=== PATIENT | female | born 1940 | race Caucasian/White ===

== ENCOUNTER 2018-05-18 01:01 | Emergency (ER) | payer OTHER, SELFPAY ==
[2018-05-18 01:12] VITALS: BP 124/74; PULSE 100; RESP 18; TEMP 37.3; O2SAT 94; BMI 32.9
[2018-05-18 02:50] VITALS: PULSE 98; RESP 16; O2SAT 99
[2018-05-18 03:07] LABS: RBC Urine None Seen (0-5/HPF)
[2018-05-18 03:08] LABS: Bilirubin Urine UA NEGATIVE (NEGATIVE); Color Urine UA YELLOW; Glucose Urine UA NEGATIVE (Normal); Ketones Urine UA TRACE (NEGATIVE); Leukocyte Esterase Urine UA TRACE (NEGATIVE); Nitrite Urine UA POSITIVE (Negative); Occult Blood Urine UA NEGATIVE (Negative); Protein Urine UA TRACE (Negative); Specific Gravity Urine UA 1.015 (1.000-1.035); Urobilinogen Urine UA 0.2 E.U./dL (0.2); pH Urine UA 7.5 (4.5-8.0)
[2018-05-18 03:11] LABS: Appearance Urine UA Slightly Cloudy
[2018-05-18 03:15] LABS: Bacteria Urine Many (>30); Culture Indicated Urine Specimen Cultured; Squamous Epithelial Cell Urine 0-1 /HPF; WBC Urine 5-10/HPF (0-5/HPF)
[2018-05-18] MEDS: CODEINE/ACETAMINOPHEN 30/300 TABLET 1 TAB PO (03:15)
[2018-05-18] MEDS: KETOROLAC 60 MG/2 ML VIAL 30 MG IM (03:15)
--- NOTE | 2018-05-18 03:17 | ED_ITS ---
HPI - Back Pain/Injury General Chief Complaint: Back Pain/Injury Stated Complaint: Right hip/back pain Time Seen by Provider: 05/18/18 01:10 Source: patient and family Mode of arrival: ambulatory Limitations: no limitations History of Present Illness HPI Narrative: very pleasant 77-year-old female obviously in distress in her right lower back. She states she drove [place] and [place] [facility] [place] today and this afternoon when stepping out of the car she felt a sudden pain in her right lower back. The pain is sharp and stabbing in very much worse when she moves, it improves when she remains still. She denies any numbness, tingling or weakness. She denies any dysuria, frequency or urgency. She denies any specific or member will injury. She denies any history of the same. Patient denies systemic symptoms such as fever, chills nor nausea or vomiting, she denies any change in appetite MD Complaint: back pain Onset (ago): hour(s) Duration: constant Location: lumbar spine Quality: burning and sharp Radiation: right leg and flank Severity scale (1-10): 1 Relieving factors: supine Exacerbating factors: walking Related Data Previous Rx's Medication Instructions Recorded simvastatin [Zocor] 20 mg PO HS #90 tab 12/20/17 pantoprazole [Protonix] 40 mg PO EVERY OTHER DAY #45 tab 12/22/17 zolpidem 10 mg tablet 5 - 10 mg PO HS #30 tab 03/23/18 hydroxyzine HCl 25 mg tablet 25 mg PO BEDTIME PRN #30 tab 04/01/18 naproxen 500 mg tablet 500 mg PO BID #180 tab 04/22/18 fluoxetine 20 mg capsule 20 mg PO Q DAY #30 tab 05/11/18 acetaminophen-codeine 1 tab PO Q6H PRN #10 tab 05/18/18 [Tylenol-Codeine #3] cephalexin [Keflex] 500 mg PO QID 7 Days #28 cap 05/18/18 Review of Systems Review of Systems All systems reviewed & are unremarkable except as noted in HPI and below Constitutional Denies chills, Denies fever(s), Denies lethargy and Denies weakness Eyes Denies change in vision, Denies eye discharge, Denies irritation and Denies loss of vision ENT Ears, Nose, Mouth, and Throat: Denies change in voice, Denies neck pain and Denies sore throat Cardiovascular Denies chest pain, Denies irregular heart rhythm, Denies lightheadedness, Denies palpitations, Denies dyspnea, Denies dyspnea on exertion and Denies orthopnea Respiratory Denies cough, Denies dyspnea, Denies dyspnea on exertion and Denies wheezing Gastrointestinal Gastrointestinal: Denies abdominal pain, Denies change in bowel habits, Denies diarrhea, Denies nausea and Denies vomiting Genitourinary Denies hematuria, Denies flank pain, Denies urinary incontinence and Denies urinary urgency Musculoskeletal Reports limited range of motion, Reports muscle cramps and Denies neck pain Integumentary/Breasts Denies pruritus, Denies erythema, Denies rash and Denies wounds Neurologic Denies confusion, Denies loss of vision and Denies weakness Psychiatric Denies anxiety, Denies confusion, Denies depression, Denies homicidal ideation and Denies suicidal ideation Endocrine Denies palpitations Hematologic/Lymphatic Denies easy bruising Allergic/Immunologic Denies wheezing Exam Initial Vital Signs Initial Vital Signs: Vital Signs Temperature 99.1 F 05/18/18 01:12 Pulse Rate 100 H 05/18/18 01:12 Respiratory Rate 18 05/18/18 01:12 Blood Pressure 124/74 H 05/18/18 01:12 Pulse Oximetry 94 05/18/18 01:12 Const General: cooperative and well developed Nutritional Appearance: well nourished Orientation: alert, awake, oriented x3 and not confused [facility] Head: normocephalic and atraumatic Ears: external ears normal and TM's normal bilaterally Nose: external nose normal and No nasal discharge Face and sinus: sinuses nontender, face symmetric, no sinus tenderness and No dry mucous membranes Mouth: oral mucosae normal and moist mucous membranes Teeth and gingiva: dentition normal Throat: tonsils normal and uvula midline Eyes General: appearance normal, both eyes and all related structures Eyelids: eyelids normal Conjunctivae: conjunctivae normal Sclera: sclerae normal Pupils: PERRL EOM: EOM intact bilaterally Neck Neck: normal visual inspection, trachea midline, No lymphadenopathy, No midline deformity and No JVD Lymphatic: No lymphedema Chest Chest: normal inspection of the chest Resp Effort & Inspection: normal respiratory effort, able to speak in complete sentences, no respiratory distress and no use of accessory muscles Auscultation: clear to auscultation bilaterally, no rales, no rhonchi and no wheezes Cardio Rate: regular rate Rhythm: regular rhythm Heart Sounds: no click, no gallops, no murmurs and no rubs Pulses: normal peripheral pulses GI Inspection: non-distended Palpation: soft, no hepatosplenomegaly, No guarding, No pulsatile mass and No tender Auscultation: normal bowel sounds Back/Spine/Pelvis Back: No CVA tenderness Cervical Spine: cervical ROM normal and No pain with cervical ROM Thoracic/Lumbar Spine: thoracic and lumbar spine normal to inspection, thoraco- lumbar ROM limited, thoracic spinal tenderness and straight leg raise positive Skin General: no rashes or lesions noted, No jaundice and No petechiae Neuro General: alert, oriented x3, gait normal and no focal motor deficits Speech: speech normal Extrem General: full ROM, no clubbing, cyanosis or edema, no pedal edema and no calf tenderness Right lower extremity: normal to inspection and full ROM Psych Appearance: well kempt Mental Status: mental status grossly normal Attitude: cooperative Thought Content: normal and suicidality Judgment: judgment good Course Orders Ordered: ED Orders 05/18/18 02:50 Urinalysis and Microscopic Stat Urine Culture Stat Discontinued Medications Acetaminophen/Codeine Phosphate (Tylenol #3) 1 tab PO NOW ONE Stop: 05/18/18 03:13 Cephalexin HCl (Keflex) 500 mg PO NOW ONE Stop: 05/18/18 03:26 Last Admin: 05/18/18 03:37 Dose: 500 mg Ketorolac Tromethamine (Toradol) 30 mg IM NOW ONE Stop: 05/18/18 03:13 Vital Signs - 8 hr 05/18/18 01:12 Temperature 99.1 F Pulse Rate 100 H Respiratory Rate 18 Blood Pressure 124/74 H Pulse Oximetry 94 MDM - Back Pain/Injury Differential Diagnosis Differential diagnosis: Likely lumbar radiculopathy, sciatica, strain of lumbar region, renal colic, pyelonephritis, thoracic back pain, AAA and discitis Medical Records Attestation: I reviewed the patient's medical records. Lab Data Lab Results 05/18/18 Range/Units 02:50 Urine Color Yellow Urine Appearance Slightly cloudy Urine pH 7.5 (4.5-8.0) Ur Specific [place] 1.015 (1.000-1.035) Urine Protein Trace H (Negative) Urine Glucose (UA) Negative (Normal) g/dL Urine Ketones Trace H (NEGATIVE) Urine Occult Blood Negative (Negative) Urine Nitrate Positive H (Negative) Urine Bilirubin Negative (NEGATIVE) Urine Urobilinogen 0.2 (0.2) E.U./dL Ur Leukocyte Esterase Trace H (NEGATIVE) Urine RBC None seen (0-5/HPF) Urine WBC 5-10/hpf H (0-5/HPF) Ur Squamous Epith Cells 0-1 /hpf Urine Bacteria Many (>30) H (None) Ur Culture Indicated? Specimen cultured Micro UA Comment Not Reportable MDM Narrative Medical decision making narrative: Lumbar strain considered high in the differential with reproducibility of pain with change in motion and straight leg test. She has no numbness or tingling nor change in patellar reflex consistent with cauda equina. She does have pain with internal and external rotation of the hip suggesting potentially a hip joint etiology such as bursitis or labrum. Finally she has urine suggesting the possibility I urinary source such as pyelonephritis, however I would not expect straight leg raising or other isolated motions of the lower extremity to exacerbate pain of pyelonephritis. Given the potential severity of illness associated with not treating pyelonephritis feel administer antibiotics Discharge Plan Departure Patient Disposition: Home, Self-Care Clinical Impression: Strain of lumbar region, Pyelonephritis Instructions: Kidney Infection Activity Restrictions/Additional Instructions: *You have been diagnosed with [ acute lumbar pain and possible pyelonephritis ] *What to do: *Take medications as directed *Follow up with your primary care provider in 2-3 days, call for an appointment. Let them know you were seen in the Emergency Department and that we ask that you be seen in follow up *Return to ER if you should have any new, worsening or concerning symptoms , such as [fever greater than 101 F, persistent vomiting, other bothersome symptoms ] Prescriptions: New acetaminophen-codeine [Tylenol-Codeine #3] 300-30 mg tablet 1 tab PO Q6H PRN (Reason: pain) Qty: 10 RF: 0 cephalexin [Keflex] 500 mg capsule 500 mg PO QID 7 Days Qty: 28 RF: 0 No Action simvastatin [Zocor] 20 MG tablet 20 mg PO HS Qty: 90 RF: 1 pantoprazole [Protonix] 40 MG tablet,delayed release (DR/EC) 40 mg PO EVERY OTHER DAY Qty: 45 RF: 3 zolpidem [Ambien] 10 mg tablet 5 - 10 mg PO HS Qty: 30 RF: 0 hydroxyzine HCl 25 mg tablet 25 mg PO BEDTIME PRN (Reason: insomnia) Qty: 30 RF: 0 naproxen 500 mg tablet 500 mg PO BID Qty: 180 RF: 0 fluoxetine 20 mg capsule 20 mg PO Q DAY Qty: 30 RF: 0
[2018-05-18] MEDS: cephALEXin 250 MG CAPSULE 500 MG PO (03:37)
[2018-05-18 04:54] VITALS: BP 152/49; PULSE 80; RESP 17; O2SAT 99
== END 2018-05-18 04:30 | disposition home or self-care (01) ==
PROVIDERS: Emergency Provider Emergency Medicine; Family Provider Family Medicine; PCP Family Medicine
DX: S39.012A Strain of muscle, fascia and tendon of lower back, initial encounter (principal); N12 Tubulo-interstitial nephritis, not specified as acute or chronic
CPT/HCPCS: 81001; 87077; 87086; 87186; 96372; 99282; 99283; J1885

== ENCOUNTER 2018-05-19 07:55 | Emergency (ER) | payer OTHER, SELFPAY ==
[2018-05-19 08:02] VITALS: BP 134/58; PULSE 85; RESP 14; TEMP 37; O2SAT 94; BMI 33.8
--- NOTE | 2018-05-19 08:32 | DI.CT.S_ITS ---
PROCEDURE: CT KIDNEY URETER BLADDER (KUB) INDICATIONS: right flank pain TECHNIQUE: Noncontrast 5 mm thick sections acquired from the diaphragms to the symphysis. 5 mm thick coronal and sagittal reformats were then performed. For radiation dose reduction, the following was used: automated exposure control, adjustment of mA and/or kV according to patient size. COMPARISON: None. FINDINGS: Image quality: Excellent. Lung bases: Lung bases are clear. Heart size is normal. Urinary system: Both kidneys are atrophic with numerous low-density parapelvic masses most consistent with parapelvic cysts. No kidney stones. No hydronephrosis or perinephric fat stranding. Both ureters appear non-dilated throughout their expected courses. Bladder wall thickness is normal; no calcified bladder stones. Other solid organs: 9 mm low-density nodule in the anterior left lobe of the liver (se 2 im 18). Otherwise the liver is unremarkable. Cholecystectomy. The pancreas, spleen, and adrenal glands are radiographically normal.. Peritoneum and bowel: Unenhanced bowel loops demonstrate normal wall thickness and caliber. No free fluid or air. Small esophageal michaelle hernia. Colonic diverticulosis without evidence of acute diverticulitis. Normal appendix. Nodes and vessels: No retroperitoneal or mesenteric adenopathy by size criteria. Aorta and inferior vena cava are normal in caliber. Abdominal wall: No ventral hernias. Pelvis: No free pelvic fluid. No inguinal hernias or adenopathy. Uterus is present and contains a small hyperdense uterine fibroid. Bones: No suspicious bony lesions. No vertebral body compression fractures. Thoracolumbar curvature. IMPRESSION: 1. Both kidneys are atrophic with numerous circumscribed low-density parapelvic masses most consistent with parapelvic cysts. Confirmation would require a CT urogram with and without contrast. No hydronephrosis or ureterectasis. No renal or ureteral calculi. 2. There is no radiographic etiology identified for the patient's right flank pain. 3. Low-density hepatic nodule likely represents a simple cyst would also be confirmed with CT urogram. Dictated by: Darell Plascencia M.D. on 05/19/2018 at 8:54 Approved by: Darell Plascencia M.D. on 05/19/2018 at 9:03
--- NOTE | 2018-05-19 08:35 | ED_ITS ---
HPI - Back Pain/Injury General Chief Complaint: Back Pain/Injury Stated Complaint: 'bladder infection' Time Seen by Provider: 05/19/18 08:10 Source: patient Mode of arrival: ambulatory Limitations: no limitations History of Present Illness HPI Narrative: Patient is a 77-year-old female presenting with right-sided flank pain. She was seen evaluated here 24 hr ago where she was diagnosed with pyelonephritis and a back strain. Her urine did actually grow E coli waiting for sensitivities. She was discharged home on Keflex and Tylenol threes. She says the pain continues to worsen is nonradiating. It hurts whenever she straightens her leg. She denies any nausea vomiting or fevers. She has no abdominal pain. She denies any injury to her back. MD Complaint: back pain Related Data Previous Rx's Medication Instructions Recorded simvastatin [Zocor] 20 mg PO HS #90 tab 12/20/17 pantoprazole [Protonix] 40 mg PO EVERY OTHER DAY #45 tab 12/22/17 zolpidem 10 mg tablet 5 - 10 mg PO HS #30 tab 03/23/18 hydroxyzine HCl 25 mg tablet 25 mg PO BEDTIME PRN #30 tab 04/01/18 naproxen 500 mg tablet 500 mg PO BID #180 tab 04/22/18 fluoxetine 20 mg capsule 20 mg PO Q DAY #30 tab 05/11/18 acetaminophen-codeine 1 tab PO Q6H PRN #10 tab 05/18/18 [Tylenol-Codeine #3] cephalexin [Keflex] 500 mg PO QID 7 Days #28 cap 05/18/18 Allergies Allergy/AdvReac Type Severity Reaction Status Date / Time No Known Drug Allergies Allergy Verified 05/19/18 08:02 Review of Systems Review of Systems All systems reviewed & are unremarkable except as noted in HPI and below Constitutional Denies chills, Denies fever(s), Denies lethargy and Denies weakness Cardiovascular Denies chest pain, Denies irregular heart rhythm, Denies lightheadedness, Denies palpitations, Denies dyspnea, Denies dyspnea on exertion and Denies orthopnea Respiratory Denies cough, Denies dyspnea, Denies dyspnea on exertion and Denies wheezing Gastrointestinal Gastrointestinal: Denies abdominal pain, Denies change in bowel habits, Denies diarrhea, Denies nausea and Denies vomiting Genitourinary Reports as per HPI Musculoskeletal Denies back pain, Denies muscle weakness, Denies numbness and Denies tingling Integumentary/Breasts Denies pruritus, Denies erythema, Denies rash and Denies wounds Neurologic Denies numbness, Denies tingling and Denies weakness Endocrine Denies palpitations Allergic/Immunologic Denies wheezing PFSH Medical History GERD (gastroesophageal reflux disease) (Chronic Unknown) Osteoarthritis (Chronic Unknown) Depression (Acute) Hyperlipidemia (Acute) Surgical History Hx of cholecystectomy (Resolved Unknown) Family History Sister Cancer Exam Initial Vital Signs Initial Vital Signs: Vital Signs Temperature 98.6 F 05/19/18 08:02 Pulse Rate 85 05/19/18 08:02 Respiratory Rate 14 05/19/18 08:02 Blood Pressure 134/58 H 05/19/18 08:02 Pulse Oximetry 94 05/19/18 08:02 Const General: cooperative, healthy appearing and acute distress ( Appears in mild discomfort holding her right flank) HENMT Head: normal to inspection and normocephalic Mouth: oral mucosae normal Eyes General: appearance normal, both eyes and all related structures Neck Neck: normal visual inspection, full ROM and no meningeal signs Chest Chest: normal inspection of the chest Resp Effort & Inspection: normal respiratory effort, able to speak in complete sentences, no respiratory distress and no use of accessory muscles Auscultation: clear to auscultation bilaterally, no rales, no rhonchi and no wheezes Cardio Rate: regular rate Rhythm: regular rhythm Heart Sounds: S1 normal and S2 normal GI Palpation: soft, No guarding and No tender Auscultation: normal bowel sounds General: CVA tenderness ( right side) Back/Spine/Pelvis Back: back tenderness ( right flank lumbar region tenderness) Thoracic/Lumbar Spine: thoracic and lumbar spine normal to inspection Sacroiliac Joints: nontender Skin General: no rashes or lesions noted, No jaundice and No petechiae Neuro General: alert, oriented x3, gait normal and no focal motor deficits Speech: speech normal Extrem General: full ROM, no clubbing, cyanosis or edema, no pedal edema and no calf tenderness Course Orders Ordered: ED Orders 05/19/18 08:32 CT kidney ureter bladder (KUB) Stat 05/19/18 08:45 Complete Blood Count AUTO DIFF Stat Comprehensive Metabolic Panel Stat Lactate (Lactic Acid) Stat Discontinued Medications Ceftriaxone Sodium/Dextrose (Rocephin) 1 gm in 50 mls @ 100 mls/hr IV NOW ONE Stop: 05/19/18 08:56 Last Infusion: 05/19/18 09:44 Dose: 0 mls/hr Admin: 05/19/18 08:52 Dose: 100 mls/hr Sodium Chloride (Normal Saline 0.9%) 1,000 mls @ 1,000 mls/hr IV BOLUS ONE Stop: 05/19/18 09:26 Last Infusion: 05/19/18 10:35 Dose: 0 mls/hr Admin: 05/19/18 08:52 Dose: 1,000 mls/hr Ketorolac Tromethamine (Toradol) 15 mg IV NOW ONE Stop: 05/19/18 08:28 Last Admin: 05/19/18 08:52 Dose: 15 mg Vital Signs - 8 hr 05/19/18 08:02 05/19/18 09:13 05/19/18 09:48 Temperature 98.6 F Pulse Rate 85 98 H 91 H Respiratory Rate 14 18 18 Blood Pressure 134/58 H Blood Pressure [Left Arm] 129/55 H 127/57 H Pulse Oximetry 94 92 94 05/19/18 10:36 Temperature 98.7 F Pulse Rate 89 Respiratory Rate 19 Blood Pressure 114/55 L Blood Pressure [Left Arm] Pulse Oximetry 96 MDM - Back Pain/Injury Lab Data Result diagrams: 05/19/18 08:45 05/19/18 08:45 Lab Results 05/19/18 05/19/18 05/19/18 Range/Units 08:45 08:45 08:45 WBC 12.3 H (4.5-11.0) X10^3/uL RBC 4.36 (4.0-5.2) X10^6/uL Hgb 13.0 (12.0-16.0) g/dL Hct 38.7 (36-46) % MCV 88.8 (80-100) fL MCH 29.7 (26-34) PG MCHC 33.5 (30-36) % RDW 13.3 (11.6-14.8) % Plt Count 170 (150-400) X10^3/uL Neut % (Auto) 87.7 H (50-75) % Lymph % (Auto) 3.1 L (25-40) % [place] % (Auto) 8.4 (3-14) % Eos % (Auto) 0.4 L (2-4) % Baso % (Auto) 0.4 (0-2) % Neut # (Auto) 81268 H (8799-0136) /uL Sodium 140 (137-145) mmol/L Potassium 4.1 (3.4-5.1) mmol/L Chloride 104 (98-107) mmol/L Carbon Dioxide 25 (22-32) mmol/L BUN 15 (7-17) mg/dL Creatinine 0.70 (0.52-1.04) mg/dL Estimated GFR > 60.0 (>60) mL/min BUN/Creatinine Ratio 21.4 (6-22) Glucose 118 H (80-110) mg/dL Lactate 0.7 (0.7-2.1) mmol/L Calcium 8.7 (8.4-10.2) mg/dL Total Bilirubin 1.1 (0.2-1.3) mg/dL AST 18 (14-36) IU/L ALT 28 (9-52) IU/L Alkaline Phosphatase 74 (38-126) U/L Total Protein 6.5 (6.3-8.2) g/dL Albumin 3.8 (3.5-5.0) g/dL Globulin 2.7 (1.7-4.1) g/dL Albumin/Globulin Ratio 1.4 (1.0-2.8) Imaging Data CT scan - abdomen: Radiologist's impression: PROCEDURE: CT KIDNEY URETER BLADDER (KUB) INDICATIONS: right flank pain TECHNIQUE: Noncontrast 5 mm thick sections acquired from the diaphragms to the symphysis. 5 mm thick coronal and sagittal reformats were then performed. For radiation dose reduction, the following was used: automated exposure control, adjustment of mA and/or kV according to patient size. COMPARISON: None. FINDINGS: Image quality: Excellent. Lung bases: Lung bases are clear. Heart size is normal. Urinary system: Both kidneys are atrophic with numerous low-density parapelvic masses most consistent with parapelvic cysts. No kidney stones. No hydronephrosis or perinephric fat stranding. Both ureters appear non-dilated throughout their expected courses. Bladder wall thickness is normal; no calcified bladder stones. Other solid organs: 9 mm low-density nodule in the anterior left lobe of the liver (se 2 im 18). Otherwise the liver is unremarkable. Cholecystectomy. The pancreas, spleen, and adrenal glands are radiographically normal.. Peritoneum and bowel: Unenhanced bowel loops demonstrate normal wall thickness and caliber. No free fluid or air. Small esophageal michaelle hernia. Colonic diverticulosis without evidence of acute diverticulitis. Normal appendix. Nodes and vessels: No retroperitoneal or mesenteric adenopathy by size criteria. Aorta and inferior vena cava are normal in caliber. Abdominal wall: No ventral hernias. Pelvis: No free pelvic fluid. No inguinal hernias or adenopathy. Uterus is present and contains a small hyperdense uterine fibroid. Bones: No suspicious bony lesions. No vertebral body compression fractures. Thoracolumbar curvature. IMPRESSION: 1. Both kidneys are atrophic with numerous circumscribed low-density parapelvic masses most consistent with parapelvic cysts. Confirmation would require a CT urogram with and without contrast. No hydronephrosis or ureterectasis. No renal or ureteral calculi. 2. There is no radiographic etiology identified for the patient's right flank pain. 3. Low-density hepatic nodule likely represents a simple cyst would also be confirmed with CT urogram. Dictated by: Darell Plascencia M.D. on 05/19/2018 at 8:54 Approved by: Darell Plascencia M.D. on 05/19/2018 at 9:03 MDM Narrative Medical decision making narrative: Patient does not appear septic. Urine did grow E coli that is pansensitive. She received a dose of IV Rocephin and she is on Keflex she likely just the longer on antibiotics. Her pain improved after Toradol. I discussed all findings with the patient and family, Education has been performed regarding treatment plan, diagnosis, warning signs and symptoms and all concerns have been addressed. Verbally agree with and understood all of the above. Discharge Plan Departure Patient Disposition: Home, Self-Care Clinical Impression: Pyelonephritis Discharge Date/Time: 05/19/18 10:36 Interventions: ED Discharge Assessment Last Done: 05/19/18 10:36 Instructions: DI for Kidney Infection Activity Restrictions/Additional Instructions: *You have been diagnosed with kidney infection *What to do: Increase fluid intake, rest *Continue to take medications as directed -finished antibiotic as previously prescribed -may try ibuprofen 400 mg every 6-8 hours if needed for [id number] *Follow up with your primary care provider in 2-3 days *Return to ER if you should have increasing pain, inability a take antibiotic, fever not controlled with Tylenol or ibuprofen or any new, worsening or concerning symptoms Prescriptions: No Action simvastatin [Zocor] 20 MG tablet 20 mg PO HS Qty: 90 RF: 1 pantoprazole [Protonix] 40 MG tablet,delayed release (DR/EC) 40 mg PO EVERY OTHER DAY Qty: 45 RF: 3 zolpidem [Ambien] 10 mg tablet 5 - 10 mg PO HS Qty: 30 RF: 0 hydroxyzine HCl 25 mg tablet 25 mg PO BEDTIME PRN (Reason: insomnia) Qty: 30 RF: 0 naproxen 500 mg tablet 500 mg PO BID Qty: 180 RF: 0 fluoxetine 20 mg capsule 20 mg PO Q DAY Qty: 30 RF: 0 acetaminophen-codeine [Tylenol-Codeine #3] 300-30 mg tablet 1 tab PO Q6H PRN (Reason: pain) Qty: 10 RF: 0 cephalexin [Keflex] 500 mg capsule 500 mg PO QID 7 Days Qty: 28 RF: 0 Referrals: Eden Andrews DO [Primary Care Provider] -
[2018-05-19] MEDS: SODIUM CHLORIDE 0.9% 1,000 ML 1000 ML IV (08:52)
[2018-05-19] MEDS: KETOROLAC 60 MG/2 ML VIAL 15 MG IV (08:52)
[2018-05-19] MEDS: CEFTRIAXONE 1 GM/50 ML FROZ.PIGGY IV (08:52)
[2018-05-19 08:56] LABS: Add Manual Diff / Slide Review NO; Basophils Percent Auto 0.4 % (0-2); Eosinophils Percent Auto 0.4 % (2-4); Hematocrit 38.7 % (36-46); Lymphocytes Percent Auto 3.1 % (25-40); Mean Corpuscular HGB Conc 33.5 % (30-36); Mean Corpuscular Hemoglobin 29.7 PG (26-34); Mean Corpuscular Volume 88.8 fL (80-100); Monocytes Percent Auto 8.4 % (3-14); Neutrophils Absolute Auto 10800 /uL (3000-5900); Neutrophils Percent Auto 87.7 % (50-75); Platelet Count 170 X10^3/uL (150-400); Red Blood Cell Count 4.36 X10^6/uL (4.0-5.2); Red Cell Distribution Width 13.3 % (11.6-14.8); White Blood Cell Count 12.3 X10^3/uL (4.5-11.0)
[2018-05-19 09:06] LABS: Alanine Aminotransferase 28 IU/L (9-52); Albumin 3.8 g/dL (3.5-5.0); Albumin Globulin Ratio 1.4 (1.0-2.8); Alkaline Phosphatase 74 U/L (38-126); Aspartate Aminotransferase 18 IU/L (14-36); BUN Creatinine Ratio 21.4 (6-22); Bilirubin Total 1.1 mg/dL (0.2-1.3); Blood Urea Nitrogen 15 mg/dL (7-17); Calcium 8.7 mg/dL (8.4-10.2); Carbon Dioxide 25 mmol/L (22-32); Chloride 104 mmol/L (98-107); Estimated Glomerular Filt Rate > 60.0 mL/min (>60); Globulin 2.7 g/dL (1.7-4.1); Glucose 118 mg/dL (80-110); HEMOLYSIS < 15 (0-50); Potassium 4.1 mmol/L (3.4-5.1); Sodium 140 mmol/L (137-145); Total Protein 6.5 g/dL (6.3-8.2)
[2018-05-19 09:07] LABS: Lactate (Lactic Acid) 0.7 mmol/L (0.7-2.1)
[2018-05-19 09:13] VITALS: BP 129/55; PULSE 98; RESP 18; O2SAT 92
[2018-05-19 09:48] VITALS: BP 127/57; PULSE 91; RESP 18; O2SAT 94
[2018-05-19 10:36] VITALS: BP 114/55; PULSE 89; RESP 19; TEMP 37.1; O2SAT 96
== END 2018-05-19 10:36 | disposition home or self-care (01) ==
PROVIDERS: Emergency Provider Emergency Medicine; Family Provider Family Medicine; PCP Family Medicine
DX: N12 Tubulo-interstitial nephritis, not specified as acute or chronic (principal)
CPT/HCPCS: 36591; 74176; 80053; 83605; 85025; 96361; 96365; 96375; 99283; 99284; J1885

== ENCOUNTER → 2018-05-23 16:08 | Outpatient (CLI) | payer OTHER, SELFPAY | PROVIDERS: Family Provider Family Medicine; PCP Family Medicine; Visit Provider Physician Assistant | DX: N30.00 Acute cystitis without hematuria (principal) | CPT/HCPCS: 87086 ==

== ENCOUNTER → 2018-05-25 15:16 | Outpatient (CLI) | payer OTHER, SELFPAY ==
[2018-05-25 16:13] LABS: BUN Creatinine Ratio 16.7 (6-22); Blood Urea Nitrogen 15 mg/dL (7-17); Calcium 9.1 mg/dL (8.4-10.2); Carbon Dioxide 30 mmol/L (22-32); Chloride 106 mmol/L (98-107); Estimated Glomerular Filt Rate > 60.0 mL/min (>60); Glucose 128 mg/dL (80-110); HEMOLYSIS < 15 (0-50); Potassium 3.7 mmol/L (3.4-5.1); Sodium 146 mmol/L (137-145)
== END ==
PROVIDERS: Family Provider Family Medicine; PCP Family Medicine; Visit Provider Family Medicine
DX: N39.0 Urinary tract infection, site not specified (principal)
CPT/HCPCS: 36415; 80048

== ENCOUNTER → 2018-06-23 08:05 | Outpatient (CLI) | payer OTHER, SELFPAY ==
[2018-06-23 09:07] LABS: Hemoglobin A1C% w Est Avg Glu 5.5 % (4.0-6.0)
[2018-06-23 09:18] LABS: Appearance Urine UA SL CLOUDY; Bilirubin Urine UA NEGATIVE (NEGATIVE); Color Urine UA YELLOW; Glucose Urine UA NEGATIVE (Normal); Ketones Urine UA NEGATIVE (NEGATIVE); Leukocyte Esterase Urine UA TRACE (NEGATIVE); Nitrite Urine UA Negative (Negative); Occult Blood Urine UA TRACE-LYSED (Negative); Protein Urine UA NEGATIVE (Negative); Specific Gravity Urine UA 1.025 (1.000-1.035); Urobilinogen Urine UA 0.2 E.U./dL (0.2)
[2018-06-23 09:29] LABS: Bacteria Urine Many (>30); Culture Indicated Urine Specimen Cultured; Mucus Urine 1+ (Negative); RBC Urine 0-1/HPF (0-5/HPF); Squamous Epithelial Cell Urine 1-5 /HPF; WBC Urine 10-30/HPF (0-5/HPF)
[2018-06-23 10:06] LABS: Alanine Aminotransferase 21 IU/L (9-52); Albumin 4.2 g/dL (3.5-5.0); Albumin Globulin Ratio 1.6 (1.0-2.8); Alkaline Phosphatase 96 U/L (38-126); Aspartate Aminotransferase 25 IU/L (14-36); BUN Creatinine Ratio 21.3 (6-22); Bilirubin Total 0.5 mg/dL (0.2-1.3); Blood Urea Nitrogen 17 mg/dL (7-17); Calcium 9.5 mg/dL (8.4-10.2); Carbon Dioxide 29 mmol/L (22-32); Chloride 105 mmol/L (98-107); Estimated Glomerular Filt Rate > 60.0 mL/min (>60); Globulin 2.6 g/dL (1.7-4.1); Glucose 101 mg/dL (80-110); HEMOLYSIS < 15 (0-50); Potassium 4.9 mmol/L (3.4-5.1); Sodium 144 mmol/L (137-145); Total Protein 6.8 g/dL (6.3-8.2)
== END ==
PROVIDERS: PCP Family Medicine; Visit Provider Family Medicine
DX: R73.9 Hyperglycemia, unspecified (principal); N39.0 Urinary tract infection, site not specified
CPT/HCPCS: 36415; 80053; 81003; 81015; 83036; 87077; 87086; 87186

== ENCOUNTER → 2018-09-02 07:33 | Outpatient (CLI) | payer OTHER, SELFPAY ==
[2018-09-02 07:58] LABS: BUN Creatinine Ratio 26.3 (6-22); Blood Urea Nitrogen 21 mg/dL (7-17); Estimated Glomerular Filt Rate > 60.0 mL/min (>60)
--- NOTE | 2018-09-02 08:49 | DI.CT.S_ITS ---
PROCEDURE: CT ABDOMEN PELVIS WO/W CON INDICATIONS: renal cyst, hx of pyelonephritis TECHNIQUE: Optional 5 mm thick noncontrast images acquired from the diaphragm to the symphysis pubis. After the administration of intravenous contrast, 5 mm thick images acquired from the diaphragm to the symphysis pubis after a 10-minute delay. 2 mm thick coronal and sagittal reformats were then performed of the kidneys and ureters. For radiation dose reduction, the following was used: automated exposure control, adjustment of mA and/or kV according to patient size. COMPARISON: [facility], CT, CT KIDNEY URETER BLADDER (KUB), 05/19/2018, 8:26. FINDINGS: Image quality: Excellent. Lung bases: Lung bases are clear. Heart size is normal. Urinary system: Both kidneys are normal in size, without hydronephrosis or nephrolithiasis on pre-contrast images. No perinephric fat stranding. There is normal bilateral renal enhancement. Renal calyces appear normal in morphology when filled with contrast. Opacified portions of both ureters demonstrate normal caliber. Bladder wall thickness is normal. No calcified bladder stones. There are simple peripelvic cysts greater on the left than the right, with expected mild impingement on the course of the renal pelvis and collecting system but no urinary tract obstruction is found and no urothelial or renal cortical mass is identified. Other solid organs: Liver is normal in size and enhancement. Gallbladder is surgically resected. Biliary system is non dilated. Pancreas enhances normally. Spleen is normal in size and enhancement. No adrenal nodules. Peritoneum and bowel: Bowel loops demonstrate normal wall thickness and caliber. No free fluid or air. Nodes and vessels: No retroperitoneal or mesenteric adenopathy by size criteria. Aorta and inferior vena cava are normal in size. Abdominal wall: No ventral hernias. Pelvis: No pathologic free pelvic fluid. No inguinal hernias or adenopathy. Normal appendix right lower quadrant. Extensive diverticulosis but without acute diverticulitis at this time. Bones: No suspicious bony lesions. No vertebral body compression fractures. IMPRESSION: Peripelvic cysts are present in each kidney, left greater than right, and no urothelial or renal cortical mass lesion is found. No source of recurrent urinary tract infection is found either. Dictated by: Emir Smalls M.D. on 09/02/2018 at 13:00 Approved by: Emir Smalls M.D. on 09/02/2018 at 13:05
== END ==
PROVIDERS: PCP Family Medicine; Visit Provider Family Medicine
DX: Z01.812 Encounter for preprocedural laboratory examination (principal); N28.1 Cyst of kidney, acquired; Z87.448 Personal history of other diseases of urinary system
CPT/HCPCS: 36415; 74178; 82565; 84520; Q9967

== ENCOUNTER → 2019-02-07 07:06 | Outpatient (CLI) | payer OTHER, SELFPAY ==
[2019-02-07 09:17] LABS: Add Manual Diff / Slide Review NO; Basophils Absolute Auto 0 /uL (0-100); Eosinophils Absolute Auto 100 /uL (0-450); Eosinophils Percent Auto 3.8 % (2-4); Hematocrit 42.4 % (36-46); Hemoglobin 14.3 g/dL (12.0-16.0); Lymphocytes Absolute Auto 1100 /uL (1100-4500); Lymphocytes Percent Auto 30.5 % (25-40); Mean Corpuscular HGB Conc 33.8 % (30-36); Mean Corpuscular Hemoglobin 30.5 PG (26-34); Mean Corpuscular Volume 90.4 fL (80-100); Monocytes Absolute Auto 400 /uL (0-900); Monocytes Percent Auto 10.2 % (3-14); Neutrophils Absolute Auto 1900 /uL (1500-7000); Neutrophils Percent Auto 54.5 % (50-75); Platelet Count 237 X10^3/uL (150-400); Red Blood Cell Count 4.69 X10^6/uL (4.0-5.2); Red Cell Distribution Width 13.5 % (11.6-14.8); White Blood Cell Count 3.5 X10^3/uL (4.5-11.0)
[2019-02-07 09:35] LABS: Alanine Aminotransferase 23 IU/L (9-52); Albumin 4.2 g/dL (3.5-5.0); Albumin Globulin Ratio 1.5 (1.0-2.8); Alkaline Phosphatase 83 U/L (38-126); Aspartate Aminotransferase 20 IU/L (14-36); BUN Creatinine Ratio 13.3 (6-22); Bilirubin Total 0.3 mg/dL (0.2-1.3); Blood Urea Nitrogen 12 mg/dL (7-17); Calcium 9.4 mg/dL (8.4-10.2); Carbon Dioxide 29 mmol/L (22-32); Chloride 104 mmol/L (98-107); Cholesterol 181 mg/dL (140-199); Estimated Glomerular Filt Rate > 60.0 mL/min (>60); Globulin 2.8 g/dL (1.7-4.1); Glucose 97 mg/dL (80-110); HDL Cholesterol 58 mg/dL (40-60); HEMOLYSIS < 15 (0-50); LDL Cholesterol Calculated 95 mg/dL (<100); Potassium 4.3 mmol/L (3.4-5.1); Sodium 142 mmol/L (137-145); Triglycerides 140 mg/dL (35-150)
[2019-02-07 10:02] LABS: Thyroid Stimulating Hormone 0.66 uIU/mL (0.47-4.68)
== END ==
PROVIDERS: PCP Family Medicine; Visit Provider Family Medicine
DX: E78.5 Hyperlipidemia, unspecified (principal); Z51.81 Encounter for therapeutic drug level monitoring
CPT/HCPCS: 36415; 80053; 80061; 84443; 85025

== ENCOUNTER → 2019-10-19 07:29 | Outpatient (CLI) | payer OTHER, SELFPAY ==
[2019-10-19 08:47] LABS: Add Manual Diff / Slide Review NO; Basophils Absolute Auto 0 /uL (0-100); Basophils Percent Auto 1.3 % (0-2); Eosinophils Absolute Auto 200 /uL (0-450); Eosinophils Percent Auto 6.8 % (2-4); Hematocrit 42.4 % (36-46); Hemoglobin 14.1 g/dL (12.0-16.0); Lymphocytes Absolute Auto 1000 /uL (1100-4500); Lymphocytes Percent Auto 28.9 % (25-40); Mean Corpuscular HGB Conc 33.3 % (30-36); Mean Corpuscular Hemoglobin 29.7 PG (26-34); Mean Corpuscular Volume 89.3 fL (80-100); Monocytes Absolute Auto 300 /uL (0-900); Monocytes Percent Auto 10.2 % (3-14); Neutrophils Absolute Auto 1800 /uL (1500-7000); Neutrophils Percent Auto 52.8 % (50-75); Platelet Count 201 X10^3/uL (150-400); Red Blood Cell Count 4.74 X10^6/uL (4.0-5.2); White Blood Cell Count 3.3 X10^3/uL (4.5-11.0)
[2019-10-19 08:51] LABS: Hemoglobin A1C% w Est Avg Glu 5.1 % (4.0-6.0)
[2019-10-19 09:21] LABS: Alanine Aminotransferase 11 IU/L (<35); Albumin Globulin Ratio 1.7 (1.0-2.8); Alkaline Phosphatase 91 U/L (38-126); Aspartate Aminotransferase 21 IU/L (14-36); BUN Creatinine Ratio 13.3 (6-22); Bilirubin Total 0.4 mg/dL (0.2-1.3); Blood Urea Nitrogen 12 mg/dL (7-17); Calcium 9.3 mg/dL (8.4-10.2); Carbon Dioxide 29 mmol/L (22-32); Chloride 105 mmol/L (98-107); Cholesterol 166 mg/dL (140-199); Estimated Glomerular Filt Rate > 60.0 mL/min (>60); Globulin 2.3 g/dL (1.7-4.1); Glucose 92 mg/dL (80-110); HDL Cholesterol 66 mg/dL (40-60); HEMOLYSIS < 15 (0-50); LDL Cholesterol Calculated 74 mg/dL (<100); Potassium 4.3 mmol/L (3.4-5.1); Sodium 140 mmol/L (137-145); Total Protein 6.3 g/dL (6.3-8.2); Triglycerides 129 mg/dL (35-150)
[2019-10-19 09:52] LABS: Thyroid Stimulating Hormone 1.05 uIU/mL (0.47-4.68)
== END ==
PROVIDERS: PCP Family Medicine; Visit Provider Family Medicine
DX: E78.5 Hyperlipidemia, unspecified (principal); K21.9 Gastro-esophageal reflux disease without esophagitis; Z51.81 Encounter for therapeutic drug level monitoring
CPT/HCPCS: 36415; 80053; 80061; 83036; 84443; 85025

== ENCOUNTER → 2019-12-01 09:55 | Outpatient (CLI) | payer OTHER, SELFPAY ==
--- NOTE | 2019-12-01 09:56 | DI.MG.S_ITS ---
BILATERAL DIGITAL SCREENING MAMMOGRAM 3D/2D WITH CAD: 12/01/2019 CLINICAL: Routine screening. Family history of breast cancer. Comparison is made to exams dated: 12/14/2017 mammogram, 12/01/2016 mammogram, and 10/21/2015 mammogram - [facility]. The tissue of both breasts is heterogeneously dense. This may lower the sensitivity of mammography. Current study was also evaluated with a Computer Aided Detection (CAD) system. There is an oval low density asymmetry with an indistinct margin in the left breast posterior depth central to the nipple seen on the craniocaudal view only. No other significant masses, calcifications, or other findings are seen in either breast. IMPRESSION: INCOMPLETE: NEEDS ADDITIONAL IMAGING EVALUATION The oval low density asymmetry in the left breast is indeterminate. Mediolateral and spot compression views as well as additional views with possible ultrasound are recommended. This exam was interpreted at Station ID: [id number]. NOTE: For mammograms, a report in lay terms will be sent to the patient. Approximately 15% of breast malignancies will not be visualized mammographically. In the management of a palpable breast mass, a negative mammogram must not discourage biopsy of a clinically suspicious lesion. Electronically Signed By: Omari green/lc:12/01/2019 11:44:31 letter sent: Additional Imaging Needed ACR BI-RADS Category 0: Incomplete 3340F
== END ==
PROVIDERS: PCP Family Medicine; Visit Provider Family Medicine
DX: Z12.31 Encounter for screening mammogram for malignant neoplasm of breast (principal); Z80.3 Family history of malignant neoplasm of breast
CPT/HCPCS: 77063; 77067

== ENCOUNTER → 2019-12-07 14:27 | Outpatient (CLI) | payer OTHER, SELFPAY ==
--- NOTE | 2019-12-07 14:33 | DI.MG.S_ITS ---
Patient Name: GURINDER BLISS date: 1940 Sex: F Attending Physician: Juliana Indications: Date: 12/07/2019 14:33 At the request of: DALI WEEKS Procedure: MM special view LT UNILATERAL LEFT DIGITAL DIAGNOSTIC MAMMOGRAM 3D/2D WITH ADDITIONAL VIEWS: 12/07/2019 CLINICAL: Additional evaluation requested from prior study. Comparison is made to exams dated: 12/01/2019 mammogram, 12/14/2017 mammogram, and 12/01/2016 mammogram - [facility]. The tissue of left breast is heterogeneously dense. This may lower the sensitivity of mammography. Previously identified oval low density asymmetry with an indistinct margin in the left breast posterior depth central to the nipple seen on the craniocaudal view only on comparison screening mammograms of 12/01/19 persists with additional views. This localizes to the superior left breast on additional views. IMPRESSION: INCOMPLETE: NEEDS ADDITIONAL IMAGING EVALUATION Previously identified oval low density asymmetry with an indistinct margin in the left breast posterior depth central to the nipple seen on the craniocaudal view only on comparison screening mammograms of 12/01/19 persists with additional views. This localizes to the superior left breast on additional views. A targeted ultrasound is recommended for further evaluation, and will be performed immediately following this exam. This exam was interpreted at Station ID: [id number]. NOTE: For mammograms, a report in lay terms will be sent to the patient. Approximately 15% of breast malignancies will not be visualized mammographically. In the management of a palpable breast mass, a negative mammogram must not discourage biopsy of a clinically suspicious lesion. Electronically Signed By: Juan Barr M.D. ecl/:12/07/2019 15:00:35 ACR BI-RADS Category 0: Incomplete 3340F Continued Report - Page 2 of 2 Patient Name: GURINDER BLISS date: 1940 Sex: F Attending Physician: Juliana Indications: Date: 12/07/2019 14:33 At the request of: DALI WEEKS Procedure: MM special view LT
--- NOTE | 2019-12-07 15:35 | DI.US.S_ITS ---
Patient Name: GURINDER BLISS date: 1940 Sex: F Attending Physician: Rj Indications: Date: 12/07/2019 15:37 At the request of: KENTRELL CANNON Procedure: US breast LT limited LIMITED ULTRASOUND OF LEFT BREAST: 12/07/2019 CLINICAL: Patient returns for additional imaging over an asymmetry in the left breast. Comparison is made to exams dated: 12/01/2019 mammogram, 12/14/2017 mammogram, 12/01/2016 mammogram, and 12/07/2019 mammogram - [facility]. Color flow and real-time ultrasound of the left breast 6-7 o'clock, 11-12 o'clock, and retroareolar regions were performed. Ashford scale images of the real-time examination were reviewed. No underlying breast mass or abnormality is identified. There is no ultrasound correlate for the previously identified oval low density asymmetry with an indistinct margin in the left breast posterior depth central to the nipple seen on the craniocaudal view only on comparison screening mammograms of 12/01/19 which persisted with additional diagnostic views performed earlier today 12/07/19. IMPRESSION: PROBABLY BENIGN No ultrasound correlate for the previously identified oval low density asymmetry with an indistinct margin in the left breast posterior depth central to the nipple seen on the craniocaudal view only on comparison screening and diagnostic mammography. A follow-up mammogram and possible ultrasound in 6 months is recommended to demonstrate stability. The patient is advised to monitor her breasts and to return sooner for re-evaluation should she feel anything grow or change. This exam was interpreted at Station ID: [id number]. Electronically Signed By: Juan Barr M.D. ecl/:12/07/2019 16:12:56 letter sent: Followup Recommended Ultrasound BI-RADS: 3 Probably benign
== END ==
PROVIDERS: PCP Family Medicine; Referring Provider Family Medicine; Visit Provider Family Medicine
DX: R92.8 Other abnormal and inconclusive findings on diagnostic imaging of breast (principal); N64.89 Other specified disorders of breast
CPT/HCPCS: 76642; 77065; G0279

== ENCOUNTER → 2020-06-06 12:33 | Outpatient (CLI) | payer OTHER, SELFPAY ==
--- NOTE | 2020-06-06 | DI.MG.S_ITS ---
UNILATERAL LEFT DIGITAL DIAGNOSTIC MAMMOGRAM 3D/2D SHORT-TERM FOLLOW-UP: 06/06/2020 CLINICAL: Patient returns for a 6 month follow up of the left breast. Comparison is made to exams dated: 12/07/2019 mammogram, 12/01/2019 mammogram, and 12/14/2017 mammogram - [facility]. The tissue of left breast is heterogeneously dense. This may lower the sensitivity of mammography. There is a 0.7 cm oval low density focal asymmetry with indistinct margins in the left breast at 12 o'clock posterior depth. This is not significantly changed from the prior study and similar to the 2018 study. No other significant masses or calcifications are seen in the breast. IMPRESSION: PROBABLY BENIGN The 0.7 cm oval low density focal asymmetry in the left breast is probably benign. A follow-up mammogram in 6 months is recommended. A follow-up mammogram in 6 months is recommended to demonstrate stability. Patient will be due for screening mammography of the contralateral breast at that time. This exam was interpreted at Station ID: [id number]. NOTE: For mammograms, a report in lay terms will be sent to the patient. Approximately 15% of breast malignancies will not be visualized mammographically. In the management of a palpable breast mass, a negative mammogram must not discourage biopsy of a clinically suspicious lesion. Electronically Signed By: Omari green/:06/06/2020 13:18:14 letter sent: Followup Recommended ACR BI-RADS Category 3: Probably benign 3343F
== END ==
PROVIDERS: PCP Nurse Practitioner Family; Referring Provider Nurse Practitioner Family; Visit Provider Nurse Practitioner Family
DX: R92.8 Other abnormal and inconclusive findings on diagnostic imaging of breast (principal); N64.89 Other specified disorders of breast; D72.819 Decreased white blood cell count, unspecified
CPT/HCPCS: 77065; G0279

== ENCOUNTER → 2020-09-10 11:16 | Outpatient (CLI) | payer OTHER, SELFPAY ==
[2020-09-10 11:59] LABS: Add Manual Diff / Slide Review NO; Basophils Absolute Auto 0 /uL (0-100); Basophils Percent Auto 0.6 % (0-2); Eosinophils Absolute Auto 100 /uL (0-450); Eosinophils Percent Auto 2.5 % (2-4); Hemoglobin 14.1 g/dL (12.0-16.0); Lymphocytes Absolute Auto 1100 /uL (1100-4500); Lymphocytes Percent Auto 23.3 % (25-40); Mean Corpuscular HGB Conc 32.7 % (30-36); Mean Corpuscular Hemoglobin 29.8 PG (26-34); Mean Corpuscular Volume 90.9 fL (80-100); Monocytes Absolute Auto 400 /uL (0-900); Monocytes Percent Auto 9.6 % (3-14); Neutrophils Absolute Auto 3000 /uL (1500-7000); Platelet Count 230 X10^3/uL (150-400); Red Blood Cell Count 4.73 X10^6/uL (4.0-5.2); Red Cell Distribution Width 13.3 % (11.6-14.8); White Blood Cell Count 4.6 X10^3/uL (4.5-11.0)
== END ==
PROVIDERS: PCP Nurse Practitioner Family; Referring Provider Nurse Practitioner Family; Visit Provider Nurse Practitioner Family
DX: D72.819 Decreased white blood cell count, unspecified (principal)
CPT/HCPCS: 36415; 85025

== ENCOUNTER → 2020-11-22 12:23 | Outpatient (CLI) | payer MEDICARE, SELFPAY ==
[2020-11-22] MEDS: COVID-19 VACC #1, MRNA(MOD) 100 MCG/0.5 ML VIAL IM (12:37)
== END ==
PROVIDERS: PCP Nurse Practitioner Family; Visit Provider Internal Medicine
DX: Z23 Encounter for immunization (principal)
CPT/HCPCS: 0011A; 91301

== ENCOUNTER → 2020-12-13 07:09 | Outpatient (CLI) | payer OTHER, SELFPAY ==
--- NOTE | 2020-12-13 08:28 | DI.MG.S_ITS ---
BILATERAL DIGITAL DIAGNOSTIC MAMMOGRAM 3D/2D SHORT-TERM FOLLOW-UP: 12/13/2020 CLINICAL: Short term follow up of the left breast, due for bilateral imaging. Comparison is made to exams dated: 06/06/2020 mammogram, 12/07/2019 mammogram, 12/01/2019 mammogram, 12/14/2017 mammogram, and 10/21/2015 mammogram - [facility]. The tissue of both breasts is heterogeneously dense. This may lower the sensitivity of mammography. There is a 0.7 cm oval low density focal asymmetry with an indistinct margin in the left breast at 12 o'clock posterior depth. This is not significantly changed. This was not seen on prior ultrasound. No other significant masses, calcifications, or other findings are seen in either breast. IMPRESSION: PROBABLY BENIGN The 0.7 cm oval low density focal asymmetry in the left breast resembles an intramammary node and is probably benign. A follow-up mammogram in 12 months is recommended to demonstrate long-term stability. Exam findings were conveyed to the patient. This exam was interpreted at Station ID: [id number]. NOTE: For mammograms, a report in lay terms will be sent to the patient. Approximately 15% of breast malignancies will not be visualized mammographically. In the management of a palpable breast mass, a negative mammogram must not discourage biopsy of a clinically suspicious lesion. Electronically Signed By: Rakan Antony M.D. [facility] [place]/:12/13/2020 09:16:37 letter sent: Followup Recommended ACR BI-RADS Category 3: Probably benign 3343F
[2020-12-13 08:39] LABS: Hematocrit 44.9 % (36-46); Hemoglobin 14.5 g/dL (12.0-16.0); Mean Corpuscular HGB Conc 32.2 % (30-36); Mean Corpuscular Hemoglobin 29.5 PG (26-34); Mean Corpuscular Volume 91.5 fL (80-100); Platelet Count 206 X10^3/uL (150-400); Red Blood Cell Count 4.91 X10^6/uL (4.0-5.2); Red Cell Distribution Width 13.1 % (11.6-14.8); White Blood Cell Count 3.2 X10^3/uL (4.5-11.0)
[2020-12-13 08:54] LABS: Alanine Aminotransferase 11 IU/L (<35); Albumin 4.2 g/dL (3.5-5.0); Albumin Globulin Ratio 1.8 (1.0-2.8); Alkaline Phosphatase 77 U/L (38-126); Aspartate Aminotransferase 21 IU/L (14-36); BUN Creatinine Ratio 10.7 (6-22); Bilirubin Total 0.4 mg/dL (0.2-1.3); Blood Urea Nitrogen 9 mg/dL (7-17); Calcium 9.9 mg/dL (8.4-10.2); Carbon Dioxide 32 mmol/L (22-32); Chloride 105 mmol/L (98-107); Cholesterol 148 mg/dL (140-199); Estimated Glomerular Filt Rate > 60.0 mL/min (>60); Globulin 2.3 g/dL (1.7-4.1); Glucose 88 mg/dL (80-110); HDL Cholesterol 73 mg/dL (40-60); HEMOLYSIS < 15 (0-50); LDL Cholesterol Calculated 55 mg/dL (<100); Potassium 4.1 mmol/L (3.4-5.1); Sodium 140 mmol/L (137-145); Total Protein 6.5 g/dL (6.3-8.2); Triglycerides 102 mg/dL (35-150)
== END ==
PROVIDERS: PCP Nurse Practitioner Family; Referring Provider Nurse Practitioner Family; Visit Provider Nurse Practitioner Family
DX: R92.8 Other abnormal and inconclusive findings on diagnostic imaging of breast (principal); N64.89 Other specified disorders of breast; E78.5 Hyperlipidemia, unspecified; F32.9 Major depressive disorder, single episode, unspecified; M19.90 Unspecified osteoarthritis, unspecified site; D72.819 Decreased white blood cell count, unspecified
CPT/HCPCS: 36415; 77066; 80053; 80061; 85027; G0279

== ENCOUNTER → 2020-12-20 12:51 | Outpatient (CLI) | payer MEDICARE, SELFPAY ==
[2020-12-20] MEDS: COVID-19 VACC #2, MRNA(MOD) 100 MCG/0.5 ML VIAL IM (13:01)
== END ==
PROVIDERS: PCP Nurse Practitioner Family; Visit Provider Internal Medicine
DX: Z23 Encounter for immunization (principal)
CPT/HCPCS: 0012A; 91301

== ENCOUNTER → 2021-07-10 10:57 | Outpatient (CLI) | payer OTHER, SELFPAY ==
[2021-07-10 11:49] LABS: COVID19 -Nasal RAPID Negative (Negative)
== END ==
PROVIDERS: PCP Nurse Practitioner Family; Visit Provider Nurse Practitioner
DX: J02.9 Acute pharyngitis, unspecified (principal); R09.81 Nasal congestion; Z20.822 Contact with and (suspected) exposure to COVID-19
CPT/HCPCS: 87635

== ENCOUNTER → 2021-12-15 08:33 | Outpatient (CLI) | payer OTHER, SELFPAY ==
--- NOTE | 2021-12-15 08:34 | DI.MG.S_ITS ---
BILATERAL DIGITAL DIAGNOSTIC MAMMOGRAM 3D/2D: 12/15/2021 CLINICAL: 1 year follow up for left breast. Comparison is made to exams dated: 12/13/2020 mammogram, 06/06/2020 mammogram, 12/07/2019 mammogram, 12/01/2019 mammogram, and 12/14/2017 mammogram - [facility]. The tissue of both breasts is heterogeneously dense. This may lower the sensitivity of mammography. There is a 0.7 cm oval low density focal asymmetry with an obscured margin in the left breast at 12 o'clock posterior depth. This is not significantly changed and was not seen on the prior ultrasound. No other significant masses, calcifications, or other findings are seen in either breast. IMPRESSION: BENIGN There is no mammographic evidence of malignancy. The 0.7 cm oval low density focal asymmetry with an obscured margin in the left breast at 12 o'clock posterior depth has demonstrated two years of stability and is consistent with a benign process. A 1 year screening mammogram is recommended. Findings and recommendations were conveyed to the patient during today's evaluation. This exam was interpreted at Station ID: [id number]. NOTE: For mammograms, a report in lay terms will be sent to the patient. Approximately 15% of breast malignancies will not be visualized mammographically. In the management of a palpable breast mass, a negative mammogram must not discourage biopsy of a clinically suspicious lesion. Electronically Signed By: Kyaw Perez M.D. aty/:12/15/2021 09:31:35 letter sent: Normal Exam ACR BI-RADS Category 2: Benign Finding(s) 3342F
== END ==
PROVIDERS: PCP Nurse Practitioner Family; Referring Provider Nurse Practitioner Family; Visit Provider Nurse Practitioner Family
DX: R92.8 Other abnormal and inconclusive findings on diagnostic imaging of breast (principal); N64.89 Other specified disorders of breast
CPT/HCPCS: 77066; G0279

== ENCOUNTER → 2021-12-26 07:27 | Outpatient (CLI) | payer OTHER, SELFPAY ==
[2021-12-26 09:05] LABS: Hematocrit 44.3 % (36-46); Hemoglobin 14.3 g/dL (12.0-16.0); Mean Corpuscular HGB Conc 32.3 % (30-36); Mean Corpuscular Hemoglobin 29.6 PG (26-34); Mean Corpuscular Volume 91.9 fL (80-100); Platelet Count 218 X10^3/uL (150-400); Red Blood Cell Count 4.82 X10^6/uL (4.0-5.2); Red Cell Distribution Width 13.7 % (11.6-14.8); White Blood Cell Count 3.5 X10^3/uL (4.5-11.0)
[2021-12-26 11:03] LABS: Alanine Aminotransferase 13 IU/L (<35); Albumin 4.2 g/dL (3.5-5.0); Albumin Globulin Ratio 1.6 (1.0-2.8); Alkaline Phosphatase 70 U/L (38-126); Aspartate Aminotransferase 24 IU/L (14-36); BUN Creatinine Ratio 13.5 (6-22); Bilirubin Total 0.5 mg/dL (0.2-1.3); Blood Urea Nitrogen 13 mg/dL (7-17); Calcium 9.1 mg/dL (8.4-10.2); Carbon Dioxide 26 mmol/L (22-32); Chloride 108 mmol/L (98-107); Cholesterol 178 mg/dL (140-199); Estimated Glomerular Filt Rate 56.1 mL/min (>60); Globulin 2.7 g/dL (1.7-4.1); Glucose 95 mg/dL (80-110); HDL Cholesterol 75 mg/dL (40-60); HEMOLYSIS < 15 (0-50); LDL Cholesterol Calculated 75 mg/dL (<100); Potassium 4.1 mmol/L (3.4-5.1); Sodium 141 mmol/L (137-145); Total Protein 6.9 g/dL (6.3-8.2); Triglycerides 142 mg/dL (35-150)
== END ==
PROVIDERS: PCP Nurse Practitioner Family; Referring Provider Nurse Practitioner Family; Visit Provider Nurse Practitioner Family
DX: Z13.6 Encounter for screening for cardiovascular disorders (principal); Z00.00 Encounter for general adult medical examination without abnormal findings
CPT/HCPCS: 36415; 80053; 80061; 85027

== ENCOUNTER → 2021-12-29 09:39 | Outpatient (CLI) | payer OTHER, SELFPAY ==
[2021-12-31 08:09] LABS: Fecal Immunochemical Test Negative (Negative)
== END ==
PROVIDERS: PCP Nurse Practitioner Family; Referring Provider Nurse Practitioner Family; Visit Provider Nurse Practitioner Family
DX: Z12.11 Encounter for screening for malignant neoplasm of colon (principal)
CPT/HCPCS: 82274

== ENCOUNTER → 2022-02-19 09:18 | Outpatient (CLI) | payer OTHER, SELFPAY ==
[2022-02-19 10:34] LABS: BUN Creatinine Ratio 15.6 (6-22); Blood Urea Nitrogen 15 mg/dL (7-17); Calcium 9.1 mg/dL (8.4-10.2); Carbon Dioxide 27 mmol/L (22-32); Chloride 109 mmol/L (98-107); Estimated Glomerular Filt Rate > 60 mL/min (>60); Glucose 107 mg/dL (80-110); HEMOLYSIS < 15 (0-50); Potassium 4.3 mmol/L (3.4-5.1); Sodium 141 mmol/L (137-145)
== END ==
PROVIDERS: PCP Nurse Practitioner Family; Referring Provider Nurse Practitioner Family; Visit Provider Nurse Practitioner Family
DX: R94.4 Abnormal results of kidney function studies (principal)
CPT/HCPCS: 36415; 80048

== ENCOUNTER 2022-04-12 10:40 | Emergency (ER) | payer OTHER, SELFPAY ==
[2022-04-12] VITALS (11 sets, daily range): BP systolic 119–146; BP diastolic 61–77; PULSE 76–98; RESP 18; TEMP 36.8; O2SAT 94–98; BMI 30.1
--- NOTE | 2022-04-12 11:04 | DI.RAD.S_ITS ---
PROCEDURE: XR CHEST 1V INDICATIONS: chest pain TECHNIQUE: One view of the chest was acquired. COMPARISON: [facility], CHEST 2 VIEW, 08/19/2009, 14:28. [facility], CHEST 2 VIEW, 01/20/2013, 10:40. FINDINGS: Surgical changes and devices: None. Lungs and pleura: On this semiupright portable chest examination, no large pneumothorax or large pleural effusions are seen. No focal infiltrates are seen. Low lung volumes are noted. This causes a crowded appearance to the lung markings and limits evaluation. Mediastinum: Mediastinal contours appear normal. Heart size is normal. Bones and chest wall: No suspicious bony lesions. Age-appropriate bony degenerative changes are seen. Mild dextroconvex scoliotic curvature is seen. Overlying soft tissues appear unremarkable. IMPRESSION: Limited portable chest examination, without a significant cardiopulmonary abnormality identified. Dictated by: Teodoro Multani M.D. on 04/12/2022 at 10:36 Approved by: Teodoro Multani M.D. on 04/12/2022 at 10:37
--- NOTE | 2022-04-12 12:07 | ED_ITS ---
HPI - Dizziness General Chief Complaint: Dizziness Stated Complaint: dizzy naseaous Time Seen by Provider: 04/12/22 12:05 Source: patient and family Mode of arrival: Ambulatory Limitations: no limitations History of Present Illness HPI Narrative: This is a 81-year-old female with history of dyslipidemia, depression and insomnia. Patient Comes emergency department who states upon awakening this morning when she got up out of bed she felt dizzy, she felt little lightheaded she did have any passing out, she does not admit directly that she has spinning of the room but does feel be off balance and it is worse with movement of her head even when seated. She only really appreciates that when she is walking. About well-seated in the bed if she moves her head quickly or vigorously she has symptoms. She denies headache, no acute vision changes, no numbness, tingling or weakness in her extremities, no facial droop or issues with speech. She has not had similar symptoms in the past. No fevers, chills or cold cough or congestive symptoms. Denies chest pain or shortness of breath. No nausea or vomiting, no issues with bowel movements or urination. She is on simvastatin, sertraline and trazodone daily. She has had a prior cholecystectomy 30 years ago. No allergies. No tobacco, alcohol or illicit. Her primary care was Lorelei Patel who has left the area and she is currently transitioning to a new provider in the same clinic. Related Data Previous Rx's Medication Instructions Recorded trazodone 50 mg tablet See Rx Instructions .Route 01/16/22 .COMPLEX #180 tabs sertraline 50 mg tablet 50 mg PO DAILY #90 tabs 01/20/22 simvastatin 20 mg tablet See Rx Instructions .Route 01/20/22 .COMPLEX #90 tabs meclizine 25 mg tablet 25 mg PO QID PRN dizziness #20 tabs 04/12/22 Allergies Allergy/AdvReac Type Severity Reaction Status Date / Time No Known Drug Allergies Allergy Verified 01/20/22 10:37 Review of Systems Review of Systems ROS Unobtainable: All systems reviewed & are unremarkable except as noted in HPI and below Patient History Medical History Abnormal mammogram Decreased glomerular filtration rate (GFR) (12/2021) Depression GERD (gastroesophageal reflux disease) (Unknown) Hyperlipidemia Osteoarthritis (Unknown) Pain in both knees Surgical History Hx of cholecystectomy (Unknown) Family History Sister Cancer Social History Smoking Status: Never smoker second hand exposure: No alcohol intake: never substance use type: does not use Smoking Status: Never smoker Substance Use Type: does not use Exam Narrative Exam Narrative: GEN: well nourished, well appearing female, alert and oriented x 3, patient appears to be in mild distress. HEENT: Atraumatic, pupils are equal round reactive to light, extraocular movements are intact, nares are clear, TMs are clear with no fluid, there is no conjunctival pallor. Throat is clear without any exudates, erythema, tonsillar enlargement or uvular deviation, no facial droop HEART: Regular rate and rhythm without murmur, clicks, rubs. No carotid bruits, pulses are equal in upper and lower extremities LUNGS:Lungs clear to auscultation, no wheezes, rales, crackles, chest moves symmetrically ABD:bowel sounds normal, soft, non-tender, no guarding, rebound, rigidity, no masses noted, no hepatosplenomegaly :No CVA tenderness MSCL: Non-tender, no muscle atrophy, muscles strength 5/5 upper and lower extremities, full range of motion NEURO:CN 2-12 intact, sensation normal, reflexes 2/4 upper and lower extremities. finger nose finger test normal, heel brambila test normal SKIN: No rash, erythema or other skin changes Initial Vital Signs Initial Vital Signs: Vital Signs Temperature 98.3 F 04/12/22 10:58 Pulse Rate 90 04/12/22 10:58 Respiratory Rate 18 04/12/22 10:58 Blood Pressure 145/70 H 04/12/22 10:58 Pulse Oximetry 97 04/12/22 10:58 Oxygen Delivery Method 04/12/22 10:58 Scores NIH Stroke Scale Level of Conciousness: Alert, keenly responsive Ask month/age: Answers both questions correctly. Open/close eyes, close hand: Performs both tasks correctly Best gaze horizontal: Normal Visual bragg: No visual loss Facial palsy: Normal symetrical movement Left arm drift: No drift for full 10 sec Right arm drift: No drift for full 10 sec Left leg drift: No drift for full 5 sec Right leg drift: No drift for full 5 sec Limb ataxia: Absent Sensory on face/arms/legs: Normal, no sensory loss Best language: No aphasia, normal Dysarthria: Normal Extinction or inattention: No abnormality Total NIH Stroke scale score: 0 Course Orders Ordered: Discontinued Medications Meclizine HCl (Meclizine Hcl 12.5 Mg Tablet) 25 mg PO NOW ONE Stop: 04/12/22 12:38 Last Admin: 04/12/22 13:00 Dose: 25 mg Documented By: ELISHA Vital Signs Vital signs: Vital Signs - 8 hr 04/12/22 10:58 04/12/22 12:08 04/12/22 13:25 Temperature 98.3 F Pulse Rate 90 84 Pulse Rate [Orthostatic Lying] 76 Pulse Rate [Orthostatic Sitting] 83 Pulse Rate [Orthostatic Standing] 98 H Respiratory Rate 18 18 Blood Pressure 145/70 H 127/61 Blood Pressure [Orthostatic Lying] 121/71 Blood Pressure [Orthostatic Sitting] 132/74 Blood Pressure [Orthostatic Standing] 146/77 H Pulse Oximetry 97 94 Oxygen Delivery Method Room Air Room Air 04/12/22 12:07 04/12/22 12:08 04/12/22 12:08 Temperature Pulse Rate 79 77 Pulse Rate [Orthostatic Lying] Pulse Rate [Orthostatic Sitting] Pulse Rate [Orthostatic Standing] Respiratory Rate Blood Pressure 122/62 Blood Pressure [Orthostatic Lying] Blood Pressure [Orthostatic Sitting] Blood Pressure [Orthostatic Standing] Pulse Oximetry 96 96 Oxygen Delivery Method 04/12/22 12:30 04/12/22 12:31 04/12/22 12:31 Temperature Pulse Rate 81 79 Pulse Rate [Orthostatic Lying] Pulse Rate [Orthostatic Sitting] Pulse Rate [Orthostatic Standing] Respiratory Rate Blood Pressure 138/74 Blood Pressure [Orthostatic Lying] Blood Pressure [Orthostatic Sitting] Blood Pressure [Orthostatic Standing] Pulse Oximetry 96 96 Oxygen Delivery Method 04/12/22 13:07 04/12/22 13:11 04/12/22 13:11 Temperature Pulse Rate 84 79 Pulse Rate [Orthostatic Lying] Pulse Rate [Orthostatic Sitting] Pulse Rate [Orthostatic Standing] Respiratory Rate Blood Pressure 121/71 Blood Pressure [Orthostatic Lying] Blood Pressure [Orthostatic Sitting] Blood Pressure [Orthostatic Standing] Pulse Oximetry 97 98 Oxygen Delivery Method 04/12/22 13:17 04/12/22 13:17 04/12/22 13:19 Temperature Pulse Rate 94 H 94 H Pulse Rate [Orthostatic Lying] Pulse Rate [Orthostatic Sitting] Pulse Rate [Orthostatic Standing] Respiratory Rate Blood Pressure 130/77 Blood Pressure [Orthostatic Lying] Blood Pressure [Orthostatic Sitting] Blood Pressure [Orthostatic Standing] Pulse Oximetry 98 97 Oxygen Delivery Method 04/12/22 13:19 04/12/22 13:30 04/12/22 13:30 Temperature Pulse Rate 83 Pulse Rate [Orthostatic Lying] Pulse Rate [Orthostatic Sitting] Pulse Rate [Orthostatic Standing] Respiratory Rate Blood Pressure 146/77 H 119/68 Blood Pressure [Orthostatic Lying] Blood Pressure [Orthostatic Sitting] Blood Pressure [Orthostatic Standing] Pulse Oximetry 97 Oxygen Delivery Method MDM - Dizziness Lab Data Result diagrams: 04/12/22 12:15 04/12/22 12:15 Labs: Lab Results 04/12/22 04/12/22 04/12/22 Range/Units 12:15 12:15 13:08 WBC 4.9 (4.5-11.0) X10^3/uL RBC 4.58 (4.0-5.2) X10^6/uL Hgb 13.8 (12.0-16.0) g/dL Hct 40.9 (36-46) % MCV 89.3 (80-100) fL MCH 30.1 (26-34) PG MCHC 33.7 (30-36) % RDW 12.8 (11.6-14.8) % Plt Count 228 (150-400) X10^3/uL Neut % (Auto) 72.6 (50-75) % Lymph % (Auto) 15.4 L (25-40) % Tripp % (Auto) 10.1 (3-14) % Eos % (Auto) 1.1 L (2-4) % Baso % (Auto) 0.8 (0-2) % Neut # (Auto) 3600 (6440-5101) /uL Lymph # (Auto) 800 L (1844-3976) /uL Tripp # (Auto) 500 (0-900) /uL Eos # (Auto) 100 (0-450) /uL Baso # (Auto) 0 (0-100) /uL Sodium 136 L (137-145) mmol/L Potassium 4.1 (3.4-5.1) mmol/L Chloride 106 (98-107) mmol/L Carbon Dioxide 24 (22-32) mmol/L BUN 13 (7-17) mg/dL Creatinine 0.87 (0.52-1.04) mg/dL Estimated GFR > 60 (>60) mL/min BUN/Creatinine Ratio 14.9 (6-22) Glucose 109 (80-110) mg/dL Calcium 9.0 (8.4-10.2) mg/dL Magnesium 2.2 (1.6-2.3) mg/dL Total Bilirubin 0.4 (0.2-1.3) mg/dL AST 23 (14-36) IU/L ALT 12 (<35) IU/L Alkaline Phosphatase 79 (38-126) U/L Total Creatine Kinase 49 (30-135) U/L CK-MB (CK-2) TNP CK-MB (CK-2) Rel Index TNP Troponin I < 0.012 (0.01-0.034) ng/mL Total Protein 6.9 (6.3-8.2) g/dL Albumin 4.1 (3.5-5.0) g/dL Globulin 2.8 (1.7-4.1) g/dL Albumin/Globulin Ratio 1.5 (1.0-2.8) Lipase 57 (23-300) U/L SARS-CoV-2 (PCR) Negative (Negative) Imaging Data Chest x-ray: Radiologist's Impression: [place] [address] CT Scan Report Signed Patient: Prachi Clark MR#: [id number] : 02/20/1923 Acct:[id number] Age/Sex: 89 / F Date of Service: 04/12/22 Loc: ED Accession Number: [id number] ?? Procedure: CT lumbar spine wo con Ordering Provider: Xenia Boudreaux D.O. PROCEDURE:? CT LUMBAR SPINE WO CON ? INDICATIONS:? low back/leg pain, happened after sat down hard ? TECHNIQUE:? Noncontrast 3 mm thick sections acquired from the T12 level to the sacrum.? Sagittal and coronal reformats were constructed.? For radiation dose reduction, the following was used:? automated exposure control.? ? COMPARISON:? [facility], , US PERIPH VENOUS LOW EXTREM RT, 04/12/2022, 11:45.? [facility], CT, CT PEL WO CON, 04/12/2022, 11:18. ? FINDINGS:? Image quality:? Excellent.? ? Bones:? No acute vertebral body compression fractures.? No suspicious lytic or blastic bony lesions.? No pars defects.? ? Moderate dextroconvex lumbar scoliosis is seen. ? Moderate to prominent degenerative changes are seen throughout.? At L4-L5 and L5-S1, at least moderate bilateral neural foraminal narrowing can be seen, with associated compression upon the exiting L4-L5 and L5-S1 nerve roots. ? Soft tissues:? No retroperitoneal masses or hematomas.? Visualized aorta is normal in caliber.? Atherosclerotic calcification is noted.? Cholecystectomy clips are seen.? Colonic diverticulosis is seen, without findings of active diverticulitis. ? ? IMPRESSION:? Negative for acute fracture. ? Moderate dextroconvex scoliosis. ? Degenerative changes are seen throughout, which are worst inferiorly. ? ? ? Incidental note is made of: Cholecystectomy Diverticulosis, without active diverticulitis ? ? Dictated by: Teodoro Multani M.D. on 04/12/2022 at 11:13 ? ? Approved by: Teodoro Multani M.D. on 04/12/2022 at 11:17?? CT scan - head: Radiologist's Impression: [place] [address] CT Scan Report Signed Patient: Jeannette Rahman MR#: [id number] : 1940 Acct:[id number] Age/Sex: 81 / F Date of Service: 04/12/22 Loc: ED Accession Number: [id number] ?? Procedure: CT head/brain wo con Ordering Provider: Xenia Boudreaux D.O. PROCEDURE:? CT HEAD/BRAIN WO CON ? INDICATIONS:? vertigo, lightheadedness ? TECHNIQUE:? Noncontrast 4.5 mm thick angled axial sections acquired from the foramen magnum to the vertex, with coronal and sagittal reformats.? For radiation dose reduction, the following was used:? automated exposure control, adjustment of mA and/or kV according to patient size.? ? COMPARISON:? None. ? FINDINGS:? Image quality:? Excellent.? ? CSF spaces:? Basal cisterns are patent.? No extra-axial fluid collections.? The ventricles are symmetric in size and shape.? ? Brain:? No intracranial bleeds or masses.? There is cerebral volume loss for age, with resultant ventricular and sulcal prominence.? There are periventricular and deep white matter chronic small vessel ischemic changes.? There is intracranial internal carotid artery atherosclerosis.? ? Skull and face:? Calvarium and visualized facial bones appear intact, without suspicious lesions.? ? Sinuses:? Visualized sinuses and mastoids are clear.? ? IMPRESSION:? 1. No CT evidence of acute intracranial abnormalities. 2. Mild atrophy and moderate white matter chronic small vessel ischemic changes.? ? ? Dictated by: Arnold Mazariegos M.D. on 04/12/2022 at 13:11 ? ? Approved by: Arnold Mazariegos M.D. on 04/12/2022 at 13:11? ECG Data Attestation: I personally reviewed and interpreted this ECG as follows: Prior ECG tracings: not available for review Interpretation: Sinus rhythm, rate 87, MI 162 QRS is 74 QTC 418. Q wave in 3, No acute ST cm ges. No priors for comparison. MDM Narrative Medical decision making narrative: This is a 81-year-old female with acute dizziness which is worsened with quick movements of her head, no acute neurologic changes NIH of 0. Head CT to rule out other causes is negative my suspicion for stroke is low today. Patient labs show no major abnormalities, troponin is negative, patient is COVID negative. Patient's symptoms are mild at this time. Was given prescription for meclizine, return precautions. Discharge Plan Departure Patient Disposition: Home Clinical Impression: Vertigo Instructions: DI for Vertigo Activity Restrictions/Additional Instructions: Follow-up with your physician recheck if your symptoms are persisting I would recommend follow-up with ENT, referral is included below. Please call for an appointment. You may take meclizine 1-2 tablets every 6 hours as needed for symptoms. [facility] in [place]. Please return for fevers, severe headaches, some vision changes, new numbness, tingling weakness, facial droop, in the mid ambulate safely, passing out, new chest pain or shortness of breath or other new or concerning symptoms. Prescriptions: New meclizine 25 mg tablet 25 mg PO QID PRN (Reason: dizziness) Qty: 20 0RF No Action trazodone 50 mg tablet See Rx Instructions .ROUTE .COMPLEX Qty: 180 0RF Dose Instruction: TAKE 2 TABLETS(100MG) BY MOUTH AT BEDTIME Rx Instructions: TAKE 2 TABLETS(100MG) BY MOUTH AT BEDTIME triamcinolone acetonide [Kenalog] 40 mg/mL suspension 80 mg intra-articular ONCE Qty: 2 0RF sertraline 50 mg tablet 50 mg PO DAILY Qty: 90 2RF simvastatin 20 mg tablet See Rx Instructions .ROUTE .COMPLEX Qty: 90 1RF Dose Instruction: Take one tablet by mouth at bedtime Rx Instructions: Take one tablet by mouth at bedtime Referrals: Megha Milligan MD [Primary Care Provider] - Preet Boyd MD [Physician] - Visit Report Forms: Patient Portal/API
--- NOTE | 2022-04-12 12:37 | DI.CT.S_ITS ---
PROCEDURE: CT HEAD/BRAIN WO CON INDICATIONS: vertigo, lightheadedness TECHNIQUE: Noncontrast 4.5 mm thick angled axial sections acquired from the foramen magnum to the vertex, with coronal and sagittal reformats. For radiation dose reduction, the following was used: automated exposure control, adjustment of mA and/or kV according to patient size. COMPARISON: None. FINDINGS: Image quality: Excellent. CSF spaces: Basal cisterns are patent. No extra-axial fluid collections. The ventricles are symmetric in size and shape. Brain: No intracranial bleeds or masses. There is cerebral volume loss for age, with resultant ventricular and sulcal prominence. There are periventricular and deep white matter chronic small vessel ischemic changes. There is intracranial internal carotid artery atherosclerosis. Skull and face: Calvarium and visualized facial bones appear intact, without suspicious lesions. Sinuses: Visualized sinuses and mastoids are clear. IMPRESSION: 1. No CT evidence of acute intracranial abnormalities. 2. Mild atrophy and moderate white matter chronic small vessel ischemic changes. Dictated by: Arnold Mazariegos M.D. on 04/12/2022 at 13:11 Approved by: Arnold Mazariegos M.D. on 04/12/2022 at 13:11
[2022-04-12] MEDS: MECLIZINE HCL 12.5 MG TABLET 25 MG PO (13:00)
[2022-04-12 13:20] LABS: Add Manual Diff / Slide Review NO; Basophils Absolute Auto 0 /uL (0-100); Basophils Percent Auto 0.8 % (0-2); Eosinophils Absolute Auto 100 /uL (0-450); Eosinophils Percent Auto 1.1 % (2-4); Hematocrit 40.9 % (36-46); Hemoglobin 13.8 g/dL (12.0-16.0); Lymphocytes Absolute Auto 800 /uL (1100-4500); Lymphocytes Percent Auto 15.4 % (25-40); Mean Corpuscular HGB Conc 33.7 % (30-36); Mean Corpuscular Hemoglobin 30.1 PG (26-34); Mean Corpuscular Volume 89.3 fL (80-100); Monocytes Absolute Auto 500 /uL (0-900); Monocytes Percent Auto 10.1 % (3-14); Neutrophils Absolute Auto 3600 /uL (1500-7000); Neutrophils Percent Auto 72.6 % (50-75); Platelet Count 228 X10^3/uL (150-400); Red Blood Cell Count 4.58 X10^6/uL (4.0-5.2); Red Cell Distribution Width 12.8 % (11.6-14.8); White Blood Cell Count 4.9 X10^3/uL (4.5-11.0)
[2022-04-12 13:33] LABS: Alanine Aminotransferase 12 IU/L (<35); Albumin 4.1 g/dL (3.5-5.0); Albumin Globulin Ratio 1.5 (1.0-2.8); Alkaline Phosphatase 79 U/L (38-126); Aspartate Aminotransferase 23 IU/L (14-36); BUN Creatinine Ratio 14.9 (6-22); Bilirubin Total 0.4 mg/dL (0.2-1.3); Blood Urea Nitrogen 13 mg/dL (7-17); Carbon Dioxide 24 mmol/L (22-32); Chloride 106 mmol/L (98-107); Creatine Kinase 49 U/L (30-135); Estimated Glomerular Filt Rate > 60 mL/min (>60); Globulin 2.8 g/dL (1.7-4.1); Glucose 109 mg/dL (80-110); HEMOLYSIS < 15 (0-50); Lipase 57 U/L (23-300); Magnesium 2.2 mg/dL (1.6-2.3); Potassium 4.1 mmol/L (3.4-5.1); Sodium 136 mmol/L (137-145); Total Protein 6.9 g/dL (6.3-8.2)
[2022-04-12 13:39] LABS: COVID19 -Nasal RAPID Negative (Negative)
[2022-04-12 13:44] LABS: Troponin I < 0.012 ng/mL (0.01-0.034)
== END 2022-04-12 14:00 | disposition home or self-care (01) ==
PROVIDERS: Emergency Provider Emergency Medicine; PCP Family Medicine
DX: R42 Dizziness and giddiness (principal); R07.9 Chest pain, unspecified; Z20.822 Contact with and (suspected) exposure to COVID-19
CPT/HCPCS: 36415; 70450; 71045; 80053; 82550; 83690; 83735; 84484; 85025; 87635; 93005; 93010; 99284; C9803

== ENCOUNTER 2022-10-17 15:13 | Emergency (ER) | payer OTHER, SELFPAY ==
[2022-10-17 15:20] VITALS: BP 195/90; PULSE 86; RESP 18; TEMP 36.3; O2SAT 95; BMI 28.9
--- NOTE | 2022-10-17 15:31 | DI.RAD.S_ITS ---
PROCEDURE: XR RIBS RT MIN 3V W CXR 1V INDICATIONS: Fall right rib injury pain TECHNIQUE: 2 views of the right ribs were acquired, along with a single view chest. COMPARISON: None. FINDINGS: Surgical changes and devices: None. Bones and chest wall: Mildly displaced fractures of the right 8th and 9th ribs. Lungs and pleura: Low lung volumes are prominent interstitium. No pleural effusions. Mediastinum: Mediastinal contours appear normal. Heart size is normal. IMPRESSION: Mildly displaced right lower rib fractures involving involving the 8th and 9th ribs. Prominent pulmonary interstitium can be seen with atypical infection or edema. Consider future imaging surveillance to assess for resolution. Dictated by: Mohamud Rothman M.D. on 10/17/2022 at 15:36 Approved by: Mohamud Rothman M.D. on 10/17/2022 at 15:37
--- NOTE | 2022-10-17 15:48 | ED_ITS ---
HPI - Fall <JEY Marie - Last Filed: 10/17/22 18:55> General Chief Complaint: Trauma Stated Complaint: Fall Time Seen by Provider: 10/17/22 15:43 Source: patient Mode of arrival: Ambulatory History of Present Illness HPI Narrative: This is an 82-year-old female who is not on anticoagulants who presents to the emergency department with her daughter after she had a fall today down 1 stair due to her cat in the way, and stumbled into a baby grand piano onto her right side. She denies hitting her head but complains of right-sided rib pain, denies shortness of breath, difficulty breathing, wheezing, chest pain, headache, or other abnormality. Patient's daughter states that she has complained of pain and been uncomfortable since her injury. Patient's daughter denies any head injury, loss of consciousness, change in behavior, change in breathing or new weakness. Patient denies any recent change in frequency of urination, cough, denies any illness or new symptoms recently.. Related Data Previous Rx's Medication Instructions Recorded sertraline 50 mg tablet 50 mg PO DAILY #90 tabs 01/20/22 meclizine 25 mg tablet 25 mg PO QID PRN dizziness #20 tabs 04/12/22 meloxicam 7.5 mg tablet 7.5 mg PO DAILY #90 tabs 06/29/22 simvastatin 20 mg tablet See Rx Instructions .Route 07/31/22 .COMPLEX #90 tabs erythromycin 5 mg/gram (0.5 %) eye 0.5 inch EYE-RIGHT QID Bacterial 08/22/22 ointment conjunctivitis #7 grams trazodone 100 mg tablet 100 mg PO BEDTIME PRN insomnia #90 09/23/22 tabs benzonatate 100 mg capsule 100 mg PO BID PRN cough #20 caps 10/05/22 hydrocodone 5 mg-acetaminophen 325 1 tab PO Q8H PRN pain #14 tabs 10/17/22 mg tablet lidocaine 5 % topical patch 1 patch topical Q12HR #30 ea 10/17/22 meloxicam 15 mg tablet 15 mg PO DAILY PRN pain #20 tabs 10/17/22 Allergies Allergy/AdvReac Type Severity Reaction Status Date / Time No Known Drug Allergies Allergy Verified 10/17/22 15:20 Review of Systems <JEY Marie - Last Filed: 10/17/22 18:55> Review of Systems ROS Unobtainable: All systems reviewed & are unremarkable except as noted in HPI and below Patient History <JEY Marie - Last Filed: 10/17/22 18:55> Medical History Abnormal mammogram Decreased glomerular filtration rate (GFR) (12/2021) Depression GERD (gastroesophageal reflux disease) (Unknown) Hyperlipidemia Osteoarthritis (Unknown) Pain in both knees Vertigo Surgical History Hx of cholecystectomy (Unknown) Family History Sister Cancer Social History Smoking Status: Never smoker second hand exposure: No alcohol intake: never substance use type: does not use Smoking Status: Never smoker Substance Use Type: does not use Exam <JEY Marie - Last Filed: 10/17/22 18:55> Narrative Exam Narrative: Reviewed vitals signs and nursing notes. General: cooperative, comfortable, without respiratory distress, well groomed sitting upright HEENT: symmetrical facial expressions, moist mucous membranes Cardiovascular: regular rate and rhythm, no peripheral edema, warm extremities, hypertensive, S1-S2 without additional sounds Respiratory: normal effort, able to speak in complete sentences, without wheezin g, stridor, or abnormal breath sounds. No retractions or tachypnea. Right lateral ribs 8 through 10 tender to palpation, without ecchymosis, crepitus, erythema, alone wound, asymmetrical chest rise or abnormal breath sound. GI: abdomen soft, nontender to palpation, nondistended, without masses, rebound tenderness or exquisite tenderness with exam. MSK: moves all extremities, neurovascularly intact, no weakness, normal tone Skin: brisk capillary refill, without pallor or erythema Neuro: normal speech and cognition, A&O x3, ambulatory, clear speech Psych: mental status is grossly normal, congruent mood, normal affect, pleasant and cooperative Initial Vital Signs Initial Vital Signs: Vital Signs Temperature 97.3 F L 10/17/22 15:20 Pulse Rate 86 10/17/22 15:20 Respiratory Rate 18 10/17/22 15:20 Blood Pressure 195/90 H 10/17/22 15:20 Pulse Oximetry 95 10/17/22 15:20 Oxygen Delivery Method 10/17/22 15:20 <Apolinar Morrison DO - Last Filed: 10/18/22 06:24> Initial Vital Signs Initial Vital Signs: Vital Signs Temperature 97.3 F L 10/17/22 15:20 Pulse Rate 86 10/17/22 15:20 Respiratory Rate 18 10/17/22 15:20 Blood Pressure 195/90 H 10/17/22 15:20 Pulse Oximetry 95 10/17/22 15:20 Oxygen Delivery Method 10/17/22 15:20 Course <JEY Marie - Last Filed: 10/17/22 18:55> Orders Ordered: Discontinued Medications Acetaminophen (Acetaminophen 325 Mg Tablet) 650 mg PO NOW ONE Stop: 10/17/22 15:54 Last Admin: 10/17/22 16:02 Dose: 650 mg Documented By: RL Ketorolac Tromethamine (Ketorolac 10 Mg Tablet) 10 mg PO NOW ONE Stop: 10/17/22 15:54 Last Admin: 10/17/22 16:02 Dose: 10 mg Documented By: RL Lidocaine (Lidocaine Patch 1 Each Adh..Patch) 1 each TOP NOW ONE Stop: 10/17/22 15:54 Last Admin: 10/17/22 16:02 Dose: 1 each Documented By: RL Lidocaine (Remove Lidocaine Patch) 1 each TOP BEDTIME TERRY Vital Signs Vital signs: Vital Signs - 8 hr 10/17/22 15:20 10/17/22 15:47 10/17/22 16:11 Temperature 97.3 F L Pulse Rate 86 Respiratory Rate 18 Blood Pressure 195/90 H Pulse Oximetry 95 98 Oxygen Delivery Method Room Air Room Air Room Air <Apolinar Morrison DO - Last Filed: 10/18/22 06:24> Orders Ordered: Discontinued Medications Acetaminophen (Acetaminophen 325 Mg Tablet) 650 mg PO NOW ONE Stop: 10/17/22 15:54 Last Admin: 10/17/22 16:02 Dose: 650 mg Documented By: RL Ketorolac Tromethamine (Ketorolac 10 Mg Tablet) 10 mg PO NOW ONE Stop: 10/17/22 15:54 Last Admin: 10/17/22 16:02 Dose: 10 mg Documented By: FRANCO Lidocaine (Lidocaine Patch 1 Each Adh..Patch) 1 each TOP NOW ONE Stop: 10/17/22 15:54 Last Admin: 10/17/22 16:02 Dose: 1 each Documented By: FRANCO Lidocaine (Remove Lidocaine Patch) 1 each TOP BEDTIME TERRY Vital Signs Vital signs: Vital Signs - 8 hr 10/17/22 15:20 10/17/22 15:47 10/17/22 16:11 Temperature 97.3 F L Pulse Rate 86 Respiratory Rate 18 Blood Pressure 195/90 H Pulse Oximetry 95 98 Oxygen Delivery Method Room Air Room Air Room Air MDM - Fall <Sera Swartz, CHECKERING MACHINE OPERATOR - Last Filed: 10/17/22 18:55> Lab Data Result diagrams: 10/17/22 17:05 10/17/22 18:10 Labs: Lab Results 10/17/22 10/17/22 Range/Units 17:05 18:10 WBC 9.3 (4.5-11.0) X10^3/uL RBC 4.74 (4.0-5.2) X10^6/uL Hgb 13.9 (12.0-16.0) g/dL Hct 41.4 (36-46) % MCV 87.2 (80-100) fL MCH 29.4 (26-34) PG MCHC 33.7 (30-36) % RDW 13.4 (11.6-14.8) % Plt Count 208 (150-400) X10^3/uL Neut % (Auto) 85.1 H (50-75) % Lymph % (Auto) 6.6 L (25-40) % [place] % (Auto) 7.4 (3-14) % Eos % (Auto) 0.3 L (2-4) % Baso % (Auto) 0.6 (0-2) % Neut # (Auto) 7900 H (4226-8350) /uL Lymph # (Auto) 600 L (9448-9702) /uL [place] # (Auto) 700 (0-900) /uL Eos # (Auto) 0 (0-450) /uL Baso # (Auto) 100 (0-100) /uL Sodium 138 (137-145) mmol/L Potassium 3.7 (3.4-5.1) mmol/L Chloride 103 (98-107) mmol/L Carbon Dioxide 24 (22-32) mmol/L BUN 13 (7-17) mg/dL Creatinine 0.69 (0.52-1.04) mg/dL Estimated GFR > 60 (>60) mL/min BUN/Creatinine Ratio 18.8 (6-22) Glucose 123 H (80-110) mg/dL Calcium 8.8 (8.4-10.2) mg/dL Total Bilirubin 0.2 (0.2-1.3) mg/dL AST 23 (14-36) IU/L ALT 18 (<35) IU/L Alkaline Phosphatase 117 (38-126) U/L Total Protein 6.7 (6.3-8.2) g/dL Albumin 3.9 (3.5-5.0) g/dL Globulin 2.8 (1.7-4.1) g/dL Albumin/Globulin Ratio 1.4 (1.0-2.8) Lipase 46 (23-300) U/L Imaging Data Chest x-ray: Radiologist's Impression: PROCEDURE:? XR RIBS RT MIN 3V W CXR 1V ? INDICATIONS:? Fall right rib injury pain ? TECHNIQUE:? 2 views of the right ribs were acquired, along with a single view chest.? ? COMPARISON:? None. ? FINDINGS:? ? Surgical changes and devices:? None.? ? Bones and chest wall:? Mildly displaced fractures of the right 8th and 9th ribs. ? Lungs and pleura:? Low lung volumes are prominent interstitium.? No pleural effusions. ? Mediastinum:? Mediastinal contours appear normal.? Heart size is normal.? ? IMPRESSION:? Mildly displaced right lower rib fractures involving involving the 8th and 9th ribs. Prominent pulmonary interstitium can be seen with atypical infection or edema.? Consider future imaging surveillance to assess for resolution. ? ? ? Dictated by: Mohamud Rothman M.D. on 10/17/2022 at 15:36 ? ? Approved by: Mohamud Rothman M.D. on 10/17/2022 at 15:37 ? CT Chest: Radiologist's Impression: PROCEDURE:? CT CHEST W CON ? INDICATIONS:? rt rib fractures, ? TECHNIQUE:? After the administration of intravenous contrast, 5 mm thick sections acquired from the pulmonary apices to the posterior costophrenic angles.? 1 mm axial lung, 5 mm thick coronal and sagittal reformats and 7 mm axial MIP were acquired.? For radiation dose reduction, the following was used:? automated exposure control, adjustment of mA and/or kV according to patient size.? ? COMPARISON:? None. ? FINDINGS:? Image quality:? Good ? Lungs and pleura:? Bibasilar opacities, also involving the lingula.? There is also linear atelectasis or scar in the inferior segment of the right upper lobe.? No pneumothorax.? There is only a trace right pleural effusion. ? Mediastinum, heart, and esophagus:? Small hiatal hernia and possible epiphrenic diverticulum.? Nonspecific thickening of the distal esophagus.? No pathologic adenopathy by size criteria.? Coronary calcifications are present. ? Chest wall and thyroid:? Overall unremarkable ? Upper abdomen:? Gallbladder is absent.? Partially seen upper abdominal structures are grossly unremarkable.? Subcentimeter lesions are too small to characterize. Colonic diverticula. ? Bones:? The lower ribs are not completely visualized.? Mildly displaced right 9th rib fracture.? There may be a buckle segmental component.? Mildly displaced right 10th and 11th rib fractures also present.? There is extrapleural fat stranding and hemorrhage.? Indeterminate small lucency in the T11 vertebral body.? This may be benign assuming patient does not have history of malignancy, for example a vertebral hemangioma ? IMPRESSION:? Mildly displaced right lower rib fractures with extrapleural hemorrhage. No pneumothorax.? Trace right pleural effusion.? The far lowest ribs are not visualized. ? Bilateral lung scarring/atelectasis, with mild basilar opacities that may represent aspiration. ? Other findings as above.? ? Dictated by: Mohamud Rothman M.D. on 10/17/2022 at 17:16 ? ? Approved by: Mohamud Rothman M.D. on 10/17/2022 at 17:23 ? MDM Narrative Medical decision making narrative: This is a 82-year-old female presents to the emergency department with right- sided rib pain after she had a mechanical fall down 1 stair over a cat into a baby urine piano on her right side complaining of rib pain. Chest x-ray shows to right-sided rib fractures, patient has tenderness over the sole region, I suspect a 3rd fracture based on exam. Without abnormal breath sounds but mildly diminished on the right, patient is without tachypnea, hypoxia, increased work of breathing are other symptoms. CT of her chest was obtained of patient is 82 years old, she does not have any respiratory symptoms or hypoxia at this time but concern for how she will do a home. She lives with her daughter and her extended family who care for her, she is in good health otherwise, is steady on her feet, without any other symptoms at this time. Chest CT shows displaced fractures of ribs 910 and 11 on the right lateral chest with extrapleural hemorrhage, no pneumothorax, trace right pleural effusion and bilateral lung scarring/atelectasis with mild basilar opacities that may represent aspiration. Patient does not have any crackles or rhonchi. Her lab work overall is unremarkable, she has follow-up scheduled with Dr. Patino in 2 weeks and understands to return to the emergency department for shortness of breath, worsening symptoms, weakness, altered mentation, productive cough, fever, chills, or difficulty getting around. She was provided pain control, recommend using a walker for safety, patient and her daughter endorse safety plan to discharge home and will return for any concerns. She did not have loss of consciousness, she denies new dizziness, weakness, incontinence, head injury. Patient is appropriate and amenable to discharge home. Vital signs are stable on repeat examination is unremarkable. Patient has been informed of results. Patient has been given strict return to ER precautions for any new or worsening symptoms. Patient understands to follow up closely with outpatient providers as instructed. Patient understands plan and agrees to discharge home. All questions and concerns answered at this time. <Apolinar Morrison, DO - Last Filed: 10/18/22 06:24> Lab Data Labs: Lab Results 10/17/22 10/17/22 Range/Units 17:05 18:10 WBC 9.3 (4.5-11.0) X10^3/uL RBC 4.74 (4.0-5.2) X10^6/uL Hgb 13.9 (12.0-16.0) g/dL Hct 41.4 (36-46) % MCV 87.2 (80-100) fL MCH 29.4 (26-34) PG MCHC 33.7 (30-36) % RDW 13.4 (11.6-14.8) % Plt Count 208 (150-400) X10^3/uL Neut % (Auto) 85.1 H (50-75) % Lymph % (Auto) 6.6 L (25-40) % [place] % (Auto) 7.4 (3-14) % Eos % (Auto) 0.3 L (2-4) % Baso % (Auto) 0.6 (0-2) % Neut # (Auto) 7900 H (9777-7060) /uL Lymph # (Auto) 600 L (1180-4711) /uL [place] # (Auto) 700 (0-900) /uL Eos # (Auto) 0 (0-450) /uL Baso # (Auto) 100 (0-100) /uL Sodium 138 (137-145) mmol/L Potassium 3.7 (3.4-5.1) mmol/L Chloride 103 (98-107) mmol/L Carbon Dioxide 24 (22-32) mmol/L BUN 13 (7-17) mg/dL Creatinine 0.69 (0.52-1.04) mg/dL Estimated GFR > 60 (>60) mL/min BUN/Creatinine Ratio 18.8 (6-22) Glucose 123 H (80-110) mg/dL Calcium 8.8 (8.4-10.2) mg/dL Total Bilirubin 0.2 (0.2-1.3) mg/dL AST 23 (14-36) IU/L ALT 18 (<35) IU/L Alkaline Phosphatase 117 (38-126) U/L Total Protein 6.7 (6.3-8.2) g/dL Albumin 3.9 (3.5-5.0) g/dL Globulin 2.8 (1.7-4.1) g/dL Albumin/Globulin Ratio 1.4 (1.0-2.8) Lipase 46 (23-300) U/L Discharge Plan Departure Patient Disposition: Home Clinical Impression: Pleural effusion on right Multiple rib fractures Qualifiers: Encounter type: initial encounter Fracture type: closed Laterality: right Qualified Code(s): S22.41XA - Multiple fractures of ribs, right side, initial encounter for closed fracture Instructions: How to Use an Incentive Spirometer, Rib Fracture Activity Restrictions/Additional Instructions: *You have been diagnosed with numerous right-sided rib fractures. I am sorry this is a painful injury for a few weeks.. Use your incentive spirometer to help prevent pneumonia. Use pain medication daily to allow for breathing exercises. Please stay hydrated, take a strong pain pill as needed. Use lidocaine patches or topical Voltaren gel for additional pain adjuncts. These can be painful for a few weeks, I am sorry. Please follow-up with Dr. Patino and ask for referral to physical therapy. Please come back if you have worsening shortness of breath, cough, fever, chills, or if you feel worse. Hope that you have a nice holiday. Please take all precautions at home to avoid a fall, if you have worsening sh ortness of breath, fatigue, productive cough, chills or fever please come back to the emergency department. *What to do: *Please continue to take your regular medications as directed. [ x] New medication prescriptions sent to your pharmacy: [facility] ] [ ] New medication written as a paper prescription [ ] No new medications given *Please follow up with your primary care provider in 2-3 days, call for an appointment. Let them know you were seen in the Emergency Department and that we asked that you be seen for follow-up. We will electronically transmit a record of today's note if your PCP is in our system *If you do not have a primary care provider please contact [phone] to establish care with one of the [facility] primary care providers. *Return to Emergency Department if you should have any new, worsening, or concerning symptoms, such as [fever greater than 101F, chills, worsening pain, persistent vomiting or other bothersome symptoms]. Prescriptions: New lidocaine 5 % adhesive patch,medicated 1 patch topical Q12HR Qty: 30 0RF Rx Instructions: leave on most painful area for up to 12 hrs hydrocodone-acetaminophen 5-325 mg tablet 1 tab PO Q8H PRN (Reason: pain) Qty: 14 0RF meloxicam 15 mg tablet 15 mg PO DAILY PRN (Reason: pain) Qty: 20 0RF Rx Instructions: with food and water No Action erythromycin 5 mg/gram (0.5 %) ointment 0.5 inch EYE-RIGHT QID Qty: 7 0RF benzonatate 100 mg capsule 100 mg PO BID PRN (Reason: cough) Qty: 20 0RF simvastatin 20 mg tablet See Rx Instructions .ROUTE .COMPLEX Qty: 90 1RF Dose Instruction: Take one tablet by mouth at bedtime Rx Instructions: Take one tablet by mouth at bedtime trazodone 100 mg tablet 100 mg PO BEDTIME PRN (Reason: insomnia) Qty: 90 0RF meloxicam 7.5 mg tablet 7.5 mg PO DAILY Qty: 90 1RF Rx Instructions: trial for 2 weeks for arthritic pain; continue if tolerated and helpful triamcinolone acetonide [Kenalog] 40 mg/mL suspension 80 mg intra-articular ONCE Qty: 2 0RF sertraline 50 mg tablet 50 mg PO DAILY Qty: 90 2RF meclizine 25 mg tablet 25 mg PO QID PRN (Reason: dizziness) Qty: 20 0RF Referrals: Miscellaneous,Doctor, MD [Primary Care Provider] - Patricia Patino DO [Physician] - Visit Report Forms: Patient Portal/API <Apolinar Morrison DO - Last Filed: 10/18/22 06:24> Cosign ED Attending Cosignature Attestation: I was immediately available in the department for consultation. This documentation has been reviewed and I agree with assessment and plan. Supervised by Apolinar Morrison DO
[2022-10-17] MEDS: KETOROLAC 10 MG TABLET PO (16:02)
[2022-10-17] MEDS: LIDOCAINE PATCH 1 EACH ADH..PATCH TOP (16:02)
[2022-10-17] MEDS: ACETAMINOPHEN 325 MG TABLET 650 MG PO (16:02)
[2022-10-17 16:11] VITALS: O2SAT 98
--- NOTE | 2022-10-17 16:48 | DI.CT.S_ITS ---
PROCEDURE: CT CHEST W CON INDICATIONS: rt rib fractures, TECHNIQUE: After the administration of intravenous contrast, 5 mm thick sections acquired from the pulmonary apices to the posterior costophrenic angles. 1 mm axial lung, 5 mm thick coronal and sagittal reformats and 7 mm axial MIP were acquired. For radiation dose reduction, the following was used: automated exposure control, adjustment of mA and/or kV according to patient size. COMPARISON: None. FINDINGS: Image quality: Good Lungs and pleura: Bibasilar opacities, also involving the lingula. There is also linear atelectasis or scar in the inferior segment of the right upper lobe. No pneumothorax. There is only a trace right pleural effusion. Mediastinum, heart, and esophagus: Small hiatal hernia and possible epiphrenic diverticulum. Nonspecific thickening of the distal esophagus. No pathologic adenopathy by size criteria. Coronary calcifications are present. Chest wall and thyroid: Overall unremarkable Upper abdomen: Gallbladder is absent. Partially seen upper abdominal structures are grossly unremarkable. Subcentimeter lesions are too small to characterize. Colonic diverticula. Bones: The lower ribs are not completely visualized. Mildly displaced right 9th rib fracture. There may be a buckle segmental component. Mildly displaced right 10th and 11th rib fractures also present. There is extrapleural fat stranding and hemorrhage. Indeterminate small lucency in the T11 vertebral body. This may be benign assuming patient does not have history of malignancy, for example a vertebral hemangioma IMPRESSION: Mildly displaced right lower rib fractures with extrapleural hemorrhage. No pneumothorax. Trace right pleural effusion. The far lowest ribs are not visualized. Bilateral lung scarring/atelectasis, with mild basilar opacities that may represent aspiration. Other findings as above. Dictated by: Mohamud Rothman M.D. on 10/17/2022 at 17:16 Approved by: Mohamud Rothman M.D. on 10/17/2022 at 17:23
[2022-10-17 17:16] LABS: Add Manual Diff / Slide Review NO; Basophils Absolute Auto 100 /uL (0-100); Basophils Percent Auto 0.6 % (0-2); Eosinophils Absolute Auto 0 /uL (0-450); Eosinophils Percent Auto 0.3 % (2-4); Hematocrit 41.4 % (36-46); Hemoglobin 13.9 g/dL (12.0-16.0); Lymphocytes Absolute Auto 600 /uL (1100-4500); Lymphocytes Percent Auto 6.6 % (25-40); Mean Corpuscular HGB Conc 33.7 % (30-36); Mean Corpuscular Hemoglobin 29.4 PG (26-34); Mean Corpuscular Volume 87.2 fL (80-100); Monocytes Absolute Auto 700 /uL (0-900); Monocytes Percent Auto 7.4 % (3-14); Neutrophils Absolute Auto 7900 /uL (1500-7000); Neutrophils Percent Auto 85.1 % (50-75); Platelet Count 208 X10^3/uL (150-400); Red Blood Cell Count 4.74 X10^6/uL (4.0-5.2); Red Cell Distribution Width 13.4 % (11.6-14.8); White Blood Cell Count 9.3 X10^3/uL (4.5-11.0)
[2022-10-17 18:40] VITALS: BP 176/79; PULSE 82; RESP 20; TEMP 36.8; O2SAT 94
[2022-10-17 18:54] LABS: Alanine Aminotransferase 18 IU/L (<35); Albumin 3.9 g/dL (3.5-5.0); Albumin Globulin Ratio 1.4 (1.0-2.8); Alkaline Phosphatase 117 U/L (38-126); Aspartate Aminotransferase 23 IU/L (14-36); BUN Creatinine Ratio 18.8 (6-22); Bilirubin Total 0.2 mg/dL (0.2-1.3); Blood Urea Nitrogen 13 mg/dL (7-17); Calcium 8.8 mg/dL (8.4-10.2); Carbon Dioxide 24 mmol/L (22-32); Chloride 103 mmol/L (98-107); Estimated Glomerular Filt Rate > 60 mL/min (>60); Globulin 2.8 g/dL (1.7-4.1); Glucose 123 mg/dL (80-110); HEMOLYSIS < 15 (0-50); Lipase 46 U/L (23-300); Potassium 3.7 mmol/L (3.4-5.1); Sodium 138 mmol/L (137-145); Total Protein 6.7 g/dL (6.3-8.2)
== END 2022-10-17 18:54 | disposition home or self-care (01) ==
PROVIDERS: Emergency Provider Nurse Practitioner Critical Care Medicine
DX: S22.41XA Multiple fractures of ribs, right side, initial encounter for closed fracture (principal); J90 Pleural effusion, not elsewhere classified; W10.9XXA Fall (on) (from) unspecified stairs and steps, initial encounter; Z79.899 Other long term (current) drug therapy
CPT/HCPCS: 36415; 71101; 71260; 80053; 83690; 85025; 99285; Q9967

== ENCOUNTER 2022-11-06 18:11 | Emergency (ER) | payer OTHER, SELFPAY ==
[2022-11-06 18:25] VITALS: BP 185/84; PULSE 102; RESP 16; TEMP 36.3; O2SAT 97; BMI 29.2
[2022-11-06] MEDS: ONDANSETRON 4 MG ODT PO (18:35)
--- NOTE | 2022-11-06 18:55 | DI.RAD.S_ITS ---
PROCEDURE: XR ACUTE ABDOMEN SERIES INDICATIONS: abd pain TECHNIQUE: One view chest and two views of the abdomen were acquired. COMPARISON: None. FINDINGS: Surgical changes and devices: None. Chest: Lungs are clear. Heart size is normal. No pleural effusions. No pneumoperitoneum. Abdomen: Bowel gas pattern is normal. No suspicious calcifications. Visualized solid organ contours appear normal. Bones: No suspicious bony lesions. IMPRESSION: No acute finding. Dictated by: Chava Spear M.D. on 11/06/2022 at 19:36 Approved by: Chava Spear M.D. on 11/06/2022 at 19:36
--- NOTE | 2022-11-06 19:11 | ED.NAVMDI ---
HPI - Nausea/Vomiting/Diarrhea General Chief complaint: Nausea/Vomiting/Diarrhea Stated complaint: fall, fx 3 ribs, still in pain, nausea Time Seen by Provider: 11/06/22 18:55 Source: patient and family Mode of arrival: Wheelchair Limitations: no limitations History of Present Illness HPI Narrative: Patient is an 82-year-old female who 3 weeks ago fell sustaining 3 rib fractures on the right side. She also states she was told that she had a bruised lung. She is not having any problems breathing but she followed up with her primary doctor who told her that she needed to cut back on her pain medication. She tried to do that today however she states the pain is just too much for her. She also states over the past couple days she is had problems going to the bathroom. She denies any fevers. No new symptoms from the fall. Related Data Previous Rx's Medication Instructions Recorded sertraline 50 mg tablet 50 mg PO DAILY #90 tabs 01/20/22 meclizine 25 mg tablet 25 mg PO QID PRN dizziness #20 tabs 04/12/22 simvastatin 20 mg tablet See Rx Instructions .Route 07/31/22 .COMPLEX #90 tabs erythromycin 5 mg/gram (0.5 %) eye 0.5 inch EYE-RIGHT QID Bacterial 08/22/22 ointment conjunctivitis #7 grams trazodone 100 mg tablet 100 mg PO BEDTIME PRN insomnia #90 09/23/22 tabs benzonatate 100 mg capsule 100 mg PO BID PRN cough #20 caps 10/05/22 hydrocodone 5 mg-acetaminophen 325 1 tab PO BEDTIME PRN pain #14 tabs 11/06/22 mg tablet meloxicam 7.5 mg tablet 7.5 mg PO DAILY #270 tabs 11/06/22 ondansetron 4 mg disintegrating 4 mg PO Q6H PRN nausea and 11/06/22 tablet vomiting #20 tabs Allergies Allergy/AdvReac Type Severity Reaction Status Date / Time No Known Drug Allergies Allergy Verified 11/06/22 09:00 Review of Systems Constitutional Constitutional: Reports system reviewed and no additional complaints, except as documented Cardiovascular Cardiovascular: Reports system reviewed and no additional complaints, except as documented Respiratory Respiratory: Reports system reviewed and no additional complaints, except as documented Gastrointestinal Gastrointestinal: Reports system reviewed and no additional complaints, except as documented Integumentary/Breasts Skin/Breast: Reports system reviewed and no additional complaints, except as documented Neurologic Neurologic: Reports system reviewed and no additional complaints, except as documented Hematologic/Lymphatic On Anticoagulants: No Patient History Medical History Abnormal mammogram Decreased glomerular filtration rate (GFR) (12/2021) Depression GERD (gastroesophageal reflux disease) (Unknown) Hyperlipidemia Osteoarthritis (Unknown) Pain in both knees Vertigo Surgical History Hx of cholecystectomy (Unknown) Family History Sister Cancer Social History Smoking Status: Never smoker second hand exposure: No alcohol intake: never substance use type: does not use Smoking Status: Never smoker Substance Use Type: does not use Exam Initial Vital Signs Initial Vital Signs: Vital Signs Temperature 97.3 F L 11/06/22 18:25 Pulse Rate 102 H 11/06/22 18:25 Respiratory Rate 16 11/06/22 18:25 Blood Pressure 185/84 H 11/06/22 18:25 Pulse Oximetry 97 11/06/22 18:25 Oxygen Delivery Method 11/06/22 18:25 HENCT Head: normal to inspection and normocephalic Chest Other: Tenderness or right-sided lower ribs. Resp Effort & Inspection: normal respiratory effort Auscultation: clear to auscultation bilaterally Cardio Rate: regular rate Skin Other: No bruising on the right side of chest Neuro General: patient alert, patient awake and moves all extremities Extrem General: normal to inspection and capillary refill normal Psych Appearance: well kempt Course Orders Ordered: ED Orders 11/06/22 18:55 XR acute abdomen series Stat Discontinued Medications Ondansetron HCl (Ondansetron 4 Mg Odt) 4 mg PO NOW ONE Stop: 11/06/22 18:31 Last Admin: 11/06/22 18:35 Dose: 4 mg Documented By: CTS Vital Signs Vital signs: Vital Signs - 8 hr 11/06/22 20:29 Pulse Rate 95 H Blood Pressure 184/90 H Pulse Oximetry 95 Oxygen Delivery Method Room Air MDM - Nausea/Vomiting/Diarrhea Imaging Data Abdominal x-ray: Radiologist's Impression: [address] [id number] XRay Report Signed Patient: Jeannette Rahman MR#: [id number] : 1940 Acct:[id number] Age/Sex: 82 / F Date of Service: 11/06/22 Loc: ED Accession Number: [id number] ?? Procedure: XR acute abdomen series Ordering Provider: Dariusz Lira D.O. PROCEDURE:? XR ACUTE ABDOMEN SERIES ? INDICATIONS:? abd pain ? TECHNIQUE:? One view chest and two views of the abdomen were acquired.? ? COMPARISON:? None. ? FINDINGS:? ? Surgical changes and devices:? None.? ? Chest:? Lungs are clear.? Heart size is normal.? No pleural effusions.? No pneumoperitoneum.? ? Abdomen:? Bowel gas pattern is normal.? No suspicious calcifications.? Visualized solid organ contours appear normal.? ? Bones:? No suspicious bony lesions.? ? IMPRESSION:? No acute finding. ? ? Dictated by: Chava Spear M.D. on 11/06/2022 at 19:36 ? ? Approved by: Chava Spear M.D. on 11/06/2022 at 19:36?? MDM Narrative Medical decision making narrative: X-rays today does not show any signs of pneumonia. She is not having any respiratory distress. There is no bruising over the right side of her chest. We did discuss the issues with being on pain medication in the problems that can be caused with constipation. She will start taking stool softeners and laxatives as needed. Did inform her that she has only been 3 weeks since her injury and that her ribs are still healing. I agreed that she should try to cut back on the opioid pain medication as much as possible however she still needs to take it in order to avoid developing a pneumonia that she could do that. We discussed other things that she could try to include continue with her meloxicam and also using Tylenol. Will hold on further workup for now and will discharge patient home with strict return precautions. She expressed understanding and agreement. Daughter was at bedside for discussions. Discharge Plan Departure Patient Disposition: Home Clinical Impression: Rib pain on right side Instructions: DI for Rib Fracture Activity Restrictions/Additional Instructions: Use the nausea medication as needed. Also recommend that you start on a good bowel regimen in order to avoid worsening of the constipation. Your symptoms should improve within the next several days or week. You can take the Mobic and the hydrocodone as directed. Return to the emergency department for any worsening symptoms. Prescriptions: New ondansetron 4 mg tablet,disintegrating 4 mg PO Q6H PRN (Reason: nausea and vomiting) Qty: 20 0RF No Action erythromycin 5 mg/gram (0.5 %) ointment 0.5 inch EYE-RIGHT QID Qty: 7 0RF benzonatate 100 mg capsule 100 mg PO BID PRN (Reason: cough) Qty: 20 0RF simvastatin 20 mg tablet See Rx Instructions .ROUTE .COMPLEX Qty: 90 1RF Dose Instruction: Take one tablet by mouth at bedtime Rx Instructions: Take one tablet by mouth at bedtime trazodone 100 mg tablet 100 mg PO BEDTIME PRN (Reason: insomnia) Qty: 90 0RF meloxicam 7.5 mg tablet 7.5 mg PO DAILY Qty: 270 1RF Hold Instructions: taking higher dose for rib pain Rx Instructions: 1-2 tabs with food in the morning, 1 tab with dinner hydrocodone-acetaminophen 5-325 mg tablet 1 tab PO BEDTIME PRN (Reason: pain) Qty: 14 0RF triamcinolone acetonide [Kenalog] 40 mg/mL suspension 80 mg intra-articular ONCE Qty: 2 0RF sertraline 50 mg tablet 50 mg PO DAILY Qty: 90 2RF meclizine 25 mg tablet 25 mg PO QID PRN (Reason: dizziness) Qty: 20 0RF Referrals: Patricia Patino DO [Primary Care Provider] - Stand Alone Forms: Patient Portal/API
[2022-11-06 20:29] VITALS: BP 184/90; PULSE 95; O2SAT 95
== END 2022-11-06 20:29 | disposition home or self-care (01) ==
PROVIDERS: Emergency Provider Emergency Medicine; PCP Family Medicine; Referring Provider Family Medicine
DX: R07.81 Pleurodynia (principal)
CPT/HCPCS: 74022; 99283

== ENCOUNTER 2022-11-10 10:56 | Observation (INO) | payer OTHER, SELFPAY ==
[2022-11-10] VITALS (9 sets, daily range): BP systolic 154–198; BP diastolic 69–88; PULSE 92–107; RESP 16–19; TEMP 36.5–37; O2SAT 90–95; BMI 29.2
--- NOTE | 2022-11-10 | DI.CT.S_ITS ---
PROCEDURE: CT CHEST WO CON INDICATIONS: RECENT RIB FRACTURE TECHNIQUE: Noncontrast 5 mm thick sections acquired from the pulmonary apices to the posterior costophrenic angles. 1 mm lung window, 5 mm thick coronal and sagittal and 7 mm axial MIP reformats were then acquired. For radiation dose reduction, the following was used: automated exposure control, adjustment of mA and/or kV according to patient size. COMPARISON: Merged With [facility], CT, CT CHEST W CON, 10/17/2022, 17:35. FINDINGS: Image quality: Excellent. Lungs and pleura: Small to moderate right pleural effusion is seen with atelectasis of the right lower lobe. There is also mild dependent atelectasis in the left lung. No pneumothorax. Central and peripheral airways are patent and normal in caliber. Mediastinum: Heart size is normal. No pericardial effusion. No mediastinal adenopathy by size criteria. Thoracic aorta and central pulmonary arteries are normal in size. Mild aortic atherosclerotic calcifications. Esophagus is normal in caliber. Small hiatal hernia. Bones and chest wall: Mildly displaced fractures again seen involving the posterior right 9th, 10th, and 11th ribs. Nondisplaced fractures at the anterior to lateral right 4th through 8th ribs are also seen that are more prominent when compared to the prior exam due to healing changes. Mild dextroconvex curvature of the spine. No suspicious bony lesions. No vertebral body compression fractures. No axillary or supraclavicular adenopathy by size criteria. Thyroid is unremarkable. Abdomen: Status post cholecystectomy. Diverticula are seen in the colon. Contrast material is noted in the renal collecting system. IMPRESSION: 1. Multiple mildly displaced right-sided rib fractures involving the 4th through 11th ribs with mild healing changes. 2. Small to moderate right pleural effusion with atelectasis of the right lung base has significantly increased when compared to the CT from 10/17/2022. No pneumothorax. Approved by: Constantin March M.D. on 11/10/2022 at 17:16
[2022-11-10] MEDS: ONDANSETRON 4 MG/2 ML INJ IV ×2 (11:41→18:35)
[2022-11-10 11:48] LABS: Add Manual Diff / Slide Review NO; Basophils Absolute Auto 0 /uL (0-100); Basophils Percent Auto 0.7 % (0-2); Eosinophils Absolute Auto 200 /uL (0-450); Eosinophils Percent Auto 2.4 % (2-4); Hematocrit 38.9 % (36-46); Hemoglobin 12.6 g/dL (12.0-16.0); Lymphocytes Absolute Auto 800 /uL (1100-4500); Lymphocytes Percent Auto 10.9 % (25-40); Mean Corpuscular HGB Conc 32.4 % (30-36); Mean Corpuscular Hemoglobin 28.7 PG (26-34); Mean Corpuscular Volume 88.5 fL (80-100); Monocytes Absolute Auto 700 /uL (0-900); Monocytes Percent Auto 9.6 % (3-14); Neutrophils Absolute Auto 5400 /uL (1500-7000); Neutrophils Percent Auto 76.4 % (50-75); Platelet Count 346 X10^3/uL (150-400); Red Cell Distribution Width 14.1 % (11.6-14.8); White Blood Cell Count 7.1 X10^3/uL (4.5-11.0)
[2022-11-10 12:08] LABS: Alanine Aminotransferase 11 IU/L (<35); Albumin 3.8 g/dL (3.5-5.0); Albumin Globulin Ratio 1.2 (1.0-2.8); Alkaline Phosphatase 114 U/L (38-126); Aspartate Aminotransferase 20 IU/L (14-36); BUN Creatinine Ratio 19.7 (6-22); Bilirubin Total 0.3 mg/dL (0.2-1.3); Blood Urea Nitrogen 14 mg/dL (7-17); Calcium 9.6 mg/dL (8.4-10.2); Carbon Dioxide 31 mmol/L (22-32); Chloride 99 mmol/L (98-107); Estimated Glomerular Filt Rate > 60 mL/min (>60); Globulin 3.2 g/dL (1.7-4.1); Glucose 111 mg/dL (80-110); HEMOLYSIS < 15 (0-50); Lipase 42 U/L (23-300); Potassium 4.4 mmol/L (3.4-5.1); Sodium 137 mmol/L (137-145)
[2022-11-10 15:21] LABS: Appearance Urine UA CLOUDY; Bilirubin Urine UA NEGATIVE (NEGATIVE); Color Urine UA YELLOW; Culture Indicated Urine Specimen Cultured; Glucose Urine UA NEGATIVE (Negative); Ketones Urine UA 1+ (NEGATIVE); Leukocyte Esterase Urine UA TRACE (NEGATIVE); Nitrite Urine UA POSITIVE (Negative); Occult Blood Urine UA 3+ (Negative); Protein Urine UA TRACE (Negative); Urobilinogen Urine UA 0.2 E.U./dL (0.2); pH Urine UA 5.5 (4.5-8.0)
[2022-11-10] MEDS: METOCLOPRAMIDE 10 MG/2 ML INJ IV (15:29)
[2022-11-10 15:30] LABS: Amorphous Sediment Urine 1+; Bacteria Urine Many (>30); Mucus Urine 2+ (Negative); RBC Urine 5-10/HPF (0-5/HPF); Squamous Epithelial Cell Urine 0-1 /HPF (0-5/HPF); WBC Urine 5-10/HPF (0-5/HPF)
[2022-11-10] MEDS: LACTATED RINGERS 1,000 ML 1000 ML IV (15:30)
--- NOTE | 2022-11-10 15:56 | ED_ITS ---
HPI - Nausea/Vomiting/Diarrhea General Chief complaint: Nausea/Vomiting/Diarrhea Stated complaint: incredible nausea, since 2017, seen here on Wednesday Time Seen by Provider: 11/10/22 14:43 Source: patient Mode of arrival: Wheelchair History of Present Illness HPI Narrative: 82-year-old female presenting with persistent nausea, vomiting, and loose stools. Patient reports that symptoms have been present for 2-3 weeks, has been evaluated multiple times in the outpatient setting, recently diagnosed with right-sided rib fractures, has been imaged multiple times to confirm that there is no complication from rib fractures. Patient has pain localized to the right anterior lateral chest wall and upper abdomen. Patient and family member at bedside concern for possible medication effect, patient is actively using pain medications as prescribed. Patient reports feeling generally unwell, having persistent nausea and vomiting with loose stools, this has not been a problem for the patient in the past. Related Data Previous Rx's Medication Instructions Recorded sertraline 50 mg tablet 50 mg PO DAILY #90 tabs 01/20/22 meclizine 25 mg tablet 25 mg PO QID PRN dizziness #20 tabs 04/12/22 simvastatin 20 mg tablet See Rx Instructions .Route 07/31/22 .COMPLEX #90 tabs trazodone 100 mg tablet 100 mg PO BEDTIME PRN insomnia #90 09/23/22 tabs benzonatate 100 mg capsule 100 mg PO BID PRN cough #20 caps 10/05/22 metoclopramide HCl 10 mg tablet 10 mg PO Q6H PRN nausea and 11/11/22 (Reglan) vomiting #30 tabs oxycodone 5 mg tablet 5 mg PO Q4HR PRN Pain, Moderate 11/11/22 (4-6) #20 tabs pantoprazole 40 mg tablet,delayed 40 mg PO 0700,2100 30 days #60 tabs 11/11/22 release Allergies Allergy/AdvReac Type Severity Reaction Status Date / Time No Known Drug Allergies Allergy Verified 11/10/22 11:36 Patient History Medical History Abnormal mammogram Decreased glomerular filtration rate (GFR) (12/2021) Depression GERD (gastroesophageal reflux disease) (Unknown) Hyperlipidemia Osteoarthritis (Unknown) Pain in both knees Vertigo Surgical History Hx of cholecystectomy (Unknown) Family History Sister Cancer Social History household members: family Smoking Status: Never smoker second hand exposure: No alcohol intake: never substance use type: does not use Smoking Status: Never smoker Substance Use Type: does not use Exam Narrative Exam Narrative: Vitals reviewed. Nursing note reviewed Constitutional: interactive HENT: Moist mucous membranes EYES: No scleral icterus NECK: no masses CV: Well perfused peripherally, no cyanosis present PULM: Unlabored respirations, symmetric chest rise ABD: Non-distended, mild tenderness diffusely in the upper quadrants of the abd omen MS: No gross deformities, no asymmetric edema noted SKIN: Warm and dry. PSYCH: Appropriate affect NEURO: Follows simple commands, moves extremities, interactive with exam Initial Vital Signs Initial Vital Signs: Vital Signs Temperature 97.7 F 11/10/22 11:36 Pulse Rate 102 H 11/10/22 11:36 Respiratory Rate 16 11/10/22 11:36 Blood Pressure 189/88 H 11/10/22 11:36 Pulse Oximetry 95 11/10/22 11:36 Oxygen Delivery Method 11/10/22 11:36 Course Orders Ordered: Discontinued Medications Acetaminophen (Acetaminophen 325 Mg Tablet) 650 mg PO Q6H PRN PRN Reason: Fever/Mild Pain (1-3) Benzonatate (Benzonatate 100 Mg Capsule) 100 mg PO BID PRN PRN Reason: cough Enoxaparin Sodium (Enoxaparin 40 Mg/0.4 Ml Syringe) 40 mg SUBCUT DAILY [facility] Last Admin: 11/11/22 10:25 Dose: 40 mg Documented By: CLL Hydromorphone HCl (Hydromorphone 0.5 Mg Inj) 0.5 mg IV Q4H PRN PRN Reason: Pain, Moderate (4-6) Lactated Ringer's (Lactated Ringers) 1,000 mls @ 1,000 mls/hr IV BOLUS ONE Stop: 11/10/22 15:56 Last Infusion: 11/10/22 16:39 Dose: 0 mls/hr Documented By: Admin: 11/10/22 15:30 Dose: 1,000 mls/hr Documented By: NR Sodium Chloride (Normal Saline 0.9%) 1,000 mls @ 1,000 mls/hr IV BOLUS PRN PRN Reason: Fluid replacement Ceftriaxone Sodium 1,000 mg/ (Sodium Chloride) 100 mls @ 200 mls/hr IV Q24H [facility] Stop: 11/13/22 17:59 Last Infusion: 11/10/22 21:09 Dose: 0 mls/hr Documented By: Admin: 11/10/22 20:39 Dose: 200 mls/hr Documented By: TAWNYA Sodium Chloride (Normal Saline 0.9%) 1,000 mls @ 150 mls/hr IV CONT TERRY Stop: 11/11/22 05:59 Last Infusion: 11/11/22 10:18 Dose: 0 mls/hr Documented By: Infusion: 11/11/22 01:52 Dose: 150 mls/hr Documented By: Admin: 11/11/22 01:52 Dose: 150 mls/hr Documented By: Infusion: 11/11/22 01:14 Dose: 150 mls/hr Documented By: Admin: 11/10/22 18:33 Dose: 150 mls/hr Documented By: SHADE Magnesium Sulfate (Magnesium Sulfate) 2 gm in 50 mls @ 25 mls/hr IV NOW ONE Stop: 11/11/22 11:17 Last Admin: 11/11/22 10:25 Dose: 25 mls/hr Documented By: RL Co-signed By: OCTAVIO Meclizine HCl (Meclizine Hcl 12.5 Mg Tablet) 25 mg PO QID PRN PRN Reason: dizziness Melatonin (Melatonin 3 Mg Tablet) 6 mg PO BEDTIME PRN PRN Reason: Insomnia Metoclopramide HCl (Metoclopramide 10 Mg/2 Ml Inj) 10 mg IV NOW ONE Stop: 11/10/22 15:11 Last Admin: 11/10/22 15:29 Dose: 10 mg Documented By: JOSEPHINE Metoclopramide HCl (Metoclopramide 10 Mg/2 Ml Inj) 10 mg IV Q6HR PRN PRN Reason: Nausea And Vomiting Naloxone HCl (Naloxone 0.4 Mg/Ml Vial) 0.2 mg IV Q2MIN PRN PRN Reason: Opiate Reversal Ondansetron HCl (Ondansetron 4 Mg/2 Ml Inj) 4 mg IV NOW PRN PRN Reason: Nausea And Vomiting Last Admin: 11/10/22 11:41 Dose: 4 mg Documented By: ELISHA Ondansetron HCl (Ondansetron 4 Mg/2 Ml Inj) 4 mg IV Q6HR [facility] Last Admin: 11/11/22 13:09 Dose: Not Given Documented By: Admin: 11/11/22 05:29 Dose: Not Given Documented By: Admin: 11/11/22 00:41 Dose: Not Given Documented By: Admin: 11/10/22 18:35 Dose: 4 mg Documented By: SHADE Oxycodone HCl (Oxycodone Ir 5 Mg Tablet) 5 mg PO Q4HR PRN PRN Reason: Pain, Moderate (4-6) Last Admin: 11/10/22 18:49 Dose: 5 mg Documented By: EM Oxycodone HCl (Oxycodone Ir 10 Mg Tablet) 10 mg PO Q4HR PRN PRN Reason: Pain, Severe (7-10) Pantoprazole Sodium (Pantoprazole 40 Mg Vial) 40 mg IV BID [facility] Last Admin: 11/11/22 11:06 Dose: Not Given Documented By: Admin: 11/10/22 20:37 Dose: 40 mg Documented By: Admin: 11/10/22 18:34 Dose: 40 mg Documented By: SHADE Pantoprazole Sodium (Pantoprazole Dr 40 Mg Tablet) 40 mg PO 0700,2100 [facility] Last Admin: 11/11/22 10:25 Dose: 40 mg Documented By: RL Polyethylene Glycol (Polyethylene Glycol 3350 17 Gm Powd.Pack) 17 gm PO DAILY [facility] Last Admin: 11/11/22 10:28 Dose: Not Given Documented By: RL Potassium Chloride (Potassium Chloride 20 Meq Tab) 40 meq PO NOW ONE Stop: 11/11/22 08:37 Last Admin: 11/11/22 10:27 Dose: 40 meq Documented By: RL Sennosides (Sennosides 8.6 Mg Tablet) 8.6 mg PO BID [facility] Last Admin: 11/11/22 10:25 Dose: 8.6 mg Documented By: Admin: 11/10/22 20:38 Dose: 8.6 mg Documented By: Admin: 11/10/22 18:39 Dose: 8.6 mg Documented By: SHADE Trazodone HCl (Trazodone 100 Mg Tablet) 100 mg PO BEDTIME PRN PRN Reason: insomnia Vital Signs Vital signs: Vital Signs - 8 hr 11/10/22 11:36 11/10/22 13:13 11/10/22 15:00 Temperature 97.7 F Pulse Rate 102 H 98 H Respiratory Rate 16 Blood Pressure 189/88 H 166/81 H 177/81 H Pulse Oximetry 95 93 Oxygen Delivery Method Room Air Room Air 11/10/22 15:00 11/10/22 15:14 11/10/22 15:14 Temperature Pulse Rate 105 H 102 H Respiratory Rate Blood Pressure 171/79 H Pulse Oximetry 93 95 Oxygen Delivery Method 11/10/22 15:30 11/10/22 15:30 11/10/22 16:00 Temperature Pulse Rate 98 H Respiratory Rate Blood Pressure 154/72 H 173/84 H Pulse Oximetry 92 Oxygen Delivery Method 11/10/22 16:00 11/10/22 16:31 Temperature Pulse Rate 98 H 102 H Respiratory Rate Blood Pressure Pulse Oximetry 93 90 L Oxygen Delivery Method MDM - Nausea/Vomiting/Diarrhea Lab Data Result diagrams: 11/11/22 06:17 11/11/22 06:17 Labs: Lab Results 11/10/22 11/10/22 11/10/22 Range/Units 11:40 11:40 15:13 WBC 7.1 (4.5-11.0) X10^3/uL RBC 4.40 (4.0-5.2) X10^6/uL Hgb 12.6 (12.0-16.0) g/dL Hct 38.9 (36-46) % MCV 88.5 (80-100) fL MCH 28.7 (26-34) PG MCHC 32.4 (30-36) % RDW 14.1 (11.6-14.8) % Plt Count 346 (150-400) X10^3/uL Neut % (Auto) 76.4 H (50-75) % Lymph % (Auto) 10.9 L (25-40) % [place] % (Auto) 9.6 (3-14) % Eos % (Auto) 2.4 (2-4) % Baso % (Auto) 0.7 (0-2) % Neut # (Auto) 5400 (6811-4244) /uL Lymph # (Auto) 800 L (9428-3485) /uL [place] # (Auto) 700 (0-900) /uL Eos # (Auto) 200 (0-450) /uL Baso # (Auto) 0 (0-100) /uL Sodium 137 (137-145) mmol/L Potassium 4.4 (3.4-5.1) mmol/L Chloride 99 (98-107) mmol/L Carbon Dioxide 31 (22-32) mmol/L BUN 14 (7-17) mg/dL Creatinine 0.71 (0.52-1.04) mg/dL Estimated GFR > 60 (>60) mL/min BUN/Creatinine Ratio 19.7 (6-22) Glucose 111 H (80-110) mg/dL Calcium 9.6 (8.4-10.2) mg/dL Total Bilirubin 0.3 (0.2-1.3) mg/dL AST 20 (14-36) IU/L ALT 11 (<35) IU/L Alkaline Phosphatase 114 (38-126) U/L Total Protein 7.0 (6.3-8.2) g/dL Albumin 3.8 (3.5-5.0) g/dL Globulin 3.2 (1.7-4.1) g/dL Albumin/Globulin Ratio 1.2 (1.0-2.8) Lipase 42 (23-300) U/L Urine Color Yellow Urine Appearance Cloudy Urine pH 5.5 (4.5-8.0) Ur Specific [place] 1.020 (1.000-1.035) Urine Protein Trace H (Negative) Urine Glucose (UA) Negative (Negative) g/dL Urine Ketones 1+ H (NEGATIVE) Urine Occult Blood 3+ H (Negative) Urine Nitrate Positive H (Negative) Urine Bilirubin Negative (NEGATIVE) Urine Urobilinogen 0.2 (0.2) E.U./dL Ur Leukocyte Esterase Trace H (NEGATIVE) Urine RBC 5-10/hpf H (0-5/HPF) Urine WBC 5-10/hpf H (0-5/HPF) Ur Squamous Epith Cells 0-1 /hpf (0-5/HPF) Amorphous Sediment 1+ Urine Bacteria Many (>30) H (None) Urine Mucus 2+ H (Negative) Ur Culture Indicated? Specimen cultured Urine Dip Bedside Urine Glucose Negative Bedside Urine Bilirubin - Negative Bedside Urine Ketone + 15 Urine Specific [place] 1.020 Bedside Urine Occult Blood +++ Bedside Urine pH 6.0 Bedside Urine Protein - Negative Bedside Urine Urobilinogen - Negative Bedside Urine Nitrite + Positive Bedside Urine Leukocytes - Negative Esterase MDM Narrative Medical decision making narrative: 82-year-old female presenting with persistent nausea, vomiting, and loose stools over the last several weeks in the setting of recently diagnosed right-sided rib fractures. Patient has been evaluated multiple times for these symptoms. Vital signs on presentation notable for hypertension and otherwise reassuring. Physical exam notable for alert interactive 82-year-old female who is in no acute distress, reassuring cardiopulmonary exam, abdominal exam mild tenderness to palpation. Initial concern for medication effect, viral syndrome, electrolyte abnormality, protein calorie malnutrition, acute intra-abdominal pathology including biliary pathology, pancreatitis, gastritis. Broad screening labs obtained given patient's report of persistent nausea and vomiting, these are notable for no significant electrolyte abnormalities. Patient was treated symptomatically as above. On repeat evaluation, patient without significant improvement in symptoms. Given persistent abdominal discomfort, nausea, vomiting, CT imaging of the abdomen was obtained to further evaluate for alternative intra-abdominal pathology notable for inflammation in the upper small bowel and pancreatic head concerning for duodenitis versus pancreatitis. Patient's lipase is normal arguing against acute pancreatitis. Discussed findings with patient and family member at bedside. Discussed findings with general surgery service, agreed to consult on patient for possible endoscopy pending clinical course. Discussed case with inpatient medicine team who agreed with plan for admission facilitate further management. Discharge Plan Departure Patient Disposition: Admitted As Inpatient Clinical Impression: Duodenitis Admit Date/Time: 11/10/22 17:16 Admit Provider: Naman Silva
--- NOTE | 2022-11-10 15:59 | DI.CT.S_ITS ---
PROCEDURE: CT ABDOMEN PELVIS W CON INDICATIONS: n/v, known recent rib fractures TECHNIQUE: After the administration of IV contrast, axial sections were acquired from the lung bases to the pubic symphysis. Coronal and sagittal reformats were performed. For radiation dose reduction, the following was used: automated exposure control, adjustment of mA and/or kV according to patient size. COMPARISON: [facility], CT, CT ABDOMEN PELVIS WO/W CON, 09/02/2018, 8:33. [facility], CT, CT CHEST W CON, 10/17/2022, 17:35. FINDINGS: Image quality: Excellent. Lung bases: Small to moderate right pleural effusion. Right basilar opacity which has the appearance of compressive atelectasis. No left pleural effusion. Please see separately dictated same day CT chest. Right posterior 9-11th rib fractures. Heart: Trace pericardial fluid. Coronary artery calcifications. ABDOMEN: Liver: Small cysts. Gallbladder: Absent. Biliary ducts: Unremarkable. Pancreas: Stranding at the head of the pancreas. No loculated peripancreatic fluid collection. No pancreatic necrosis identified. Spleen: Unremarkable. Adrenal Glands: Unremarkable. Kidneys and Ureters: No hydronephrosis. Multiple left in a few right peripelvic cysts which appears similar. Stomach and Bowel: Stomach is not distended. There is thickening and stranding about the 2nd portion of the duodenum. Small duodenal diverticulum. Diverticulosis. No diverticulitis. Normal appendix. Peritoneum: Trace free fluid near the duodenum. No ascites. No pneumoperitoneum. Ventral Wall: Small umbilical hernia. Abdominal Nodes: No retroperitoneal or mesenteric adenopathy by size criteria. Vessels: Aorta and inferior vena cava are normal in size. Moderate calcified plaque. PELVIS: Pelvic Organs: Anteverted uterus. Calcified fibroid suspected. Bladder: No stone. Pelvic Nodes: No enlarged lymph nodes. Miscellaneous: No inguinal hernias are seen. Bones: No suspicious lesions. Right-sided rib fractures as described above. Scoliosis. No compression fracture. Multilevel DDD. IMPRESSION: 1. Inflammatory change about the duodenum and pancreatic head. Findings most consistent with acute interstitial edematous pancreatitis or duodenitis. No loculated fluid collection. 2. Post cholecystectomy. Diverticulosis. 3. Right pleural effusion, increased. Right basilar opacity. Right 9-11th rib fractures. Comment: Findings were discussed with TODD Yen at time of dictation. Dictated by: Rakan Antony M.D. on 11/10/2022 at 16:39 Approved by: Rakan Antony M.D. on 11/10/2022 at 16:52
[2022-11-10 17:54] LABS: COVID19 -Nasal RAPID Negative (Negative)
--- NOTE | 2022-11-10 18:04 | P.HP_ITS ---
History of Present Illness History of Present Illness Date Patient Seen: 11/10/22 Chief complaint: incredible nausea, since 2016, seen here on Wednesday Narrative: Jeannette kahn is an 82-year-old female with past medical history of recent fall resulting in right ribs 4-11 fractures, depression, GERD, HLD and insomnia who presents with intractable NV and right rib pain. Patient tripped over her cat on 11/06 and fell onto a baby grand piano on her right side and had immediate pain. Seen in our ED the same day and had a chest CT which confirmed the fractures and sent home with some pain meds. She has been taking 1 norco nightly. Since then she has developed severe NV and unable to keep anything down. Hasn't eaten in several days due to this. The SL zofran given by ED did nothing. Also notes generalized abd pain but no epigastric pain particularly. Has been taking Mobic for over a month. Has a history of GERD but hasn't been on a PPI. Does not have a gallbladder. Currently her right rib pain is 8/10. Denies headache, CP, or diarrhea. Patient History Medical History Abnormal mammogram Decreased glomerular filtration rate (GFR) (12/2021) Depression GERD (gastroesophageal reflux disease) (Unknown) Hyperlipidemia Osteoarthritis (Unknown) Pain in both knees Vertigo Surgical History Hx of cholecystectomy (Unknown) Family & Social History Family History Sister Cancer Safety & Behavioral: Feels Safe in Current Yes Environment Been Physically Hurt or No Threatened By a Person Tobacco & Substance use: Smoking Status Never smoker alcohol intake never Substance Use Type does not use Meds Home Medications and Allergies Home Medications Medication Instructions Recorded Confirmed Type sertraline 50 mg tablet 50 mg PO DAILY #90 tabs 01/20/22 10/05/22 Rx meclizine 25 mg tablet 25 mg PO QID PRN dizziness #20 tabs 04/12/22 10/05/22 Rx simvastatin 20 mg tablet See Rx Instructions .Route 07/31/22 10/05/22 Rx .COMPLEX #90 tabs erythromycin 5 mg/gram (0.5 %) eye 0.5 inch EYE-RIGHT QID Bacterial 08/22/22 10/05/22 Rx ointment conjunctivitis #7 grams trazodone 100 mg tablet 100 mg PO BEDTIME PRN insomnia #90 09/23/22 10/05/22 Rx tabs benzonatate 100 mg capsule 100 mg PO BID PRN cough #20 caps 10/05/22 10/05/22 Rx hydrocodone 5 mg-acetaminophen 325 1 tab PO BEDTIME PRN pain #14 tabs 11/06/22 11/06/22 Rx mg tablet meloxicam 7.5 mg tablet 7.5 mg PO DAILY #270 tabs 11/06/22 11/06/22 Rx ondansetron 4 mg disintegrating 4 mg PO Q6H PRN nausea and 11/06/22 Rx tablet vomiting #20 tabs Allergies Allergy/AdvReac Type Severity Reaction Status Date / Time No Known Drug Allergies Allergy Verified 11/10/22 11:36 Review of Systems Review of Systems Narrative: All other systems reviewed with the patient and are negative unless otherwise stated. Exam Vital Signs (past 8 hours): - 11/10/22 11:36 11/10/22 13:13 11/10/22 15:00 Temperature 97.7 F Pulse Rate 102 H 98 H Respiratory Rate 16 Blood Pressure 189/88 H 166/81 H 177/81 H Pulse Oximetry 95 93 Oxygen Delivery Method Room Air Room Air 11/10/22 15:00 11/10/22 15:14 11/10/22 15:14 Temperature Pulse Rate 105 H 102 H Respiratory Rate Blood Pressure 171/79 H Pulse Oximetry 93 95 Oxygen Delivery Method 11/10/22 15:30 11/10/22 15:30 11/10/22 16:00 Temperature Pulse Rate 98 H Respiratory Rate Blood Pressure 154/72 H 173/84 H Pulse Oximetry 92 Oxygen Delivery Method 11/10/22 16:00 11/10/22 16:31 Temperature Pulse Rate 98 H 102 H Respiratory Rate Blood Pressure Pulse Oximetry 93 90 L Oxygen Delivery Method Oxygen Delivery Method Room Air Narrative Exam Narrative: GEN: appears uncomfortable HEENT: moist mucous membranes, PERRL NECK: trachea midline, no JVD CV: regular rate and rhythm, no murmurs PULM: clear bilaterally MSK: Pain to palpation of right ribs ABD: soft, mildly tender, nondistended, no organomegaly EXT: warm and well perfused with no edema NEURO: awake, alert, oriented, no focal deficits Objective Labs Result Diagrams: 11/10/22 11:40 11/10/22 11:40 Labs: Laboratory Results - last 24 hr 11/10/22 11/10/22 11/10/22 11:40 11:40 15:13 WBC 7.1 RBC 4.40 Hgb 12.6 Hct 38.9 MCV 88.5 MCH 28.7 MCHC 32.4 RDW 14.1 Plt Count 346 Neut % (Auto) 76.4 H Lymph % (Auto) 10.9 L [place] % (Auto) 9.6 Eos % (Auto) 2.4 Baso % (Auto) 0.7 Neut # (Auto) 5400 Lymph # (Auto) 800 L [place] # (Auto) 700 Eos # (Auto) 200 Baso # (Auto) 0 Sodium 137 Potassium 4.4 Chloride 99 Carbon Dioxide 31 BUN 14 Creatinine 0.71 Estimated GFR > 60 BUN/Creatinine Ratio 19.7 Glucose 111 H Calcium 9.6 Total Bilirubin 0.3 AST 20 ALT 11 Alkaline Phosphatase 114 Total Protein 7.0 Albumin 3.8 Globulin 3.2 Albumin/Globulin Ratio 1.2 Lipase 42 Urine Color Yellow Urine Appearance Cloudy Urine pH 5.5 Ur Specific [place] 1.020 Urine Protein Trace H Urine Glucose (UA) Negative Urine Ketones 1+ H Urine Occult Blood 3+ H Urine Nitrate Positive H Urine Bilirubin Negative Urine Urobilinogen 0.2 Ur Leukocyte Esterase Trace H Urine RBC 5-10/hpf H Urine WBC 5-10/hpf H Ur Squamous Epith Cells 0-1 /hpf Amorphous Sediment 1+ Urine Bacteria Many (>30) H Urine Mucus 2+ H Ur Culture Indicated? Specimen cultured SARS-CoV-2 (PCR) 11/10/22 17:25 WBC RBC Hgb Hct MCV MCH MCHC RDW Plt Count Neut % (Auto) Lymph % (Auto) [place] % (Auto) Eos % (Auto) Baso % (Auto) Neut # (Auto) Lymph # (Auto) [place] # (Auto) Eos # (Auto) Baso # (Auto) Sodium Potassium Chloride Carbon Dioxide BUN Creatinine Estimated GFR BUN/Creatinine Ratio Glucose Calcium Total Bilirubin AST ALT Alkaline Phosphatase Total Protein Albumin Globulin Albumin/Globulin Ratio Lipase Urine Color Urine Appearance Urine pH Ur Specific [place] Urine Protein Urine Glucose (UA) Urine Ketones Urine Occult Blood Urine Nitrate Urine Bilirubin Urine Urobilinogen Ur Leukocyte Esterase Urine RBC Urine WBC Ur Squamous Epith Cells Amorphous Sediment Urine Bacteria Urine Mucus Ur Culture Indicated? SARS-CoV-2 (PCR) Negative Assessment & Plan Assessment & Plan narrative: # acute nausea/vomiting and generalized abd pain, present on admission -CT abdomen and pelvis with possible pancreatitis versus duodenitis, lipase 42. Possible PUD due to recent chronic mobic use. -Darinel general surgery consulted and appreciate recommendations -start Protonix IV b.i.d. -NS 150 cc/hour -clear liquid diet for now and will advance per surgeries recs, unless endoscopy planned # subacute right rib fractures, present on admission -seen in ED on 11/06 after falling and sustaining rib fractures 4 through 11 on right -oxycodone and IV Dilaudid as needed for pain control -incentive spirometry due to atelectasis seen on CT in right lower lobe # possible UTI, present on admission -pyuria on UA, culture pending -1 g Rocephin x3 days # depression, chronic -hold home sertraline due to interaction with Reglan, reports she hasn't been taking it # hyperlipidemia, chronic -hold home simvastatin for now # insomnia, chronic -continue home trazodone nightly Code status is DNR. COVID negative. DVT prophylaxis with Lovenox. Proxy is daughter Isabella. I have reviewed home meds and used all available resources to reconcile the home meds. This patient will be admitted as observation and will require less than 2 midnights of hospital time to treat acute nausea vomiting secondary to possible pancreatitis versus duodenitis. Time Spent With Patient Critical Care time: I spent a total of [] minutes of critical care time on this patient's care today; this time is exclusive of procedural time.
[2022-11-10] MEDS: SODIUM CHLORIDE 0.9% 1,000 ML 150 ML IV (18:33)
[2022-11-10] MEDS: PANTOPRAZOLE 40 MG VIAL IV ×2 (18:34→20:37)
[2022-11-10] MEDS: SENNOSIDES 8.6 MG TABLET PO ×2 (18:39→20:38)
[2022-11-10] MEDS: OXYCODONE IR 5 MG TABLET PO (18:49)
[2022-11-10] MEDS: cefTRIAXone 1,000 MG in SODIUM CHLORIDE 0.9% 100 ML 200 MG IV (20:39)
[2022-11-11] MEDS: SODIUM CHLORIDE 0.9% 1,000 ML 150 ML IV (01:52)
[2022-11-11 05:08] VITALS: BP 144/69; PULSE 88; RESP 18; TEMP 36.8; O2SAT 96
--- NOTE | 2022-11-11 06:47 | PC.NURSE ---
Pt. denies nausea all shift, declined zofran & no C/O pain.
[2022-11-11 07:08] LABS: Add Manual Diff / Slide Review NO; Basophils Absolute Auto 0 /uL (0-100); Basophils Percent Auto 0.9 % (0-2); Eosinophils Absolute Auto 200 /uL (0-450); Eosinophils Percent Auto 4.9 % (2-4); Hematocrit 32.5 % (36-46); Hemoglobin 10.7 g/dL (12.0-16.0); Lymphocytes Absolute Auto 900 /uL (1100-4500); Lymphocytes Percent Auto 23.3 % (25-40); Mean Corpuscular HGB Conc 32.8 % (30-36); Mean Corpuscular Hemoglobin 29.1 PG (26-34); Mean Corpuscular Volume 88.9 fL (80-100); Monocytes Absolute Auto 500 /uL (0-900); Monocytes Percent Auto 11.9 % (3-14); Neutrophils Absolute Auto 2400 /uL (1500-7000); Platelet Count 246 X10^3/uL (150-400); Red Blood Cell Count 3.65 X10^6/uL (4.0-5.2); White Blood Cell Count 4.1 X10^3/uL (4.5-11.0)
[2022-11-11 07:33] LABS: BUN Creatinine Ratio 13.8 (6-22); Blood Urea Nitrogen 9 mg/dL (7-17); Calcium 8.1 mg/dL (8.4-10.2); Carbon Dioxide 25 mmol/L (22-32); Chloride 104 mmol/L (98-107); Estimated Glomerular Filt Rate > 60 mL/min (>60); Glucose 87 mg/dL (80-110); HEMOLYSIS < 15 (0-50); Potassium 3.3 mmol/L (3.4-5.1); Sodium 137 mmol/L (137-145)
--- NOTE | 2022-11-11 07:46 | P.PN_ITS ---
Exam Vital Signs (past 8 hours): - 11/11/22 05:08 Temperature 98.2 F Pulse Rate 88 Respiratory Rate 18 Blood Pressure 144/69 H Pulse Oximetry 96 Oxygen Flow Rate 0 Oxygen Delivery Method Room Air Oxygen Flow Rate 0 Narrative Exam Narrative: GEN: appears uncomfortable HEENT: moist mucous membranes, PERRL NECK: trachea midline, no JVD CV: regular rate and rhythm, no murmurs PULM: clear bilaterally MSK: Pain to palpation of right ribs ABD: soft, mildly tender, nondistended, no organomegaly EXT: warm and well perfused with no edema NEURO: awake, alert, oriented, no focal deficits Objective Labs Result Diagrams: 11/11/22 06:17 11/10/22 11:40 Labs: Laboratory Results - last 24 hr 11/10/22 11/10/22 11/10/22 11:40 11:40 15:13 WBC 7.1 RBC 4.40 Hgb 12.6 Hct 38.9 MCV 88.5 MCH 28.7 MCHC 32.4 RDW 14.1 Plt Count 346 Neut % (Auto) 76.4 H Lymph % (Auto) 10.9 L [place] % (Auto) 9.6 Eos % (Auto) 2.4 Baso % (Auto) 0.7 Neut # (Auto) 5400 Lymph # (Auto) 800 L [place] # (Auto) 700 Eos # (Auto) 200 Baso # (Auto) 0 Sodium 137 Potassium 4.4 Chloride 99 Carbon Dioxide 31 BUN 14 Creatinine 0.71 Estimated GFR > 60 BUN/Creatinine Ratio 19.7 Glucose 111 H Calcium 9.6 Total Bilirubin 0.3 AST 20 ALT 11 Alkaline Phosphatase 114 Total Protein 7.0 Albumin 3.8 Globulin 3.2 Albumin/Globulin Ratio 1.2 Lipase 42 Urine Color Yellow Urine Appearance Cloudy Urine pH 5.5 Ur Specific [facility] 1.020 Urine Protein Trace H Urine Glucose (UA) Negative Urine Ketones 1+ H Urine Occult Blood 3+ H Urine Nitrate Positive H Urine Bilirubin Negative Urine Urobilinogen 0.2 Ur Leukocyte Esterase Trace H Urine RBC 5-10/hpf H Urine WBC 5-10/hpf H Ur Squamous Epith Cells 0-1 /hpf Amorphous Sediment 1+ Urine Bacteria Many (>30) H Urine Mucus 2+ H Ur Culture Indicated? Specimen cultured SARS-CoV-2 (PCR) 11/10/22 11/11/22 17:25 06:17 WBC 4.1 L RBC 3.65 L Hgb 10.7 L Hct 32.5 L MCV 88.9 MCH 29.1 MCHC 32.8 RDW 14.0 Plt Count 246 Neut % (Auto) 59.0 Lymph % (Auto) 23.3 L [place] % (Auto) 11.9 Eos % (Auto) 4.9 H Baso % (Auto) 0.9 Neut # (Auto) 2400 Lymph # (Auto) 900 L [place] # (Auto) 500 Eos # (Auto) 200 Baso # (Auto) 0 Sodium Potassium Chloride Carbon Dioxide BUN Creatinine Estimated GFR BUN/Creatinine Ratio Glucose Calcium Total Bilirubin AST ALT Alkaline Phosphatase Total Protein Albumin Globulin Albumin/Globulin Ratio Lipase Urine Color Urine Appearance Urine pH Ur Specific [facility] Urine Protein Urine Glucose (UA) Urine Ketones Urine Occult Blood Urine Nitrate Urine Bilirubin Urine Urobilinogen Ur Leukocyte Esterase Urine RBC Urine WBC Ur Squamous Epith Cells Amorphous Sediment Urine Bacteria Urine Mucus Ur Culture Indicated? SARS-CoV-2 (PCR) Negative PFSH Medical History Abnormal mammogram Decreased glomerular filtration rate (GFR) (12/2021) Depression GERD (gastroesophageal reflux disease) (Unknown) Hyperlipidemia Osteoarthritis (Unknown) Pain in both knees Vertigo Surgical History Hx of cholecystectomy (Unknown) Family History Sister Cancer Social History household members: family Smoking Status: Never smoker second hand exposure: No alcohol intake: never substance use type: does not use Assessment & Plan Assessment & Plan narrative: # acute nausea/vomiting and generalized abd pain, present on admission -CT abdomen and pelvis with possible pancreatitis versus duodenitis, lipase 42. Possible PUD due to recent chronic mobic use. -Darinel general surgery consulted and appreciate recommendations -start Protonix IV b.i.d. -NS 150 cc/hour -clear liquid diet for now and will advance per surgeries recs, unless endoscopy planned # subacute right rib fractures, present on admission -seen in ED on 11/06 after falling and sustaining rib fractures 4 through 11 on right -oxycodone and IV Dilaudid as needed for pain control -incentive spirometry due to atelectasis seen on CT in right lower lobe # possible UTI, present on admission -pyuria on UA, culture pending -1 g Rocephin x3 days # depression, chronic -hold home sertraline due to interaction with Reglan, reports she hasn't been taking it # hyperlipidemia, chronic -hold home simvastatin for now # insomnia, chronic -continue home trazodone nightly Code status is DNR. COVID negative. DVT prophylaxis with Lovenox. Proxy is daughter Isabella. I have reviewed home meds and used all available resources to reconcile the home meds. This patient will be admitted as observation and will require less than 2 midnights of hospital time to treat acute nausea vomiting secondary to possible pancreatitis versus duodenitis. Time Spent With Patient Critical Care time: I spent a total of [] minutes of critical care time on this patient's care today; this time is exclusive of procedural time.
[2022-11-11 08:56] LABS: Magnesium 1.8 mg/dL (1.6-2.3)
[2022-11-11] MEDS: PANTOPRAZOLE DR 40 MG TABLET PO (10:25)
[2022-11-11] MEDS: SENNOSIDES 8.6 MG TABLET PO (10:25)
[2022-11-11] MEDS: MAGNESIUM SULFATE 2 GM/50 ML PIGGYBACK IV (10:25)
[2022-11-11] MEDS: ENOXAPARIN 40 MG/0.4 ML SYRINGE SUBCUT (10:25)
[2022-11-11] MEDS: POTASSIUM CHLORIDE 20 MEQ TAB 40 MEQ PO (10:27)
--- NOTE | 2022-11-11 11:18 | CM.DANOTE ---
Initial DCP Assessment Note Pt is a 82 yo female, resident of [place], presents with persistent nausea w/recent fall and rib fx. Admitted for management of sx n/v, if improvement today possibly home w/family PCP: Patricia Patino Payer: Estuardo CALVO Reviewed chart, met w/patient, her dtr/DPOA Isabella and AURA Cat, introduced self and role Patient lives with her dtr, AURA and their two teenagers and plans to return upon discharge. Patient ambulates indp at baseline and has no hx of HH or in home services Patient denies needs from this PULP GRINDER, hopeful to return home later today w/family to assist as needed. No barriers identified at this time to patient's safe discharge home w/family to assist; close outpatient f/u recommended once medically discharged VARGHESE Richards Discharge Planning/Care Management CM Discharge Assessment Start: 11/11/22 11:14 Freq: Status: Active Protocol: Document 11/11/22 11:15 ISSAC (Rec: 11/11/22 11:18 ISSAC [id number]) Discharge Planning Assessment Assigned Software Engineer Kernel VARGHESE [place] [email or web address]/Assigned Designee Name Isabella Carballo dtr/LUIZA [phone] Contact Information AURA bAdul [phone] Advance Directives? Yes Advance Directives on File No: daughter Isabella will bring a copy History Provided By Patient,Family Member,Medical Record Comment ER 12.17 and 1.6 Prior Living Arrangements House Household Members family Type of transporation used prior to Drives own vehicle admit Independent with ADL's Yes Is patient alert and oriented? Yes Needs Assistance With Meal Prep,Home Chores / Shopping Barriers to Discharge No Comment Expect Home w/family and close outpatient f/u Discharge Plan Home Transportation Arrangement Family Additional Comment r/o need for HH upon discharge Whiteboard Updated in Patient Room with Yes name and ext. # of Software Engineer Kernel
--- NOTE | 2022-11-11 11:23 | PC.NURSE ---
Assess- Patient is alert and oriented x4. She is feeling better and denies nausea. She will try food soon, and she denies pain. Magnesium infusing through iv, dressing reenforced, as iv was slightly leaking. Pt up and showered. She is feeling well at this time.
[2022-11-11 12:09] VITALS: BP 152/68; PULSE 88; RESP 18; TEMP 36.6; O2SAT 96
--- NOTE | 2022-11-11 16:38 | PM.DS.1 ---
History of Present Illness History of Present Illness Date Patient Seen: 11/11/22 Chief complaint: incredible nausea, since 2016, seen here on Wednesday Narrative: Jeannette kahn is an 82-year-old female with past medical history of recent fall resulting in right ribs 4-11 fractures, depression, GERD, HLD and insomnia who presents with intractable NV and right rib pain. Patient tripped over her cat on 11/06 and fell onto a baby grand piano on her right side and had immediate pain. Seen in our ED the same day and had a chest CT which confirmed the fractures and sent home with some pain meds. She has been taking 1 norco nightly. Since then she has developed severe NV and unable to keep anything down. Hasn't eaten in several days due to this. The SL zofran given by ED did nothing. Also notes generalized abd pain but no epigastric pain particularly. Has been taking Mobic for over a month. Has a history of GERD but hasn't been on a PPI. Does not have a gallbladder. Currently her right rib pain is 8/10. Denies headache, CP, or diarrhea. Discharge Providers Provider Date of admission: 11/10/22 17:16 Discharge Date: 11/11/22 Primary care physician: Patricia Patino DO Consults: 11/10/22 17:30 Consult to General Surgery Routine Comment: Consulting Provider: Griselda Tena Reason for consultation: duodenitis Discharge provider: Naman Silva DO Summary Hospital Course Discharge Diagnosis: # acute nausea/vomiting and generalized abd pain, present on admission -CT abdomen and pelvis with possible pancreatitis versus duodenitis, lipase 42. Possible PUD due to recent chronic mobic use. -[facility] general surgery consulted and appreciate recommendations, was going to take for EGD but patient's symptoms resolved with PPI -started on protonix 40 BID and patients symptoms completely resolved the next day after admission -discharged on po protonix for 4 weeks # subacute right rib fractures, present on admission -seen in ED on 11/06 after falling and sustaining rib fractures 4 through 11 on right -oxycodone worked will for pain control # possible UTI, present on admission -pyuria on UA, culture pending -patient denies urinary symptoms so abx stopped on dc # depression, chronic -hold home sertraline due to interaction with Reglan, reports she hasn't been taking it # hyperlipidemia, chronic -hold home simvastatin for now # insomnia, chronic -continue home trazodone nightly Hospital Course: Admitted for acute NV and generalized abd pain with CT abd reading as possible duodenitis vs pancreatitis. However she did not have lipase elevation or epigastric pain consistent with pancreatitis. Gen surg consulted for possible EGD however after being started on protonix BID patient's symptoms completely resolved. Therefore her symptoms were likely GERD related so she was put on 4 weeks of PPI BID in case duodenitis was due to PUD. Also given script for oxycodone for her rib fracture pain and reglan PRN for nausea and vomiting if it were to reoccur. Time Spent with Patient Time spent: Greater than 30 minutes Exam Vital Signs (past 8 hours): - 11/11/22 12:09 Temperature 97.9 F Pulse Rate 88 Respiratory Rate 18 Blood Pressure 152/68 H Pulse Oximetry 96 Oxygen Flow Rate 0 Oxygen Delivery Method Room Air Oxygen Flow Rate 0 Narrative Exam Narrative: GEN: appears uncomfortable HEENT: moist mucous membranes, PERRL NECK: trachea midline, no JVD CV: regular rate and rhythm, no murmurs PULM: clear bilaterally MSK: Pain to palpation of right ribs ABD: soft, mildly tender, nondistended, no organomegaly EXT: warm and well perfused with no edema NEURO: awake, alert, oriented, no focal deficits Objective Labs Result Diagrams: 11/11/22 06:17 11/11/22 06:17 Labs: Laboratory Results - last 24 hr 11/10/22 11/11/22 11/11/22 17:25 06:17 06:17 WBC 4.1 L RBC 3.65 L Hgb 10.7 L Hct 32.5 L MCV 88.9 MCH 29.1 MCHC 32.8 RDW 14.0 Plt Count 246 Neut % (Auto) 59.0 Lymph % (Auto) 23.3 L Coos % (Auto) 11.9 Eos % (Auto) 4.9 H Baso % (Auto) 0.9 Neut # (Auto) 2400 Lymph # (Auto) 900 L Coos # (Auto) 500 Eos # (Auto) 200 Baso # (Auto) 0 Sodium 137 Potassium 3.3 L Chloride 104 Carbon Dioxide 25 BUN 9 Creatinine 0.65 Estimated GFR > 60 BUN/Creatinine Ratio 13.8 Glucose 87 Calcium 8.1 L Magnesium SARS-CoV-2 (PCR) Negative 11/11/22 06:17 WBC RBC Hgb Hct MCV MCH MCHC RDW Plt Count Neut % (Auto) Lymph % (Auto) Coos % (Auto) Eos % (Auto) Baso % (Auto) Neut # (Auto) Lymph # (Auto) Coos # (Auto) Eos # (Auto) Baso # (Auto) Sodium Potassium Chloride Carbon Dioxide BUN Creatinine Estimated GFR BUN/Creatinine Ratio Glucose Calcium Magnesium 1.8 SARS-CoV-2 (PCR) [facility] Medical History Abnormal mammogram Decreased glomerular filtration rate (GFR) (12/2021) Depression GERD (gastroesophageal reflux disease) (Unknown) Hyperlipidemia Osteoarthritis (Unknown) Pain in both knees Vertigo Surgical History Hx of cholecystectomy (Unknown) Family History Sister Cancer Social History household members: family Smoking Status: Never smoker second hand exposure: No alcohol intake: never substance use type: does not use Discharge Plan Discharge Plan Patient Disposition: Home Provider Discharge Comment: You were admitted for nausea and vomiting which resolved with protonix which is an antiacid med. I've put you on this for a month and you'll need to talk with your PCP about continuing it longer or not. I've also sent reglan oral for nausea if you need it and oxycodone for your rib fracture pain. Discharge orders & Medications Prescriptions: New pantoprazole 40 mg Tablet,Delayed Release (Dr/Ec) 40 mg PO 0700,2099 30 Days Qty: 60 0RF oxycodone 5 mg Tablet 5 mg PO Q4HR PRN (Reason: Pain, Moderate (4-6)) Qty: 20 0RF metoclopramide HCl [Reglan] 10 mg tablet 10 mg PO Q6H PRN (Reason: nausea and vomiting) Qty: 30 0RF Continued benzonatate 100 mg capsule 100 mg PO BID PRN (Reason: cough) Qty: 20 0RF simvastatin 20 mg tablet See Rx Instructions .ROUTE .COMPLEX Qty: 90 1RF Dose Instruction: Take one tablet by mouth at bedtime Rx Instructions: Take one tablet by mouth at bedtime trazodone 100 mg tablet 100 mg PO BEDTIME PRN (Reason: insomnia) Qty: 90 0RF triamcinolone acetonide [Kenalog] 40 mg/mL suspension 80 mg intra-articular ONCE Qty: 2 0RF sertraline 50 mg tablet 50 mg PO DAILY Qty: 90 2RF meclizine 25 mg tablet 25 mg PO QID PRN (Reason: dizziness) Qty: 20 0RF Discontinued meloxicam 7.5 mg tablet 7.5 mg PO DAILY Qty: 270 1RF Hold Instructions: taking higher dose for rib pain Rx Instructions: 1-2 tabs with food in the morning, 1 tab with dinner hydrocodone-acetaminophen 5-325 mg tablet 1 tab PO BEDTIME PRN (Reason: pain) Qty: 14 0RF ondansetron 4 mg tablet,disintegrating 4 mg PO Q6H PRN (Reason: nausea and vomiting) Qty: 20 0RF Follow up/Referrals: Patricia Patino DO [Primary Care Provider] - 2 Weeks Visit Report/Discharge Packet Instructions: DI for Gastroesophageal Reflux Disease (GERD), Pantoprazole, Oxycodone, Metoclopramide Stand Alone Forms: Patient Portal/API, Stroke Signs & Symptoms Discharge Data Primary Care Provider: Patricia Patino Attending Provider: Naman Silva
== END 2022-11-11 14:30 | disposition home or self-care (01) ==
LOC: ED 14:43 → AC 17:51
PROVIDERS: Admitting Provider Student in an Organized Health Care Education/Training Program; Emergency Provider Emergency Medicine; PCP Family Medicine; Referring Provider Emergency Medicine; Visit Provider Student in an Organized Health Care Education/Training Program
DX: R11.2 Nausea with vomiting, unspecified (principal); R10.84 Generalized abdominal pain; K21.9 Gastro-esophageal reflux disease without esophagitis; R82.81 Pyuria; S22.41XD Multiple fractures of ribs, right side, subsequent encounter for fracture with routine healing; W01.190D Fall on same level from slipping, tripping and stumbling with subsequent striking against furniture, subsequent encounter; Z20.822 Contact with and (suspected) exposure to COVID-19
CPT/HCPCS: 36415; 71250; 74177; 80048; 80053; 81001; 81003; 83690; 83735; 85025; 87077; 87086; 87186; 87635; 96361; 96365; 96372; 96375; 99284; C9803; G0378; C9113; J0696; J1650; J2405; J2765; J3475

== ENCOUNTER → 2022-12-03 08:01 | Outpatient (CLI) | payer OTHER, SELFPAY ==
[2022-11-10 22:09] VITALS: BMI 29.2
[2022-12-03 10:44] LABS: Cholesterol 168 mg/dL (140-199); HDL Cholesterol 78 mg/dL (40-60); LDL Cholesterol Calculated 58 mg/dL (<100); Triglycerides 160 mg/dL (35-150)
== END ==
PROVIDERS: PCP Family Medicine; Referring Provider Family Medicine; Visit Provider Family Medicine
DX: E78.5 Hyperlipidemia, unspecified (principal)
CPT/HCPCS: 36415; 80061

== ENCOUNTER → 2022-12-25 09:15 | Outpatient (CLI) | payer OTHER, SELFPAY ==
[2022-11-10 22:09] VITALS: BMI 29.2
--- NOTE | 2022-12-25 | DI.MG.S_ITS ---
BILATERAL DIGITAL SCREENING MAMMOGRAM 3D/2D WITH CAD: 12/25/2022 CLINICAL: Routine screening. Family history of breast cancer. Comparison is made to exams dated: 12/15/2021 mammogram, 12/13/2020 mammogram, 06/06/2020 mammogram, and 12/01/2019 mammogram - [facility]. Both breasts are heterogeneously dense, which may obscure small masses (category c / 51-75% glandular tissue). Current study was also evaluated with a Computer Aided Detection (CAD) system. No significant masses, calcifications, or other findings are seen in either breast. There has been no significant interval change. IMPRESSION: NEGATIVE There is no mammographic evidence of malignancy. A 1 year screening mammogram is recommended. Based on the Tyrer Cuzick model (a risk assessment model) the patient's lifetime risk is 5.0% and her 10 year risk is 0.0%. According to the ACR, ACS, and NCCN guidelines, an annual breast MRI exam along with mammogram is recommended if the patient's lifetime risk is 20% or greater. This exam was interpreted at Station ID: [id number]. NOTE: For mammograms, a report in lay terms will be sent to the patient. Approximately 15% of breast malignancies will not be visualized mammographically. In the management of a palpable breast mass, a negative mammogram must not discourage biopsy of a clinically suspicious lesion. Electronically Signed By: Constantin gomez/lc:12/25/2022 12:23:13 letter sent: Normal Exam ACR BI-RADS Category 1: Negative [id number]
== END ==
PROVIDERS: PCP Family Medicine; Referring Provider Family Medicine; Visit Provider Family Medicine
DX: Z12.31 Encounter for screening mammogram for malignant neoplasm of breast (principal); Z80.3 Family history of malignant neoplasm of breast
CPT/HCPCS: 77063; 77067

== ENCOUNTER → 2023-11-25 09:21 | Outpatient (CLI) | payer OTHER, SELFPAY ==
[2022-11-10 22:09] VITALS: BMI 29.2
[2023-11-25 10:34] LABS: Add Manual Diff / Slide Review NO; Basophils Absolute Auto 0 /uL (0-100); Basophils Percent Auto 1.3 % (0-2); Eosinophils Absolute Auto 100 /uL (0-450); Eosinophils Percent Auto 3.7 % (2-4); Hematocrit 40.6 % (36-46); Hemoglobin 13.5 g/dL (12.0-16.0); Lymphocytes Absolute Auto 800 /uL (1100-4500); Lymphocytes Percent Auto 27.2 % (25-40); Mean Corpuscular HGB Conc 33.2 % (30-36); Mean Corpuscular Volume 90.2 fL (80-100); Monocytes Absolute Auto 300 /uL (0-900); Monocytes Percent Auto 10.4 % (3-14); Neutrophils Absolute Auto 1700 /uL (1500-7000); Neutrophils Percent Auto 57.4 % (50-75); Platelet Count 180 X10^3/uL (150-400); Red Blood Cell Count 4.51 X10^6/uL (4.0-5.2); Red Cell Distribution Width 13.3 % (11.6-14.8)
[2023-11-25 11:05] LABS: BUN Creatinine Ratio 17.1 (6-22); Blood Urea Nitrogen 13 mg/dL (7-17); Calcium 9.3 mg/dL (8.4-10.2); Carbon Dioxide 26 mmol/L (22-32); Chloride 103 mmol/L (98-107); Estimated Glomerular Filt Rate > 60 mL/min (>60); Glucose 123 mg/dL (80-110); HEMOLYSIS < 15 (0-50); Potassium 4.4 mmol/L (3.4-5.1); Sodium 137 mmol/L (137-145)
== END ==
PROVIDERS: PCP Family Medicine; Referring Provider Orthopaedic Surgery; Visit Provider Orthopaedic Surgery
DX: Z01.818 Encounter for other preprocedural examination (principal); M25.561 Pain in right knee; Z01.812 Encounter for preprocedural laboratory examination
CPT/HCPCS: 36415; 80048; 85025; 93005

== ENCOUNTER 2023-12-28 09:02 | Day surgery (SDC) | payer OTHER, SELFPAY ==
[2022-11-10 22:09] VITALS: BMI 29.2
[2023-12-22 09:32] VITALS: BMI 29.6
[2023-12-28] VITALS (11 sets, daily range): BP systolic 124–162; BP diastolic 58–78; PULSE 75–101; RESP 12–20; TEMP 35.9–36.6; O2SAT 93–98; BMI 29.6
--- NOTE | 2023-12-28 06:00 | DI.RAD.S_ITS ---
PROCEDURE: XR KNEE RT 1TO2V INDICATIONS: post-op TECHNIQUE: 2 view(s) of the knee acquired. COMPARISON: [facility] [place], [place], XR KNEE ARTHRITIC SERIES BI, 07/14/2023, 16:14. [facility], [place], KNEE 3V LEFT, 03/05/2016, 8:42. FINDINGS: Bones: Patient is status post knee joint arthroplasty. Hardware components are in expected positions. Visualized bony structures are intact. Soft tissues: Overlying postoperative changes are noted. IMPRESSION: Expected post-operative appearance of a knee arthroplasty. Dictated by: Rakan Antony M.D. on 12/28/2023 at 17:22 Approved by: Rakan Antony M.D. on 12/28/2023 at 17:22
[2023-12-28] MEDS: CELECOXIB 200 MG CAPSULE 400 MG PO (09:54)
[2023-12-28] MEDS: ACETAMINOPHEN IV 1,000 MG/100 ML VIAL 400 MG IV (09:57)
[2023-12-28] MEDS: VANCOMYCIN 1,000 MG/200 ML PIGGYBACK 200 MG IV (10:02)
[2023-12-28] MEDS: LACTATED RINGERS 1,000 ML 42 ML IV (10:02)
--- NOTE | 2023-12-28 10:24 | PM.PREOP ---
Pre-operative Note Interval Note History & Physical reviewed/Exam performed by Physician: Yes Changes to H&P: No
--- NOTE | 2023-12-28 10:24 | PM.OP.1 ---
Operative Date/Time/Diagnoses Date of procedure: 12/28/23 Time of procedure: 11:00 Pre-op diagnosis: Right knee OA Post-op diagnosis: same Procedure & Clinicians Procedure: Right total knee arthroplasty Same procedure as scheduled: Yes Indications: The patient has had progressively worsening right knee pain with radiographic changes consistent with arthritis. Non-operative management has failed and the patient has requested total knee replacement. The risks, benefits and alternatives to surgery were discussed with the patient prior to proceeding. Risks discussed included, but were not limited to, failure to relieve pain, stiffness, infection, nerve damage, deep venous thrombosis, pulmonary embolism, stroke, coma, heart attack, permanent paralysis and , as well as the potential need for eventual revision of the prosthetic. Surgeon: Natalia Mcallister Architectural Project Manager: Steve Ashby Anesthesia Type: General and Spinal Operative Notes Findings: Severe right knee OA, adequate bone Closure Type: primary Specimen(s): none sent Prosthetic devices, grafts, tissues, transplants, or devices: Mcallister and nephew diandra BCS 2 size 4 femur, size 3 tibia, +10 poly, 32 x 7-1/2 mm patella Estimated Blood Loss (mL): 250 Blood products transfused: none Tourniquet time (min): 82 Procedure in detail: The patient was seen in the pre-operative area, where the patient identified the right knee as the operative site and this was marked with my initials. The patient received pre-operative antibiotics, and was taken to the operating room and placed on the operative table in the supine position. After satisfactory anesthesia, a automatic winder operator out was performed. The right leg was encircled with a tourniquet about the proximal thigh, and the leg was prepared from the toes to the tourniquet with ChloroPrep in the usual fashion and draped through sterile drapes. The leg was elevated and exsanguinated with Eschmark bandage and the tourniquet inflated to [250] mmHg pressure. A PA was used during the procedure and was essential for intraoperative retraction and safe implantation of the components. The knee was approached through an approximately 18 cm incision centered over the patella and carried into the knee through a medial parapatellar arthrotomy. Portion of the medial and lateral meniscus was resected. Soft tissue was carefully mobilized around the patella the patella was measured with a caliper. Bone was resected from the patella and the patellar height was reconstituted with up an appropriate sized patellar component. A cover was then placed on the patella. A small amount of additional medial and lateral meniscus was resected. Osteophytes were carefully resected. Two Cori pins were placed in the femur and in the tibia for robot assisted navigation. The patient was placed for range of motion and measurements were taken for stressed and unstressed range of the motion of the knee and the femur and tibia were carefully mapped. A plan was taken and improved. A bur was used to resect femoral bone for the distal femoral cut and the proximal tibial jig. The 5 in 1 appropriate size femoral guide was placed on the distal femur and finishing cuts were made. There was no evidence of notching. The anterior, posterior and chamfer cuts were then made. The posterior osteophytes and soft tissues were then removed. The posterior capsule was injected with part of a mixture of 60 ml 0.25% Marcaine mixed with 266 mg Exparel for post operative pain control. The remainder of this mixture was injected into the capsule and subcutaneous tissues during cement curing. The tibia guide was meticulously adjusted using robot assisted navigation. The proximal tibial cut was then made without difficulty. The rotation was assessed. The patient was placed in extension residual medial and lateral meniscus as well as any residual bone was carefully resected. [No] additional tibia was resected. Hemostasis was achieved especially posteriorly. Additional local was injected into the posterior capsule. The femoral component trial was placed and the notch was finished. Trial tibial and femoral components were then placed and the knee placed through a range of motion. Range of motion was [0-130], with good stability throughout the range. The trials were then removed, and the tibia was finished. The bone was prepared with pulsatile lavage, and dried with a sponge. Cement was applied and the final prosthetics placed. Excess cement was removed during and after cement curing. A brief Betadine soak was performed. After confirming there was no extruded cement posteriorly, the final tibial insert was placed. The knee was copiously irrigated and the tourniquet deflated. Hemostasis was obtained with the Bovie. The capsule was closed with interrupted # 1 Vicryl suture. The subcutaneous layer was closed with barbed sutures, and the skin with a running 3-0 V-Lock suture and Surgical glue. An Aquacel Ag dressing was applied and the patient was taken to recovery having tolerated the procedure well. Complications: none Post-operative Condition: stable Disposition: Acute Care Plan for aftercare: The patient will be maintained on a standard total knee replacement protocol with weight bearing as tolerated. The patient will receive aspirin and sequential compression devices for DVT prophylaxis. The patient will be discharged home when safe for the home environment.
[2023-12-28] MEDS: CEFAZOLIN 2 GM/100 ML PREMIX 100 ML IV (11:11)
[2023-12-28] MEDS: TRANEXAMIC ACID 1,000 MG VIAL 1000 MG INJ (11:20)
--- NOTE | 2023-12-28 11:24 | SUR.OPER ---
Supine on padded OR bed. Pillow under head, arms secured on padded armboards <90 degree abduction. Safety belt across torso. Non-operative leg secured with tape over blanket over lower leg. Operative leg secured in Magnus positioner. Foam padded brace at thigh of operative leg.
[2023-12-28] MEDS: BUPIVACAINE 0.25% (PF) 30 ML, EPINEPHrine 0.15 MG INJ (12:09)
[2023-12-28] MEDS: BUPIVACAINE LIPOSOME 266 MG/20 ML VIAL INJ (12:10)
[2023-12-28] MEDS: OXYCODONE IR 5 MG TABLET PO (14:54)
[2023-12-28] MEDS: ACETAMINOPHEN 325 MG TABLET 650 MG PO (14:55)
--- NOTE | 2023-12-28 15:37 | OT.IP.EVAL ---
Current Diagnoses Unilateral primary osteoarthritis, right knee (12/28/23) Surgery Performed Operation Date: 12/28/23 10:45 Actual Procedures p Total Knee Arthroplasty - Robot(Right) - Natalia Mcallister MD Past Medical History (Last Updated 11/23/23 @ 09:23 by Patricia Patino DO) Abnormal mammogram Cerumen impaction Depression GERD (gastroesophageal reflux disease) (Unknown) Hyperlipidemia Osteoarthritis (Unknown) Surgical History (Last Updated 12/22/23 @ 10:03 by Vicky Cordova RN) Hx of bilateral cataract extraction Hx of cholecystectomy (Unknown) Occupational Therapy Inpatient Evaluation/Re-Eval M1 PT/OT-IP Prior Functional Status Start: 12/28/23 15:38 Freq: NEEDED Status: Active Protocol: Document 12/28/23 15:38 [facility] (Rec: 12/28/23 15:49 [facility] [id number]) Medical Review Prior Functional Status Communication Independent Mobility and Gait Independent with no device but had pain when walking. Activities of Daily Living and IADL's Able to do ADL and IADL needs but had pain. Prior Functional Level (Other details) Pt lives with her daughter and another daughter to be staying to assist for the next 2 weeks. Social History Household Members children Living Arrangements House Number of Floors (Floors) 3 or More Floors Number of Stairs To Enter/Railing? Pt able to live in the main level with no steps to enter. Home Environment Standard Height Toilet,Walk in Shower Home Equipment Front Wheel Walker,Straight Cane,Bedside Commode,Shower Seat with Backrest,Hand Held Shower M2 OT-IP Current Condition Start: 12/28/23 15:38 Freq: Status: Active Protocol: Document 12/28/23 15:38 [facility] (Rec: 12/28/23 15:49 [facility] [id number]) Occupational Therapy Current Condition Current Condition Evaluation Date 12/28/23 Treatment Diagnosis S/P R TKA Diagnosis Onset Date 12/28/23 M3 OT- IP Subjective and Pain Start: 12/28/23 15:38 Freq: Status: Active Protocol: Document 12/28/23 15:38 [facility] (Rec: 12/28/23 15:49 [facility] [id number]) OT- Subjective Occupational Therapy Visit Type Type Initial Evaluation Visit Start Time 14:55 Visit Stop Time 15:37 Occupational Therapy Visit Comments Patient Comments Pt agreed to get up, pt's daughters present in the room for OT eval. Patient/Caregiver Goals TO go home. OT Pain Assessment Pain When Pain Assessed At Rest Pain Present Pain Present Pain Reported Location Right Knee Intensity 6 Scale Used Numeric (0 - 10) M4 OT- IP ADL's Start: 12/28/23 15:38 Freq: Status: Active Protocol: Document 12/28/23 15:38 [facility] (Rec: 12/28/23 15:49 [facility] [id number]) OT KLN-[id number]-Fljexhv Comments OT Self-Feeding Comments NO issues anticipated. OT ADL-Grooming Comments OT Grooming Comments Pt refusing. OT ADL-Oral Care Comments Oral Care Comments Pt refusing. OT ADL-Dressing General Eval Lower Body Dressing Ability Maximum Assistance Areas Needing Assistance Socks Comments OT Dressing Comments Pt needing assist for socks. Pt states to just wear a night gown at home. Educated to dress her RLE first and take out last. OT ADL-Toileting Comments OT Toileting Comments Pt not having to go at this time. Pt plans on placing the BSC next to the bed to assist her. Suggested pt call her daughters to assist her at night. OT ADL-Bathing Comments OT Bathing Comments Pt is able to use the FWW to get get into the shower and has a shower chair. M5 OT- IP IADL's Start: 12/28/23 15:38 Freq: Status: Active Protocol: Document 12/28/23 15:38 [facility] (Rec: 12/28/23 15:49 [facility] [id number]) OT-Instrumental Activities of Daily Living Deficits IADL Deficits Identified Deficits Home Safety Awareness Awareness of Need for Assistance at Home Good Awareness Ability to Problem Solve Emergency Able to Problem Solve Situations Home Safety Comments Pt's daughter able to assist her as needed. Meal Preparation Meal Preparation Caregiver Provides Assist Roundhouse Worker Roundhouse Worker Caregiver Provides Assist M6 OT- IP Functional Cognition Start: 12/28/23 15:38 Freq: Status: Active Protocol: Document 12/28/23 15:38 [facility] (Rec: 12/28/23 15:49 [facility] [id number]) Cognitive Factors Limiting Selfcare Function Cognitive Ability Level of Alertness Alert Patient Orientation Name,Age,Birthday,Month,Date, Year,Day of Week,Place, Situation Attention Span Ability Capable of Focused Attention, Capable of Sustained Attention Ability to Follow Commands Able to Follow One Step Commands Cognitive Comments Cognitive Assessment Comments Pt able to follow commands for ADL and IADL needs. OT- Vision and Hearing OT- Hearing Assessment OT- Hearing Assessment Use of Hearing Aids OT- Vision Assessment Visual Acuity WFL Vision Assessment Comments Pt does not use her hearing aids and a little hard of hearing. M7 OT- IP Mobility and Balance Start: 12/28/23 15:38 Freq: Status: Active Protocol: Document 12/28/23 15:38 [facility] (Rec: 12/28/23 15:49 [facility] [id number]) OT- Bed Mobility Assessment Supine to Sit Supine to Sit Assist Contact Guard Assistance Sit to Supine Sit to Supine Assist Minimal Assistance Scooting Scooting to Edge of Bed Contact Guard Assistance OT-Transfer Assessment Sit to and From Stand Sit to and from Stand Contact Guard Assistance, Minimal Assistance Technique Transfer Destination Bed Transfer Technique Stand Step Pivot Devices Transfer Assistive Devices Gait Belt,Front Wheeled Walker Comments Mobility Comments CGA to help get her RLE to the edge of the bed and ABDON to help get her RLE back into bed . ABDON to stand initially, vc to push up from the bed and to slide her leg forwards prior to standing and sitting down for now. Able to educated pt's daughters to samantha/doff the gait belt. Able to go over techniques for car transfer. OT- Balance Assessment Sitting Balance and Reactions Static Sitting Balance Ability Good Dynamic Sitting Balance Ability Good Standing Balance and Reactions Static Standing Balance Ability Fair Dynamic Standing Balance Ability Poor M8 OT- IP Objective Assessments Start: 12/28/23 15:38 Freq: Status: Active Protocol: Document 12/28/23 15:38 [facility] (Rec: 12/28/23 15:49 [facility] [id number]) OT Gross Range of Motion Upper Extremity Range of Motion Assessment Within Functional Limits OT Strength Comments Strength Comments WFL for needs. OT-Muscle Tone Assessment Muscle Tone WNL Yes M9 OT- IP Assessment and Plan Start: 12/28/23 15:38 Freq: Status: Active Protocol: Document 12/28/23 15:38 [facility] (Rec: 12/28/23 15:49 [facility] [id number]) OT Summary Assessment and Plan Potential Rehabilitation Potential Excellent Analytic Complexity at Evaluation Low Summary OT Impairments Pain,Balance,Functional Mobility,Dressing,Toileting, Bathing,Toilet Transfers, Shower Transfers Progress Towards Goals Progressing Toward Goals,Slow Progress due to Pain Assessment Summary Pt low complexity and main barriers are pain, and will need assist for ADL needs and mobility . Able to initiate caregiver training with her daughter who are very supportive. Pt to go home when medically stable. Pt would benefit from LB dressing equipment but states her daughters will just assist her . Pt has outpt PT already scheduled. Goals Grooming Goal Independent Dressing Goal Minimal Assistance Toileting Goal Independent Bathing Goal Standby Assistance Toilet Transfer Goal Independent Shower Transfer Goal Standby Assistance Days to Meet Goals 5 Frequency of Treatment Frequency Of Treatment Once a Day Treatment Plan OT Treatment Plan ADL Training,Functional Mobility,Patient/Family Education,Discharge Planning Discharge Recommendations OT Discharge Recommendations Home with Assistance, Outpatient PT Transportation Needs at Discharge Private Vehicle
--- NOTE | 2023-12-28 16:00 | PT.IIE ---
Current Diagnoses Unilateral primary osteoarthritis, right knee (12/28/23) Surgery Performed Operation Date: 12/28/23 10:45 Actual Procedures p Total Knee Arthroplasty - Robot(Right) - Natalia Mcallister MD Surgical History (Last Updated 12/22/23 @ 10:03 by Vicky Cordova RN) Hx of bilateral cataract extraction Hx of cholecystectomy (Unknown) Medical History (Last Updated 11/23/23 @ 09:23 by Patricia Patino DO) Abnormal mammogram Cerumen impaction Depression GERD (gastroesophageal reflux disease) (Unknown) Hyperlipidemia Osteoarthritis (Unknown) Physical Therapy Inpatient Evaluation/Re-Eval M1 PT/OT-IP Prior Functional Status Start: 12/28/23 17:12 Freq: NEEDED Status: Active Protocol: Document 12/28/23 16:00 AB (Rec: 12/28/23 17:23 AB [id number]) Medical Review Prior Functional Status Medical History Reviewed Yes Communication able to make needs known Mobility and Gait pt stated that she was independent with all mobilities and ambulation without AD Social History Household Members children Living Arrangements House Number of Floors (Floors) 3 or More Floors Number of Stairs To Enter/Railing? pt will stay on main level of the house no steps to enter the house Home Environment Standard Height Toilet,Walk in Shower Home Equipment Front Wheel Walker,Straight Cane,Bedside Commode,Shower Seat with Backrest,Hand Held Shower Additional Social History Comment pt lives with her daughter who will assists pt at home M2 PT-IP Current Condition Start: 12/28/23 17:12 Freq: NEEDED Status: Active Protocol: Document 12/28/23 16:00 AB (Rec: 12/28/23 17:23 AB [id number]) Physical Therapy Current Condition Current Condition Evaluation Date 12/28/23 Treatment Diagnosis s/p R TKA; difficulty in walking Onset Date 12/28/23 M3 PT-IP Subjective Start: 12/28/23 17:12 Freq: NEEDED Status: Active Protocol: Document 12/28/23 16:00 AB (Rec: 12/28/23 17:23 AB [id number]) Subjective Physical Therapy Visit Type Type Initial Evaluation Visit Start Time 16:00 Visit Stop Time 16:50 Number of TELEMARKETING SALES REPRESENTATIVE Visits 0 Physical Therapy Visit Comments Patient Comments agreeable to do PT Therapy Pain Assessment Pain When Pain Assessed At Rest Pain Present Pain Present Pain Reported Location Right Knee Intensity 4 Scale Used Numeric (0 - 10) Pain Management Techniques Apply Cold,Distraction, Modification of Treatment,Re- positioning,Timing of Activity with Medications M4 PT-IP Mobility and Gait Start: 12/28/23 17:12 Freq: NEEDED Status: Active Protocol: Document 12/28/23 16:00 AB (Rec: 12/28/23 17:23 AB [id number]) PT-Bed Mobility Assessment Supine to Sit Supine to Sit Minimal Assistance Sit to Supine Sit to Supine Standby Assistance PT-Transfer Assessment Sit to and From Stand Sit to and from Stand Contact Guard Assistance,1 Person Assistance,Use of Upper Extremities Equipment Transfer Assistive Device Gait Belt,Front Wheeled Walker Orthotic/Prosthetic Devices or Brace: No Comments Mobility Comments pt supine in bed. daughters in room with pt. obtained PLOF and home set up. reviewed post-op folder contents and HEP. BP in supine 154/73. pt completed supine to sit min and cues. pt stated that she has R shoulder problem making it difficult for her to sit up. daughter assisted pt with supine to sit. pt able to sit on EOB SBA. completed sit to stand CGA and ambulated in room CGA ~ 30 ft using FWW . pt then c/o nausea and instructed to sit back on EOB. BP checked: 128/55. nausea dissipated. educated daughter on how to use safety belt and how to assist pt. daughter was able to put safety belt on pt. pt completed sit to supine SBA . positioned pt in bed. call light and table placed within reach. pt and daughters without further concerns. Gait Assessment Gait Gait Assistance Required: Contact Guard Assist Distance (Feet) 30 Able to Maintain Weight Bearing Status Yes During Gait Assistive Devices Assistive Device Gait Belt,Front Wheeled Walker Orthotic/Prosthetic Devices or Brace: No Gait Deviations General Gait Pattern Antalgic,Decreased Stride Length,Decreased Feet Clearance Factors Limiting Gait Function Factors Limiting Gait Function Decreased Activity Tolerance, Decreased Strength,Limited Range of Motion,Pain,Poor Balance PT-Balance Assessment Sitting Balance and Reactions Static Sitting Balance Ability Normal Dynamic Sitting Balance Ability Good Standing Balance and Reactions Static Standing Balance Ability Fair Dynamic Standing Balance Ability Fair Device Used FWW M5 PT-IP Objective Assessments Start: 12/28/23 17:12 Freq: NEEDED Status: Active Protocol: Document 12/28/23 16:00 AB (Rec: 12/28/23 17:23 AB [id number]) Orientation Orientation/Cognition Level of Alertness Alert Orientation Name,Place,Situation Safety Awareness Decreased Safety Awareness Memory Description Short Term Impaired Gross Range of Motion Lower Extremity ROM Assessment Within Functional Limits Strength Lower Extremity Strength Assessment Right Impaired Hip 4/5 Knee 4-/5 Coordination Assessment Gross Coordination Gross Coordination WNL Sensation Assessment Sensation Gross Sensation WNL Muscle Tone Muscle Tone WNL Yes M6 PT-IP Treatment Start: 12/28/23 17:12 Freq: NEEDED Status: Active Protocol: Document 12/28/23 16:00 AB (Rec: 12/28/23 17:23 AB [id number]) Physical Therapy Treatment Exercises Exercises Heel Slides Education Education Provided Precautions,Weight Bearing Status,Post-Op Packet,Safety M7 PT-IP Assessment and Plan Start: 12/28/23 17:12 Freq: NEEDED Status: Active Protocol: Document 12/28/23 16:00 AB (Rec: 12/28/23 17:23 AB [id number]) PT Summary Assessment and Plan Potential Rehabilitation Potential Fair Status of Condition at Evaluation Evolving Summary Impairments Pain,ROM,Strength,Balance, Coordination,Sensation,Tone, Cognition,Bed Mobility, Transfers,Gait,Activity Tolerance Assessment Summary pt is an 83 y/o F s/p R TKA POD0. pt requiring CGA with transfers and ambulation using FWW and plans to have her daughters assist her at home. pt stated that she has outpt PT scheduled. pt may go home when medically stable. Goals Bed Mobility Goal Independent Transfer Goal Independent,Front Wheeled Walker Gait Goal Independent,Front Wheel Walker Gait Distance 300 Days to Meet Goals 5 Frequency of Treatment Frequency Of Treatment Twice a Day Treatment Plan Physical Therapy Treatment Plan Bed Mobility Training,Transfer Training,Gait Training, Therapeutic Exercise,Balance Retraining,Post Op Education, Discharge Planning,Hot or Cold Pack,Neuromuscular Re-ed, Coordination Retraining,Manual Therapy Weight Bearing Status Weight Bearing Status Weight Bear as Tolerated Allowed Weight Bearing Amount (enter % RLE WBAT or #) (%) Recommendations To Nursing Amount of Assist Needed 1 Person Assist Discharge Recommendations PT Discharge Recommendations Home with Assistance, Outpatient PT Transportation Needs at Discharge Private Vehicle
--- NOTE | 2023-12-28 18:43 | PC.NURSE ---
Discharge Note Patient A&O, VSS, RA, no complaints of pain/discomfort. Discharge packet reviewed with patient and family, all questions/concerns addressed. PIV discontinued. Patient able to dress self and pack all belongings with assistance of daughters. Patient taken down via wheelchair to V.
== END 2023-12-28 18:00 | disposition home or self-care (01) ==
LOC: OR 09:04 → AC 09:04
PROVIDERS: PCP Family Medicine; Referring Provider Orthopaedic Surgery; Visit Provider Orthopaedic Surgery
PROC: 0SRC0JZ Replacement of Right Knee Joint with Synthetic Substitute, Open Approach (ICD-10-PCS; CPT 27447; principal; 2023-12-28 10:45)
DX: M17.11 Unilateral primary osteoarthritis, right knee (principal)
CPT/HCPCS: 27447; 73560; 97162; 97165; 97530; 97535; C1776; C9290; J0136; J0171; J0690; J1100; J2405; J2704; J3010

== ENCOUNTER → 2024-02-23 10:51 | Outpatient (CLI) | payer OTHER, SELFPAY ==
[2023-12-28 09:22] VITALS: BMI 29.6
--- NOTE | 2024-02-23 | DI.MG.S_ITS ---
BILATERAL DIGITAL SCREENING MAMMOGRAM 3D/2D WITH CAD: 02/23/2024 CLINICAL: Routine screening. Family history of breast cancer. Comparison is made to exams dated: 12/25/2022 mammogram, 12/15/2021 mammogram, and 12/13/2020 mammogram - [facility]. There are scattered areas of fibroglandular density in both breasts (category b / 25%-50% glandular tissue). Current study was also evaluated with a Computer Aided Detection (CAD) system. There are benign vascular calcifications in both breasts. No significant masses, calcifications, or other findings are seen in either breast. There has been no significant interval change. IMPRESSION: BENIGN There is no mammographic evidence of malignancy. A 1 year screening mammogram is recommended. Based on the Tyrer Cuzick model (a risk assessment model) the patient's lifetime risk is 1.6% and her 10 year risk is 0.0%. According to the ACR, ACS, and NCCN guidelines, an annual breast MRI exam along with mammogram is recommended if the patient's lifetime risk is 20% or greater. This exam was interpreted at Station ID: [id number]. NOTE: For mammograms, a report in lay terms will be sent to the patient. Approximately 15% of breast malignancies will not be visualized mammographically. In the management of a palpable breast mass, a negative mammogram must not discourage biopsy of a clinically suspicious lesion. Electronically Signed By: Angelica grande/lc:02/23/2024 11:34:41 letter sent: Normal Exam ACR BI-RADS Category 2: Benign Finding(s) [id number]
== END ==
PROVIDERS: PCP Family Medicine; Referring Provider Family Medicine; Visit Provider Family Medicine
DX: Z12.31 Encounter for screening mammogram for malignant neoplasm of breast (principal); Z80.3 Family history of malignant neoplasm of breast; R92.323 Mammographic fibroglandular density, bilateral breasts
CPT/HCPCS: 77063; 77067

== ENCOUNTER → 2025-03-22 10:24 | Outpatient (CLI) | payer OTHER, SELFPAY ==
[2023-12-28 09:22] VITALS: BMI 29.6
[2025-03-22 12:34] LABS: Alanine Aminotransferase 18 IU/L (<35); Albumin 4.4 g/dL (3.5-5.0); Albumin Globulin Ratio 2.1 (1.0-2.8); Alkaline Phosphatase 84 U/L (38-126); Aspartate Aminotransferase 27 IU/L (14-36); BUN Creatinine Ratio 15.3 (6-22); Bilirubin Total 0.6 mg/dL (0.2-1.3); Blood Urea Nitrogen 13 mg/dL (7-17); Calcium 9.4 mg/dL (8.4-10.2); Carbon Dioxide 25 mmol/L (22-32); Chloride 107 mmol/L (98-107); Estimated Glomerular Filt Rate > 60 mL/min (>60); Globulin 2.1 g/dL (1.7-4.1); Glucose 78 mg/dL (70-99); HEMOLYSIS < 15 (0-50); Potassium 4.4 mmol/L (3.4-5.1); Sodium 140 mmol/L (137-145); Total Protein 6.5 g/dL (6.3-8.2)
[2025-03-22 15:07] LABS: Vitamin D 25 Hydroxy (D3) 45.6 ng/mL (30.0-100.0)
== END ==
PROVIDERS: PCP Family Medicine; Referring Provider Family Medicine; Visit Provider Family Medicine
DX: E55.9 Vitamin D deficiency, unspecified (principal); G47.00 Insomnia, unspecified; Z86.39 Personal history of other endocrine, nutritional and metabolic disease
CPT/HCPCS: 36415; 80053; 82306

== ENCOUNTER → 2025-05-12 09:57 | Outpatient (CLI) | payer OTHER, SELFPAY ==
[2023-12-28 09:22] VITALS: BMI 29.6
--- NOTE | 2025-05-12 09:58 | DI.MG.S_ITS ---
MM screening mammo BI: 05/12/2025. BI-RADS: 2 CLINICAL: 84-year old female for bilateral screening mammogram. Tyrer-Cuzick lifetime risk of 1.6%. Current reported family history of breast cancer: sister. PRIOR EXAMS 02/23/2024, 12/25/2022, 12/15/2021, 12/13/2020. MAMMOGRAPHY TECHNIQUE: 2D and 3D (tomosynthesis) digital mammographic views obtained, with additional images as needed for full coverage. Current study was also evaluated with a Computer Aided Detection (CAD) system. DENSITY C. The breasts are heterogeneously dense, which may obscure small masses. MAMMOGRAPHY FINDINGS Right: No suspicious mass, asymmetry, microcalcification, or other abnormality seen. Left: Benign-appearing asymmetry noted on the left. There are no suspicious masses, calcifications, or other findings in the breast. IMPRESSION: Right * No evidence of malignancy. Left * No evidence of malignancy with benign findings. RECOMMENDATIONS Bilateral * Annual screening mammography. OVERALL ASSESSMENT CATEGORY BI-RADS-2: Benign. The [employer] recommends annual screening mammography beginning at age 40 for women with average risk of breast cancer. ELECTRONICALLY SIGNED: Kyaw Perez M.D. on 05/14/2025 at 07:36:05 AM PT Interpreting Station ID: [id number]
== END ==
PROVIDERS: PCP Family Medicine; Referring Provider Family Medicine; Visit Provider Family Medicine
DX: Z12.31 Encounter for screening mammogram for malignant neoplasm of breast (principal); Z80.3 Family history of malignant neoplasm of breast; R92.333 Mammographic heterogeneous density, bilateral breasts
CPT/HCPCS: 77063; 77067